=== PATIENT | male | born 1965 | race Caucasian/White ===

== ENCOUNTER 2019-10-06 18:40 | Inpatient (IN) | payer SELFPAY ==
[2019-10-06] VITALS (8 sets, daily range): BP systolic 147–172; BP diastolic 88–111; PULSE 69–106; RESP 14–18; TEMP 36.4–36.8; O2SAT 96–98; BMI 27.3
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
[2019-10-06 19:12] LABS: Basophils # 0.1 10^3/uL (0.0-0.1); Eosinophils # 0.1 10^3/uL (0.0-0.8); Eosinophils % 2.1 %; Hematocrit 43.5 % (42.0-52.0); Hemoglobin 14.5 g/dL (11.7-16.6); Lymphocytes # 1.7 10^3/uL (0.8-4.8); Lymphocytes % 27.2 %; Mean Corpuscular HGB Conc 33.3 g/dL (30.0-36.0); Mean Corpuscular Hemoglobin 29.8 pg (28.0-34.0); Mean Corpuscular Volume 89.3 fL (80-94); Monocytes # 0.6 10^3/uL (0.2-0.9); Monocytes % 10.2 %; Neutrophils # 3.67 10^3/uL (1.8-7.7); Neutrophils % 59.3 %; Nucleated Red Blood Cells % 0 %; Platelet Count 303 10^3/cmm (130-400); Red Blood Count 4.87 10^6/uL (4.1-5.3); Red Cell Distribution Width 12.1 % (12.1-15.1); White Blood Count 6.2 10^3/uL (4.0-10.0)
[2019-10-06] MEDS: morphine 4 mg/mL SDV 1 mL IVP ×3 (19:13→23:47)
[2019-10-06] MEDS: ondansetron 2 mg/ML SDV 2 mL 4 MG IVP (19:14)
[2019-10-06] MEDS: sodium chloride 0.9% 1,000 ML 999 ML IV (19:14)
[2019-10-06 19:34] LABS: Alanine Aminotransferase 29 U/L (0-41); Albumin Level 4.3 g/dL (3.5-5.2); Alkaline Phosphatase 119 IU/L (40-130); Anion Gap 15.8 (5-19); Aspartate Amino Transferase 23 U/L (0-40); Blood Urea Nitrogen 17 mg/dL (6-20); Calcium 9.5 mg/dL (8.5-10.5); Carbon Dioxide 25 mmol/L (22-29); Chloride 102 mmol/L (98-107); Globulin 3.1 g/dL (1.3-4.6); Glomerular Filtration Rate 116.7 mL/min (90-130); Glucose 172 mg/dL (65-115); Lipase 33 U/L (13-60); Osmolality Calculated 288 mOsm/kg (285-295); Potassium 3.8 mmol/L (3.5-5.1); Sodium 139 mmol/L (136-145); Total Bilirubin 0.3 mg/dL (0.15-1.2); Total Protein 7.4 g/dL (6.6-8.7)
[2019-10-06 19:35] LABS: Add Urine Microscopic? NO
[2019-10-06 19:36] LABS: Bilirubin Urine Neg (NEGATIVE); Blood Urine Neg (Negative); Glucose Urine UA Norm (Normal); Ketones Urine Negative (Negative); Leukocyte Esterase Urine Negative (Negative); Nitrate Urine Negative (Negative); Protein Urine Neg (Negative); Urine Appearance Clear (CLEAR); Urine Color Yellow (Yellow); Urobilinogen Urine Norm (Negative); pH Urine 6 (5-7)
[2019-10-06] MEDS: iohexol 300 mg/mL 100 mL Btl IV (19:52)
[2019-10-06] MEDS: piperacillin-tazobactam 3.375 GM in sodium chloride 0.9% (plus) 50 ML IV (21:12)
--- NOTE | 2019-10-06 21:58 | PC.NURSE ---
REPORT GIVEN TO MITCHEL Craft RN MED SURG
[2019-10-06 22:43] LABS: Lactate (Lactic Acid level) 1.8 mmol/L (0.5-2.2)
[2019-10-06] MEDS: sodium chloride 0.9% 1,000 ML 100 ML IV (22:54)
[2019-10-07] VITALS (15 sets, daily range): BP systolic 109–184; BP diastolic 63–99; PULSE 52–84; RESP 15–22; TEMP 36.2–37; O2SAT 94–100
--- NOTE | 2019-10-07 05:42 | PM.HP ---
Providers/Chief Complaint Admitting Physician: Timothy Dc MD Chief Complaint: lower abd pain History of Present Illness Chief Complaint: My right groin hurts History of present illness: Mr. Javid Mata is a pleasant 54 year old male otherwise healthy, presented to the emergency department yesterday evening with right groin hernia that has been incarcerated for the past week or so and the patient has been having intermittent episodes of able to push it partially back and forth, yesterday he came to the ER as has been hurting for the past week and he just could not handle his discomfort more, he continued to be having stable vital signs and patient reports that he had this hernia for about a year and he got so busy to seek surgery, he also reports history of not having a bowel movement for the past 2 weeks yet he continues to pass a lot of gas. Patient reports no previous hernia surgery done on the right groin Upon evaluation in the emergency department lab work was of insignificance and the patient undergone a CT scan of the abdomen and pelvis that showed; Liver: The liver demonstrates punctate calcifications, consistent with remote granulomatous organism exposure. Gallbladder and bile ducts: The gallbladder is normal. Pancreas: The pancreas is normal. Spleen: The spleen demonstrates punctate calcifications, consistent with remote granulomatous organism exposure. Adrenals: The adrenal glands are normal. Kidneys and ureters: The kidneys are normal. Stomach and bowel: Unremarkable. No obstruction. No mucosal thickening. Appendix: A normal appendix is identified. A normal appendix is identified. Intraperitoneal space: Unremarkable. No free air. No significant fluid collection. Vasculature: Unremarkable. No abdominal aortic aneurysm. Lymph nodes: Unremarkable. No enlarged lymph nodes. Bladder: Unremarkable as visualized. Reproductive: Unremarkable as visualized. Bones/joints: The lumbar spine demonstrates mild degenerative changes at multiple levels. Soft tissues: There is a right inguinal hernia which contains a portion of the sigmoid colon but without evidence for incarceration or obstruction. Correlation with clinical and physical examination findings is suggested. CT/CT abdomen pelvis w con* [id number] IMPRESSION: 1. Right inguinal hernia containing a portion of the sigmoid colon. 2. Old granulomatous disease. Patient reports when I asked him that he did have a colonoscopy before few years and was normal, general surgery was consulted for further evaluation and potential intervention. On assessment the patient he said that an attempt to reduce the hernia back by ED provider was done without obvious success yet he was able himself to push the hernia back as used to about 11 PM yesterday. Review of Systems General: Reports: 10 or more systems reviewed and unremarkable except in HPI and below Medications/Allergies Home Medications Medication Instructions Recorded Confirmed Last Taken Type No Known Home Medications 10/06/19 10/06/19 Unknown History Allergies Allergy/AdvReac Type Severity Reaction Status Date / Time No Known Allergies Allergy Verified 10/07/19 06:07 Vitals/I&O/Wt Last Vital Signs Temp 97.9 F 10/07/19 03:16 Pulse 58 L 10/07/19 03:16 Resp 16 10/07/19 03:16 BP 151/76 10/07/19 03:16 Pulse Ox 97 10/07/19 03:16 Weight last 48 hrs Weight 180 lb Physical Exam Narrative: EXAM NARRATIVE: Patient is conscious alert oriented X3 BMI 27.4 Head and neck examination PERRLA no masses no cervical lymphadenopathy no jaundice Cardiac examination audible S1-S2 no murmurs no gallops no arrhythmias Chest is clear bilateral,abscence of Rhonchi or wheezes,no surgical emphysema Abdomen nontender nondistended soft no organomegaly guarding or rigidity/no signs of peritonitis Right groin tenderness without evidence of incarcerated inguinal hernia clinically there is an impulse on cough Extremities no cyanosis no clubbing no edema Data : 10/06/19 19:05 10/06/19 19:05 Micro: Microbiology 10/06/19 19:05 Blood Culture - Preliminary Blood SPECIMEN COLLECTED A&P Assessment and plan (1) Right groin hernia: After thorough history physical examination and reviewing the chart and images with my personal interpretation, I did tour counselor the patient for open right inguinal hernia repair with mesh placement, indications, risks, benefits and alternatives all discussed with the patient and he did agree to proceed. An informed consent per chart Status: Acute Attestations Medical Necessity Statement*: Observation Time Spent in Patient Care: (>than 50% of time spent in counselling and/or direct pt care on unit). Coding Level of Care Code Acute Washing Machine Assembler for Doc Sharif Diagnoses Right groin hernia K40.90
[2019-10-07] MEDS: sodium chloride 0.9% 1,000 ML 100 ML IV ×2 (08:21→18:12)
--- NOTE | 2019-10-07 09:56 | PC.NURSE ---
pt stated he wanted jewelry to be left at bedside before his procedure.
[2019-10-07] MEDS: sodium chloride 0.9% 1,000 ML 999 ML IV (10:09)
--- NOTE | 2019-10-07 10:42 | ANES.PREANE2 ---
Pre-Anesthetic Assessment Pre-Anesthetic Assessment: Height/Weight: Height 1.73 m Weight 81.647 kg Temp Pulse Resp BP Pulse Ox 97.5 F L 63 18 160/96 96 10/07/19 10:04 10/07/19 10:04 10/07/19 10:04 10/07/19 10:04 10/07/19 10:04 Preop Diagnosis: Right groin hernia Proposed Procedure: Operation Date: 10/07/19 11:05 Proposed Procedures p Right Groin Hernia Repair w/mesh(Right) - Timothy Dc MD Familial anesthetic complications: None Was Beta Melina taken within 24 hours: N/A Last intake: Intake Last Liquid Date 10/06/19 Last Liquid Time 23:55 Last Solid Date 10/06/19 Last Solid Time 10:00 Social: Social History: Tobacco and No alcohol Exam: Pre-Anes Outpt Exam: alert, oriented x 3, clear to auscultation bilaterally and regular rate & rhythm Airway: Cervical ROM: WNL MP: 4 Dentition: Chipped Pulmonary: Pulmonary: None reported CV/HEM: CV/HEM: HTN : : None reported Hepatic: Hepatic: None reported Metabolic: Metabolic: None reported Musc/skel: Musc/skel: None reported Neuropsych: Neuropsych: None reported Anesthetic Plan: ASA status: 1 Anesthesia: General Risk of > 500 ml blood loss (7ml/kg in children): No Meds/Allergies Current Medications: Current Medications Generic Name Dose Route Start Last Admin Trade Name Freq PRN Reason Stop Dose Admin Sodium Chloride 1,000 mls @ 100 m ls/hr 10/06/19 21:45 10/07/19 08:21 Sodium Chloride 0.9% IV 100 mls/hr .Q10H MONIK Administration Morphine Sulfate 2 - 4 mg 10/06/19 23:24 10/06/19 23:47 Morphine IVP 4 mg Q2H PRN Administration SEVERE PAIN Data Anesthesia CBC & Chem 7: 10/06/19 19:05 10/06/19 19:05 Other Labs: Laboratory Results - last 48 hr 10/06/19 10/06/19 10/06/19 19:05 19:05 19:05 WBC 6.2 RBC 4.87 Hgb 14.5 Hct 43.5 MCV 89.3 MCH 29.8 MCHC 33.3 RDW 12.1 Plt Count 303 MPV 9.0 Neut % (Auto) 59.3 Lymph % (Auto) 27.2 Bea[place]gard % (Auto) 10.2 Eos % (Auto) 2.1 Baso % (Auto) 1.0 Neut # (Auto) 3.67 Lymph # (Auto) 1.7 [place] # (Auto) 0.6 Eos # (Auto) 0.1 Baso # (Auto) 0.1 Nucleated RBC % (auto) 0 Nucleated RBCs # 0.0 Sodium 139 Potassium 3.8 Chloride 102 Carbon Dioxide 25 Anion Gap 15.8 BUN 17 Creatinine 0.7 GFR Calculation 116.7 Glucose 172 H Calculated Osmolality 288 Lactate 1.8 Calcium 9.5 Total Bilirubin 0.3 AST 23 ALT 29 Alkaline Phosphatase 119 Total Protein 7.4 Albumin 4.3 Globulin 3.1 Lipase 33 Urine Color Urine Appearance Urine pH Ur Specific Gallant Urine Protein Urine Glucose (UA) Urine Ketones Urine Blood Urine Nitrate Urine Bilirubin Urine Urobilinogen Ur Leukocyte Esterase 10/06/19 19:12 WBC RBC Hgb Hct MCV MCH MCHC RDW Plt Count MPV Neut % (Auto) Lymph % (Auto) [place] % (Auto) Eos % (Auto) Baso % (Auto) Neut # (Auto) Lymph # (Auto) [place] # (Auto) Eos # (Auto) Baso # (Auto) Nucleated RBC % (auto) Nucleated RBCs # Sodium Potassium Chloride Carbon Dioxide Anion Gap BUN Creatinine GFR Calculation Glucose Calculated Osmolality Lactate Calcium Total Bilirubin AST ALT Alkaline Phosphatase Total Protein Albumin Globulin Lipase Urine Color Yellow Urine Appearance Clear Urine pH 6 Ur Specific Gallant 1.010 Urine Protein Neg Urine Glucose (UA) Norm Urine Ketones Negative Urine Blood Neg Urine Nitrate Negative Urine Bilirubin Neg Urine Urobilinogen Norm Ur Leukocyte Esterase Negative Micro: Microbiology 10/06/19 19:05 Blood Culture - Preliminary Blood SPECIMEN COLLECTED Cardiac Studies: No Data to Display
--- NOTE | 2019-10-07 10:54 | PC.CHAP ---
Pastoral Care Encounter/Spiritual Assessment Type of Contact [] Declined specimen technician visit [] Patient/Family/Request visit [] Outpatient visit [] Follow-up visit [] Physician referral [] Code/Alert [] Routine visit [] Staff referral [] Actively dying [] Patient sleeping [] Family support [] [] Out of room [] Palliative care [] [] Receiving care in room [] Pre-surgical visit [] Trauma [] Long length of stay [] ICU visit [x] Other: Procedure out of room Relational/Emotional Strength [] Patient feels connected with others/family/visitors/staff [] Distress [] Loneliness/isolation [] Abandonment Spirituality of Patient [] Person of Yessi [] Attends Religious of their Yessi [] Believes in Prayer [] Reads Bible or Faith materials [] There are Spiritual issues to be addressed Permanent Waver Interventions [] Prayer [] Active listening [] Non-anxious presence [] Spiritual/emotional support [] Crisis/trauma care [] Spiritual counseling [] Bereavement support [] Provided bereavement packet [] Provided Bible/devotional materials [] Provided toy/stuffed animal, coloring book to patient or family member [] Provided Communion [] Anointing/Mcdaniels [] Salvation [] Completed spiritual assessment [] Other: Impact on Illness or Injury [] Angry [] Fearful [] Anxious [] Often cries [] Exhaustion [] Unable to work [] Unable to attend protestant [] Unable to walk/stand [] Unable to read [] Unable to drive [] Unable to eat/drink [] Unable to sleep [] Unable to be with family [] Patient intubated [] Other: Summary Procedure out of room, moved from room 251-2 Time spent with patient 5 mins
[2019-10-07] MEDS: lidocaine 2% INJ 20 mL INJECTION (12:28)
--- NOTE | 2019-10-07 12:34 | PM.OP ---
Operative Report Date of procedure: October 07, 2019 Pre-op Diagnosis: Right groin hernia Post-op diagnosis: same (Right large inguinal scrotal hernia containing normal looking viscera and large associated lipoma of the cord) Procedure Done: Right open inguinal hernia repair with mesh placement X large polypropylene tension free Excision of lipoma of the cord Implants: X large polypropylene mesh Specimens removed/disposition: Lipoma of the cord Surgeon: Timothy Dc Slip Injector And Applicator: Surgical joão Llanes Circulating nurse Sweta Anesthesia: General (academic support coordinator Ulises) Estimated blood loss (mL): 10 Condition: stable Disposition: observation Brief History: This is a pleasant 54 years old gentleman presents with symptomatic right groin hernia, full H&P per chart. After thorough history physical examination and reviewing the chart and personal interpretation of the CT scan images I did credit counselor the patient for open right groin hernia repair with mesh placement Procedure: Patient was identified in the holding area and right groin was marked by mysel ,patient was taken to the operating room where he was placed in supine position, antibiotic was given with induction, endotracheal tube was placed per anesthesia, Anne catheter was inserted by the circulating nurse revealing clear urine, prep and drape of both groins and lower abdomen and scrotum including the genitalia was done under the usual sterile technique. Time-out was done verifying the patient's name/date of /planned procedure destination after the procedure, all were in agreement. SCDs confirmed to be functioning, preoperative antibiotics administered per protocol, and beta tremaine protocol was confirmed. I started with a right groin incision 1-1/2 finger above the inguinal ligament towards the pubic tubercle, used 15 blade knife skin incision , continued to dissect using Bovie to subcutaneous, García's fascia down to the external oblique aponeurosis, large right indirect inguinal hernia extending to the scrotum was identified, external oblique aponeurosis was then incised using a 10 blade knife, after application of 2 hemostats across sides of the fascia and opened it, right ileo-inguinal nerve was safeguard, I managed to dissect and deliver the enlarged spermatic cord out of the wound, and placed a Parker drain for traction and countertraction, I dissected the spermatic cord and the vas deferens is identified and safeguarded ,as I identified a right inguinal hernia sac w viable contents. The hernia sac was totally dissected until I reached the patulous deep inguinal ring,.After appropriate dissection large lipoma of the cord was excised and sent for permanent pathology,then the hernia was gently pushed to the abdominal cavity. Attention was now deviated to mesh placement , using polypropylene mesh system was applied tension-free(X-large size), a cone was applied at the deep inguinal ring stabilized by Silk sutures 2/0, then a sheet of mesh was applied onto the floor of the posterior wall of the right inguinal canal and anchored medially to the pubic tubercle then inferiorly to the underlying surface of the inguinal ligament and superiorly to the internal oblique aponeurosis using Silk sutures 2/0, both limbs of the mesh encircled the exit of the cord at the deep inguinal ring, and stitched down. The cord maintained to be in good position thorough irrigation of the wound was done with normal saline and closure of the external oblique aponeurosis was done by 2/O Vicryl, followed by approximation of García's fascia by 3-0 Vicryl then 4/0 Monocryl to close the skin, dressing was then applied in the form of Dermabond. Counts of instruments, sponges and needles were completed at the end of the procedure. Scrotal support was then placed Patient tolerated the procedure well and was taken to the recovery area after extubation I was present for the whole entire procedure
--- NOTE | 2019-10-07 12:51 | SUR.PHASEI ---
1249 PATIENT TO PACU FROM OR. RR EVEN AND UNLABORED. PWD. SPO2 100% ON SIMPLE MASK AT 8L. INCISION TO RIGHT LOWER ABDOMEN, CDI.
--- NOTE | 2019-10-07 13:15 | ANE.PACU2 ---
Inpatient post-anesthesia follow up: Airway intact: Yes Vital signs: Temperature 98.5 F Pulse Rate [Monito r] 106 Pulse Rate 52 Respiratory Rate 24 Blood Pressure [Ri ght Arm] 147/111 Blood Pressure 110/70 Pulse Oximetry 95 Oxygen Delivery Me thod Room Air Oxygen Flow Rate 8 Fraction of Inspir ed Oxygen Hydration adequate: Yes Nausea and vomiting: No Pain level: 1 Mental status: Baseline
--- NOTE | 2019-10-07 13:15 | SUR.PHASEI ---
1305 PATIENT TO MED SURG. NO DISTRESS. RR EVEN AND UNLABORED. INCISION TO RIGHT LOWER GROIN, CDI. PATIENT REFUSING ICE CHIPS. DENIES PAIN. PATIENT AMBULATORY FROM [facility] TO BED WITH STEADY GAIT.
[2019-10-07] MEDS: psyllium powder Pkt 1 PACKET PO (15:24)
[2019-10-07] MEDS: HYDROcodone-acetaminophen 5-325 mg Tablet 1 TAB PO (18:16)
--- NOTE | 2019-10-07 19:27 | PC.NURSE ---
PT HAD INGUINAL REPAIR SURGERY, PT HAS HAD ONE HYDROCODONE, HE HAS BEEN UP AND WALKING IN ROOM.PT HAD A LARGE BM PER PT. PT RESTING AT THIS TIME.
--- NOTE | 2019-10-07 23:00 | PC.NURSE ---
Patient requested that he be disconnected from his IV fluids. He states I am drinking plenty by mouth and doesn't want to get up to pee every 10 minutes.
[2019-10-08 04:10] VITALS: BP 110/70; PULSE 52; RESP 24; TEMP 36.9; O2SAT 95
--- NOTE | 2019-10-08 06:48 | P.DS_ITS ---
Discharge Providers Date of Admission: 10/07/19 15:02 Date of Discharge: October 08, 2019 Attending Provider at Admission: Timothy Dc MD Attending Provider at Discharge: Timothy Dc MD Diagnoses at Discharge Discharge Diagnosis (1) Right groin hernia: Status: Resolved Reason for Visit Reason for Visit: lower abd pain Hospital Course Discharge Summary: Patient was admitted for ongoing right groin pain with element of incarceration of right groin hernia, undergone uneventful open right inguinal hernia repair with mesh placement and postoperatively did well and had a bowel movement and tolerated well p.o. intake, patient continued to have stable vital signs and good urine output, will plan to discharge home today Physical Exam Narrative: EXAM NARRATIVE: Patient is conscious alert oriented X3 BMI 27 Head and neck examination PERRLA no masses no cervical lymphadenopathy no jaundice Abdomen nontender nondistended soft no organomegaly guarding or rigidity/no signs of peritonitis Right groin incision is clean dry and intact and no scrotal swelling Extremities no cyanosis no clubbing no edema Discharge Data Data Completed and Pending: Completed Studies During Hospitalization Category Date Time Status CT abdomen pelvis w con* [id number] Urge nt Cat Scan 10/06/19 19:02 Completed Pending at discharge Category Date Time Status Blood Culture Sta t Lab 10/06/19 19:05 Results Pathology: Surgic al [PTH] Routine Pth 10/07/19 12:52 Received Vitals: Last Vital Signs Temp 98.5 F 10/08/19 04:10 Pulse 52 L 10/08/19 04:10 Resp 24 H 10/08/19 04:10 BP 110/70 10/08/19 04:10 Pulse Ox 95 10/08/19 04:10 Discharge Plan Discharge Patient Disposition: Home Condition: Stable Prescriptions: [place] 5-325 mg tablet 1 tab PO Q6H PRN (Reason: pain) Qty: 28 RF: 0 No Action No Known Home Medications RF: 0 Discharge Orders: Discharge Order (Routine); Ordered 10/08/19 Ordered By: Timothy Dc Referrals: Timothy Dc MD [Physician] - 10/20/19 10:15 am (Please follow up with Dr. Dc at [facility] Surgical services on October 19 at 1015) Discharge Diet: Advance as tolerated Discharge Activity: Limit activity as instructed Patient Instructions: Hydrocodone (By mouth), Inguinal Hernia (DC) Activity Restrictions/Additional Instructions: 1. Patient can shower after 48 hours from surgery 2. Remove Dermabond 7 to 10 days after surgery, if there is a secondary dressing can take down after 48 hours. 3. Up and walking as tolerated 4. Do lift more than 5 pounds first 2 weeks after surgery and not more than 25 pounds 6 to 8 weeks after surgery. 5. Do not operate heavy machinery or drive while using pain medications. 6.Contact the office or return to the ER for worsening nausea vomiting fevers or chills, or noticing any redness around incision sites or discharge. Discharge Date/Time: 10/08/19 09:30 Discharge Attestations Time Spent in Discharge Care*: less than 30 min Specific Discharge Activities: Specific discharge activities: educating patient Status at Discharge: Cognitive status at discharge: cognitively intact , Behavioral status at discharge: cooperative , Functional status at discharge: independent ambulation Overall status at discharge: patient is progressing back to baseline Quality Metrics Clinical Quality Measures During this hospital stay, did patient experience: None Coding Level of Care Code Acute Feather Boner for Doc Sharif Diagnoses Right groin hernia K40.90
[2019-10-08 08:00] VITALS: BP 140/79; PULSE 71; RESP 18; TEMP 36.6; O2SAT 95
[2019-10-08] MEDS: HYDROcodone-acetaminophen 5-325 mg Tablet 1 TAB PO (09:13)
[2019-10-08 10:21] VITALS: BP 140/79; PULSE 71; RESP 18; TEMP 36.6; O2SAT 95
--- NOTE | 2019-10-08 10:21 | PC.NURSE ---
this nurse went over discharge instructions, signs and symptoms of infection and all other instructions in discharge. pt had no questions and this nurse advised pt to call if any questions arise. pt verbalized understanding.
== END 2019-10-08 09:30 | disposition home or self-care (01) | DRG 352 ==
LOC: ER 18:48 → MEDSURG 21:45
PROVIDERS: Physician Assistant; Admitting Provider Surgery; Visit Provider Surgery
PROC: 0YU50JZ Supplement Right Inguinal Region with Synthetic Substitute, Open Approach (ICD-10-PCS; principal; 2019-10-07 11:05)
DX: K40.90 Unilateral inguinal hernia, without obstruction or gangrene, not specified as recurrent (principal); I10 Essential (primary) hypertension
CPT/HCPCS: 12345; 36415; 74177; 80053; 81003; 83605; 83690; 85025; 87040; 88302; 96375; 99283; G0378; J0131; J1100; J2270; J2405; J2543; J2704; J2710; J3010; J3490; J7030; Q9967

== ENCOUNTER 2020-07-03 06:26 | Emergency (ER) | payer SELFPAY ==
[2020-07-03 06:31] VITALS: BP 156/111; PULSE 99; RESP 18; TEMP 35.8; O2SAT 98; BMI 27.3
[2020-07-03 06:50] VITALS: BP 145/95; PULSE 100; RESP 18; O2SAT 99
--- NOTE | 2020-07-03 06:53 | ED_ITS ---
HPI - Skin/Abscess/Foreign Bdy General: Chief complaint: Skin/Abscess/Foreign Body Stated complaint: LEFT UPPER ARE PAIN Time Seen by Provider: 07/03/20 06:30 History of Present Illness: HPI narrative: 55-year-old male comes in he has a abscess on the back of his upper left arm that began over the last couple days it exquisitely tender with any movement. He denies any fever sweats chills he does not recall anything that seem to precipitate this. MD complaint: abscess/boil Onset (ago): day(s) Tetanus up to date: yes Location: LUE Severity: moderate Quality: sharp Pain Consistency: constant Relieving factors: none Exacerbating factors: palpation Associated symptoms: Reports arthralgias and itching; Deny chills, cough, fever(s), myalgias, nausea, rigidity, short of breath or vomiting Treatments prior to arrival: none Review of Systems Const: Denies: fever(s) or chills Card: Denies: chest pain, edema, dyspnea on exertion or orthopnea Resp: Denies: dyspnea, productive cough or non-productive cough GI: Denies: nausea or vomiting Physical Exam Const: COMMON NORMALS: no acute distress GENERAL APPEARANCE: cooperative and comfortable ORIENTATION/CONSCIOUSNESS: Yes awake, Yes oriented to person, Yes oriented to place and Yes oriented to time HENMT: COMMON NORMALS: normocephalic, atraumatic and hearing grossly normal bilaterally HEAD & SCALP: normocephalic and atraumatic Neck/C-Spine: COMMON NORMALS: no JVD Lymph: LYMPHATIC: no lymphadenopathy noted and no lymphedema noted Resp: COMMON NORMALS: normal respiratory effort, No retractions, No use of accessory muscles and clear to auscultation bilaterally AUSCULTATION: clear to auscultation bilaterally Cardio: COMMON NORMALS: no JVD, regular rate, regular rhythm and No murmurs present (Cardio) RATE: regular rate RHYTHM: regular rhythm Extremity: NARRATIVE EXTREMITY EXAM: Large exquisitely tender mildly indurated erythematous lesion on the mid portion of the posterior left upper extremity. Superficially there appears to be little bit of pointing on ultrasound however there is no large abscess cavity with an 18-gauge needle and was able to open up and drain a small area of purulent fluid which was cultured but could not express any significant amount. Neuro: SENSORIUM/ORIENTATION: Yes oriented to person, Yes oriented to place and Yes oriented to time Procedures Abscess I/D Site: upper extremity Side (if applicable): left Technique: other (Small incisions made over 2 areas of pointing with the bevel of an 18-gauge needle) Amount of fluid expressed (mL): 1 Packing used?: none Course Vital Signs: Vital signs: Vital Signs Temperature 96.4 F L 07/03/20 06:31 Pulse Rate 99 07/03/20 06:31 Respiratory Rate 18 07/03/20 06:31 Blood Pressure 156/111 07/03/20 06:31 Pulse Oximetry 98 07/03/20 06:31 MDM - Skin/Abscess/Foreign Bdy MDM Narrative: Medical decision making narrative: On ultrasound there is some superficial small pockets of fluid but everything else deep appears to be a phlegmon. The areas were incised with the bevel of an 18-gauge needle and drained as above see the notes. Very small amount of fluid less than a milliliter was expressed this was cultured. Wound care instructions given s tarted on antibiotics pain medications given apply moist heat frequently. Discharge Plan Discharge Patient Disposition: Home Clinical Impression: Abscess of skin or subcutaneous tissue Condition: Stable Prescriptions: New Bactrim DS 800-160 mg tablet 1 tab PO BID 7 Days Qty: 14 RF: 0 hydrocodone-acetaminophen 5-325 mg tablet 1 tab PO Q6H PRN (Reason: pain) Qty: 10 RF: 0 No [place] 5-325 mg tablet 1 tab PO Q6H PRN (Reason: pain) Qty: 28 RF: 0 Discharge Orders: Discharge ED (Routine); Ordered 07/03/20 Ordered By: Ramin Armando Discharge Diet: Usual diet Discharge Activity: Resume usual activity Patient Instructions: Opioid Safety Coding Level of Care Code ED Technical Staff Engineer for Doc Sharif
[2020-07-03 06:57] VITALS: BP 145/95; PULSE 98; RESP 18; TEMP 36.6; O2SAT 99
== END 2020-07-03 07:02 | disposition home or self-care (01) ==
PROVIDERS: Emergency Provider Family Medicine
DX: L02.414 Cutaneous abscess of left upper limb (principal)
CPT/HCPCS: 10060; 87070; 87077; 87186; 99282

== ENCOUNTER 2020-11-04 05:07 | Observation (INO) | payer SELFPAY ==
[2020-11-04] VITALS (14 sets, daily range): BP systolic 154–185; BP diastolic 88–118; PULSE 61–85; RESP 14–28; TEMP 36.5–37.1; O2SAT 91–100; BMI 26.6
--- NOTE | 2020-11-04 05:22 | CTR_ITS ---
PROCEDURE INFORMATION: Exam: CT Abdomen And Pelvis With Contrast Exam date and time: 11/04/2020 5:22 AM Age: 55 years old Clinical indication: Abdominal pain; Localized; Right upper quadrant (ruq); Patient HX: Severe ruq pain. ; Additional info: Abd pain TECHNIQUE: Imaging protocol: Computed tomography of the abdomen and pelvis with contrast. Radiation optimization: All CT scans at this facility use at least one of these dose optimization techniques: automated exposure control; mA and/or kV adjustment per patient size (includes targeted exams where dose is matched to clinical indication); or iterative reconstruction. Contrast material: OMNI 300; Contrast volume: 95 ml; Contrast route: INTRAVENOUS (IV); COMPARISON: CT abdomen pelvis w con* [id number] 10/06/2019 7:45 PM RADIATION DOSE METRICS: Total DLP (mGy-cm): 1132.43 FINDINGS: Lungs: Tiny calcified granulomas are seen in both lungs. Small calcified lymph nodes noted in the hilar region bilaterally, likely sequela of previous granulomatous disease. Liver: There is tiny calcific densities scattered throughout the liver, likely sequela of previous granulomatous disease. The liver is otherwise unremarkable. Gallbladder and bile ducts: Normal. No calcified stones. No ductal dilation. Pancreas: Normal. No ductal dilation. Spleen: There is tiny calcific densities scattered throughout the spleen, likely sequela of previous granulomatous disease. The spleen is otherwise unremarkable. Adrenal glands: Normal. No mass. Kidneys and ureters: Normal. No hydronephrosis. Stomach and bowel: Unremarkable. No obstruction. No mucosal thickening. Appendix: No evidence of appendicitis. Intraperitoneal space: Unremarkable. No free air. No significant fluid collection. Vasculature: Mild diffuse atherosclerotic disease is present. Lymph nodes: Unremarkable. Urinary bladder: Unremarkable as visualized. Reproductive: Unremarkable as visualized. Bones/joints: Degenerative changes of the spine seen. Soft tissues: Unremarkable. CT/CT abdomen pelvis w con* [id number] IMPRESSION: No acute intra-abdominal or intrapelvic pathology. Radiation Dose CTDIVOL = (mGy): DLP = 1132.43 (mGy-cm)
--- NOTE | 2020-11-04 05:23 | W.ED.BACK ---
Documented by User: Liz Rojas MD 11/04/20 05:24 HPI - Back Pain/Injury General: Chief Complaint: Back Pain/Injury Stated Complaint: ABD PAIN Time Seen by Provider: 11/04/20 05:17 Source: patient Mode of arrival: ambulatory Limitations: no limitations History of Present Illness: HPI Narrative: 55-year-old male states that roughly 1 to 2 hours ago he started having severe right-sided flank pain radiating to his right upper abdomen. States he has had kidney stones the past but this feels different. He denies any worsening improving factors. He had no vomiting or diarrhea. Denies any fevers. He states his pain is currently a 10 out of 10 and does appear to be uncomfortable. Associated symptoms: Reports abdominal pain; Deny chills, dysuria or fever(s) Review of Systems Const: Denies: fever(s), chills, body aches or change in appetite Eyes: Denies: blurry vision or eye discomfort ENMT: Denies: throat pain or dental pain Card: Denies: chest pain Resp: Denies: dyspnea GI: Reports: abdominal pain : Denies: dysuria Musc: Denies: neck pain or back pain Skin/Breast: Denies: rash Neuro: Denies: headache(s) Psych: Denies: depression Devin/Lymph: Denies: easy bruising All/Imm: Denies: urticaria PFSH ED PFSH: Medical History (Updated 11/06/20 @ 00:01 by ) Tobacco dependency Surgical History (Updated 11/04/20 @ 13:11 by Homero Gardner MD) History of hemorrhoidectomy History of hernia repair Family History (Updated 11/04/20 @ 13:11 by Homero Gardner MD) Other Cancer Social History (Updated 11/04/20 @ 13:11 by Homero Gardner MD) Smoking and tobacco status: current every day smoker Alcohol intake: former Physical Exam Const: COMMON NORMALS: no acute distress, patient oriented x3 and healthy appearing HENMT: COMMON NORMALS: normocephalic and atraumatic HEAD & SCALP: normocephalic and atraumatic Eye: COMMON NORMALS: Equal, round and reactive pupils present and EOMs intact bilaterally PUPIL: Yes Equal, round and reactive pupils present Neck/C-Spine: COMMON NORMALS: full ROM and supple Chest: COMMONS NORMALS: normal inspection of the chest and normal palpation of entire chest wall Resp: COMMON NORMALS: normal respiratory effort, No retractions, No use of accessory muscles and clear to auscultation bilaterally AUSCULTATION: clear to auscultation bilaterally Cardio: COMMON NORMALS: regular rate, regular rhythm and No murmurs present (Cardio) RATE: regular rate RHYTHM: regular rhythm GI: COMMON NORMALS: Normal to inspection, nondistended, normoactive bowel sounds present, Soft to palpation and no masses PALPATION: Yes Soft to palpation and Yes Tenderness to palpation present (GI) Details: RUQ Extremity: COMMON NORMALS: normal to inspection and full ROM Neuro: COMMON NORMALS: patient oriented x3, moves all extremities and no focal motor deficits Psych: COMMON NORMALS: mental status grossly normal, Normal thought process present and cooperative THOUGHT PROCESS: Normal thought process present Skin: COMMON NORMALS: no rashes or lesions noted and no wounds GENERAL SKIN EXAM: no rashes or lesions noted Course Vital Signs: Vital signs: Vital Signs Temperature 98.4 F 11/05/20 11:28 Pulse Rate 109 H 11/05/20 11:28 Respiratory Rate 18 11/05/20 11:28 Blood Pressure 143/81 11/05/20 11:28 Pulse Oximetry 95 11/05/20 11:28 MDM - Back Pain/Injury Lab Data: Labs: Lab Results 11/04/20 11/04/20 11/04/20 Range/Units 05:20 05:20 05:20 WBC 6.9 (4.0-10.0) 10^3/ uL RBC 5.35 H (4.1-5.3) 10^6/u L Hgb 15.8 (11.7-16.6) g/dL Hct 47.2 (42.0-52.0) % MCV 88.2 (80-94) fl MCH 29.5 (28.0-34.0) pg MCHC 33.5 (30.0-36.0) g/dL RDW 12.2 (12.1-15.1) % Plt Count 317 (130-400) 10^3/c mm MPV 8.7 (7.4-10.4) fL Neut % (Auto) 43.6 % Lymph % (Auto) 42.5 % Clar[place] % (Auto) 9.4 % Eos % (Auto) 3.2 % Baso % (Auto) 1.0 % Neut # (Auto) 3.00 (1.8-7.7) 10^3/u L Lymph # (Auto) 2.9 (0.8-4.8) 10^3/u L Clarion # (Auto) 0.7 (0.2-0.9) 10^3/u L Eos # (Auto) 0.2 (0.0-0.8) 10^3/u L Baso # (Auto) 0.1 (0.0-0.1) 10^3/u L Nucleated RBC % (a uto) 0 % Nucleated RBCs # 0.0 /100WBC Sodium 141 (136-145) mmol/L Potassium 3.7 (3.5-5.1) mmol/L Chloride 103 (98-107) mmol/L Carbon Dioxide 23 (22-29) mmol/L Anion Gap 18.7 (5-19) BUN 10 (6-20) mg/dL Creatinine 0.7 (0.7-1.2) mg/dL GFR Calculation 116.2 (90-130) mL/min Glucose 146 H (65-115) mg/dL Estimat Average Gl ucose Hemoglobin A1c (4.0-6.0) % Calculated Osmolal ity 294 (285-295) mOsm/k g Calcium 9.3 (8.5-10.5) mg/dL Total Bilirubin 0.3 (0.15-1.2) mg/dL AST 14 (0-40) U/L ALT 15 (0-41) U/L Alkaline Phosphata se 120 (40-130) IU/L Total Protein 7.4 (6.6-8.7) g/dL Albumin 4.2 (3.5-5.2) g/dL Globulin 3.2 (1.3-4.6) g/dL Triglycerides 297 H (0-150) mg/dL Lipase 493 H (13-60) U/L TSH (0.27-4.20) uIU/ mL Urine Color (Yellow) Urine Appearance (CLEAR) Urine pH (5-7) Ur Specific Gravit y (1.005-1.030) Urine Protein (Negative) Urine Glucose (UA) (Normal) Urine Ketones (Negative) Urine Blood (Negative) Urine Nitrate (Negative) Urine Bilirubin (Negative) Prot Sulfosalicyli c Acd (Negative) Urine Urobilinogen (Negative) mg/dL Ur Leukocyte Ebony ase (Negative) 11/04/20 11/04/20 11/04/20 Range/Units 05:20 05:20 07:08 WBC (4.0-10.0) 10^3/ uL RBC (4.1-5.3) 10^6/u L Hgb (11.7-16.6) g/dL Hct (42.0-52.0) % MCV (80-94) fl MCH (28.0-34.0) pg MCHC (30.0-36.0) g/dL RDW (12.1-15.1) % Plt Count (130-400) 10^3/c mm MPV (7.4-10.4) fL Neut % (Auto) % Lymph % (Auto) % Clarion % (Auto) % Eos % (Auto) % Baso % (Auto) % Neut # (Auto) (1.8-7.7) 10^3/u L Lymph # (Auto) (0.8-4.8) 10^3/u L Clarion # (Auto) (0.2-0.9) 10^3/u L Eos # (Auto) (0.0-0.8) 10^3/u L Baso # (Auto) (0.0-0.1) 10^3/u L Nucleated RBC % (a uto) % Nucleated RBCs # /100WBC Sodium (136-145) mmol/L Potassium (3.5-5.1) mmol/L Chloride (98-107) mmol/L Carbon Dioxide (22-29) mmol/L Anion Gap (5-19) BUN (6-20) mg/dL Creatinine (0.7-1.2) mg/dL GFR Calculation (90-130) mL/min Glucose (65-115) mg/dL Estimat Average Gl ucose 117 Hemoglobin A1c 5.7 (4.0-6.0) % Calculated Osmolal ity (285-295) mOsm/k g Calcium (8.5-10.5) mg/dL Total Bilirubin (0.15-1.2) mg/dL AST (0-40) U/L ALT (0-41) U/L Alkaline Phosphata se (40-130) IU/L Total Protein (6.6-8.7) g/dL Albumin (3.5-5.2) g/dL Globulin (1.3-4.6) g/dL Triglycerides (0-150) mg/dL Lipase (13-60) U/L TSH 1.61 (0.27-4.20) uIU/ mL Urine Color Straw (Yellow) Urine Appearance Clear (CLEAR) Urine pH 8 H (5-7) Ur Specific Gravit y 1.010 (1.005-1.030) Urine Protein Neg (Negative) Urine Glucose (UA) Norm (Normal) Urine Ketones Negative (Negative) Urine Blood Neg (Negative) Urine Nitrate Negative (Negative) Urine Bilirubin Neg (Negative) Prot Sulfosalicyli c Acd Negative (Negative) Urine Urobilinogen Norm (Negative) mg/dL Ur Leukocyte Ebony ase Negative (Negative) Discharge Plan Discharge Patient Disposition: Placed in Observation Admit Provider: Homero Gardner Discharge Diet: Low Fat Discharge Activity: Increase activity as tolerated Sign Out Sign Out Data: Patient Sign Out occurred on 11/04/20 at 06:02. Patient's care was discussed, and care was transferred from to Lexa Salas MD. Post-Handoff Eval: Patient care handed off received pending completion of evaluation. CT scan without acute abnormality to explain the patient's symptoms. Lipase is elevated. Patient meets clinical diagnosis of pancreatitis. Attempted additional analgesia without resolution of symptoms, patient continued to have moderate to severe pain. Discussed potential disposition with the patient, he is uncomfortable given pain level at being discharged at this time. Hospitalist service contacted and patient to be admitted to observation class. Lexa Salas MD Emergency Medicine Coding Level of Care Code ED Bank Messenger for [facility] Fwd Exam Comprehensive Documented by User: Lexa Salas MD 11/06/20 06:10 HPI - Back Pain/Injury General: Chief Complaint: Back Pain/Injury Stated Complaint: ABD PAIN Time Seen by Provider: 11/04/20 05:17 [facility] ED PFSH: Medical History (Updated 11/06/20 @ 00:01 by ) Tobacco dependency Surgical History (Updated 11/04/20 @ 13:11 by Homero Gardner MD) History of hemorrhoidectomy History of hernia repair Family History (Updated 11/04/20 @ 13:11 by Homero Gardner MD) Other Cancer Social History (Updated 11/04/20 @ 13:11 by Homero Gardner MD) Smoking and tobacco status: current every day smoker Alcohol intake: former Course Vital Signs: Vital signs: Vital Signs Temperature 98.4 F 11/05/20 11:28 Pulse Rate 109 H 11/05/20 11:28 Respiratory Rate 18 11/05/20 11:28 Blood Pressure 143/81 11/05/20 11:28 Pulse Oximetry 95 11/05/20 11:28 MDM - Back Pain/Injury Lab Data: Labs: Lab Results 11/04/20 11/04/20 11/04/20 Range/Units 05:20 05:20 05:20 WBC 6.9 (4.0-10.0) 10^3/ uL RBC 5.35 H (4.1-5.3) 10^6/u L Hgb 15.8 (11.7-16.6) g/dL Hct 47.2 (42.0-52.0) % MCV 88.2 (80-94) fl MCH 29.5 (28.0-34.0) pg MCHC 33.5 (30.0-36.0) g/dL RDW 12.2 (12.1-15.1) % Plt Count 317 (130-400) 10^3/c mm MPV 8.7 (7.4-10.4) fL Neut % (Auto) 43.6 % Lymph % (Auto) 42.5 % Clarion % (Auto) 9.4 % Eos % (Auto) 3.2 % Baso % (Auto) 1.0 % Neut # (Auto) 3.00 (1.8-7.7) 10^3/u L Lymph # (Auto) 2.9 (0.8-4.8) 10^3/u L Clarion # (Auto) 0.7 (0.2-0.9) 10^3/u L Eos # (Auto) 0.2 (0.0-0.8) 10^3/u L Baso # (Auto) 0.1 (0.0-0.1) 10^3/u L Nucleated RBC % (a uto) 0 % Nucleated RBCs # 0.0 /100WBC Sodium 141 (136-145) mmol/L Potassium 3.7 (3.5-5.1) mmol/L Chloride 103 (98-107) mmol/L Carbon Dioxide 23 (22-29) mmol/L Anion Gap 18.7 (5-19) BUN 10 (6-20) mg/dL Creatinine 0.7 (0.7-1.2) mg/dL GFR Calculation 116.2 (90-130) mL/min Glucose 146 H (65-115) mg/dL Estimat Average Gl ucose Hemoglobin A1c (4.0-6.0) % Calculated Osmolal ity 294 (285-295) mOsm/k g Calcium 9.3 (8.5-10.5) mg/dL Total Bilirubin 0.3 (0.15-1.2) mg/dL AST 14 (0-40) U/L ALT 15 (0-41) U/L Alkaline Phosphata se 120 (40-130) IU/L Total Protein 7.4 (6.6-8.7) g/dL Albumin 4.2 (3.5-5.2) g/dL Globulin 3.2 (1.3-4.6) g/dL Triglycerides 297 H (0-150) mg/dL Lipase 493 H (13-60) U/L TSH (0.27-4.20) uIU/ mL Urine Color (Yellow) Urine Appearance (CLEAR) Urine pH (5-7) Ur Specific Gravit y (1.005-1.030) Urine Protein (Negative) Urine Glucose (UA) (Normal) Urine Ketones (Negative) Urine Blood (Negative) Urine Nitrate (Negative) Urine Bilirubin (Negative) Prot Sulfosalicyli c Acd (Negative) Urine Urobilinogen (Negative) mg/dL Ur Leukocyte Ebony ase (Negative) 11/04/20 11/04/20 11/04/20 Range/Units 05:20 05:20 07:08 WBC (4.0-10.0) 10^3/ uL RBC (4.1-5.3) 10^6/u L Hgb (11.7-16.6) g/dL Hct (42.0-52.0) % MCV (80-94) fl MCH (28.0-34.0) pg MCHC (30.0-36.0) g/dL RDW (12.1-15.1) % Plt Count (130-400) 10^3/c mm MPV (7.4-10.4) fL Neut % (Auto) % Lymph % (Auto) % Clarion % (Auto) % Eos % (Auto) % Baso % (Auto) % Neut # (Auto) (1.8-7.7) 10^3/u L Lymph # (Auto) (0.8-4.8) 10^3/u L Clarion # (Auto) (0.2-0.9) 10^3/u L Eos # (Auto) (0.0-0.8) 10^3/u L Baso # (Auto) (0.0-0.1) 10^3/u L Nucleated RBC % (a uto) % Nucleated RBCs # /100WBC Sodium (136-145) mmol/L Potassium (3.5-5.1) mmol/L Chloride (98-107) mmol/L Carbon Dioxide (22-29) mmol/L Anion Gap (5-19) BUN (6-20) mg/dL Creatinine (0.7-1.2) mg/dL GFR Calculation (90-130) mL/min Glucose (65-115) mg/dL Estimat Average Gl ucose 117 Hemoglobin A1c 5.7 (4.0-6.0) % Calculated Osmolal ity (285-295) mOsm/k g Calcium (8.5-10.5) mg/dL Total Bilirubin (0.15-1.2) mg/dL AST (0-40) U/L ALT (0-41) U/L Alkaline Phosphata se (40-130) IU/L Total Protein (6.6-8.7) g/dL Albumin (3.5-5.2) g/dL Globulin (1.3-4.6) g/dL Triglycerides (0-150) mg/dL Lipase (13-60) U/L TSH 1.61 (0.27-4.20) uIU/ mL Urine Color Straw (Yellow) Urine Appearance Clear (CLEAR) Urine pH 8 H (5-7) Ur Specific Gravit y 1.010 (1.005-1.030) Urine Protein Neg (Negative) Urine Glucose (UA) Norm (Normal) Urine Ketones Negative (Negative) Urine Blood Neg (Negative) Urine Nitrate Negative (Negative) Urine Bilirubin Neg (Negative) Prot Sulfosalicyli c Acd Negative (Negative) Urine Urobilinogen Norm (Negative) mg/dL Ur Leukocyte Ebony ase Negative (Negative) Discharge Plan Discharge Patient Disposition: Placed in Observation Admit Provider: Homero Gardner Discharge Diet: Low Fat Discharge Activity: Increase activity as tolerated Sign Out Sign Out Data: Patient Sign Out occurred on 11/04/20 at 06:02. Patient's care was discussed, and care was transferred from to Lexa Salas MD. Post-Handoff Eval: Patient care handed off received pending completion of evaluation. CT scan without acute abnormality to explain the patient's symptoms. Lipase is elevated. Patient meets clinical diagnosis of pancreatitis. Attempted additional analgesia without resolution of symptoms, patient continued to have moderate to severe pain. Discussed potential disposition with the patient, he is uncomfortable given pain level at being discharged at this time. Hospitalist service contacted and patient to be admitted to observation class. Lexa Salas MD Emergency Medicine Coding Level of Care Code ED Bank Messenger for Chg Fwd Exam Comprehensive
[2020-11-04] MEDS: sodium chloride 0.9% 1,000 ML 999 ML IV (05:30)
[2020-11-04] MEDS: ondansetron 2 mg/ML SDV 2 mL 4 MG IVP ×2 (05:30→20:37)
[2020-11-04] MEDS: HYDROmorphone 1 mg/mL INJ 1 mL IVP (05:31)
[2020-11-04] MEDS: iohexol 300 mg/mL 100 mL Btl IV (05:38)
[2020-11-04 05:39] LABS: Basophils # 0.1 10^3/uL (0.0-0.1); Eosinophils # 0.2 10^3/uL (0.0-0.8); Eosinophils % 3.2 %; Hematocrit 47.2 % (42.0-52.0); Hemoglobin 15.8 g/dL (11.7-16.6); Lymphocytes # 2.9 10^3/uL (0.8-4.8); Lymphocytes % 42.5 %; Mean Corpuscular HGB Conc 33.5 g/dL (30.0-36.0); Mean Corpuscular Hemoglobin 29.5 pg (28.0-34.0); Mean Corpuscular Volume 88.2 fl (80-94); Mean Platelet Volume 8.7 fL (7.4-10.4); Monocytes # 0.7 10^3/uL (0.2-0.9); Monocytes % 9.4 %; Neutrophils % 43.6 %; Nucleated Red Blood Cells % 0 %; Platelet Count 317 10^3/cmm (130-400); Red Blood Count 5.35 10^6/uL (4.1-5.3); Red Cell Distribution Width 12.2 % (12.1-15.1); White Blood Count 6.9 10^3/uL (4.0-10.0)
[2020-11-04 06:02] LABS: Alanine Aminotransferase 15 U/L (0-41); Albumin Level 4.2 g/dL (3.5-5.2); Alkaline Phosphatase 120 IU/L (40-130); Anion Gap 18.7 (5-19); Aspartate Amino Transferase 14 U/L (0-40); Blood Urea Nitrogen 10 mg/dL (6-20); Calcium 9.3 mg/dL (8.5-10.5); Carbon Dioxide 23 mmol/L (22-29); Chloride 103 mmol/L (98-107); Globulin 3.2 g/dL (1.3-4.6); Glomerular Filtration Rate 116.2 mL/min (90-130); Glucose 146 mg/dL (65-115); Osmolality Calculated 294 mOsm/kg (285-295); Potassium 3.7 mmol/L (3.5-5.1); Sodium 141 mmol/L (136-145); Total Bilirubin 0.3 mg/dL (0.15-1.2); Total Protein 7.4 g/dL (6.6-8.7)
[2020-11-04 06:09] LABS: Lipase 493 U/L (13-60)
[2020-11-04] MEDS: HYDROmorphone 1 mg/mL INJ 1 mL 0.5 MG IVP ×2 (07:12→09:48)
[2020-11-04 07:24] LABS: Add Urine Microscopic? NO; Charge for UA Resulting for Rev
[2020-11-04 07:55] LABS: Bilirubin Urine Neg (Negative); Blood Urine Neg (Negative); Glucose Urine UA Norm (Normal); Ketones Urine Negative (Negative); Leukocyte Esterase Urine Negative (Negative); Nitrate Urine Negative (Negative); Protein Urine Neg (Negative); Sulfosalicylic Acid Urine Negative (Negative); Urine Appearance Clear (CLEAR); Urine Color Straw (Yellow); Urobilinogen Urine Norm (Negative); pH Urine 8 (5-7)
[2020-11-04 07:59] LABS: Triglycerides 297 mg/dL (0-150)
--- NOTE | 2020-11-04 08:26 | PC.NURSE ---
Pt lying R-side with eyes closed, appears to be asleep, no distress noted.
--- NOTE | 2020-11-04 13:09 | PM.HP ---
Providers/Chief Complaint Admitting Physician: Homero Gardner MD Chief Complaint: ABD PAIN History of Present Illness Javid Mata is a 55 year old male who presents to the hospital with complaints of abdominal pain. He reports this started 1 to 2 days ago. Pain is mainly in his epigastric and right upper quadrant area. He has had some nausea, and vomiting. He has had no diarrhea. He reports no fever. There is been no overt blood in his vomit, nor is he had any melena or hematochezia. He reports no issues with shortness of breath. He reports no prior symptoms that were similar in pain other than a kidney stone in the past. Last bowel movement was yesterday, normal with no evidence of constipation at that time. Review of Systems General: Reports: 10 or more systems reviewed and unremarkable except in HPI and below Const: Reports: malaise; Denies: fever(s) or chills Eyes: Denies: change in vision ENMT: Denies: throat pain Card: Denies: chest pain Resp: Denies: dyspnea GI: Reports: abdominal pain, nausea and vomiting; Denies: hematochezia or melena : Denies: flank pain Musc: Denies: neck pain Skin/Breast: Denies: rash Neuro: Denies: headache(s) Psych: Denies: anxiety Endo: Denies: polyuria Devin/Lymph: Denies: easy bruising Medications/Allergies Home Medications Medication Instructions Recorded Confirmed Last Taken Type No Known Home Medications 11/04/20 11/04/20 Unknown History Allergies Allergy/AdvReac Type Severity Reaction Status Date / Time No Known Allergies Allergy Verified 10/07/19 06:07 PFSH Acute PFSH: Medical History (Updated 11/04/20 @ 13:15 by Homero Gardner MD) Tobacco dependency Surgical History (Updated 11/04/20 @ 13:11 by Homero Gardner MD) History of hemorrhoidectomy History of hernia repair Family History (Updated 11/04/20 @ 13:11 by Homero Gardner MD) Other Cancer Social History (Updated 11/04/20 @ 13:11 by Homero Gardner MD) Smoking and tobacco status: current every day smoker Alcohol intake: former Substance/Drug Use: former Supplemental PFSH Information: Homeless Vitals/I&O/Wt Last Vital Signs Temp 98.1 F 11/04/20 05:11 Pulse 77 11/04/20 12:19 Resp 16 11/04/20 12:19 BP 162/92 11/04/20 12:19 Pulse Ox 94 11/04/20 12:19 Weight last 48 hrs Weight 79.379 kg Physical Exam Narrative: EXAM NARRATIVE: General exam is a white male who is sleeping peacefully but when awoke, complains of abdominal discomfort HEENT: Pupils equally round. Oropharynx clear. Neck is supple no lymphadenopathy or thyromegaly Cardiovascular regular rate and rhythm without murmur, no S3 or S4 Lungs are clear no wheezing or crackles Abdomen is soft with positive bowel sounds. No obvious organomegaly. Abdomen has subjective tenderness in the epigastric area as well as the right upper quadrant. exam is deferred Extremities no cyanosis clubbing or edema Skin no rash Neuro no obvious focal deficits. Data : 11/04/20 05:20 11/04/20 05:20 Other data: LFTs are normal Triglyceride level 297 Lipase [address] abdomen pelvis negative, no gallbladder duct dilation A&P Assessment and plan (1) Intractable vomiting: Etiology not determined. Potentially could be related to pancreatitis although CT negative. Cannot rule out peptic ulcer disease. N.p.o. IV Protonix Pain control Nausea control Check urine drug screen as THC might play a role. Status: Acute (2) Elevated lipase: No evidence of pancreatic inflammation on CT. Still a small possibility of pancreatitis See notations above Repeat lipase level tomorrow. Status: Acute (3) Tobacco dependency: Encourage abstinence Status: Acute Additional A&P Information Hyperglycemia. Check A1c. Homeless. Will require resources from discharge planning. Full code Lovenox for DVT prophylaxis Attestations Medical Necessity Statement*: Will need less than 2 midnight stay for evaluation and treatment of intractable nausea and vomiting. Time Spent in Patient Care: Greater than 35 minutes Coding Level of Care Code Acute Research Associate [employer] for Chg Fwd Diagnoses Intractable vomiting R11.10 Elevated lipase R74.8 Tobacco dependency F17.200
[2020-11-04 13:32] LABS: Estmated Average Glucose 117; Hemoglobin A1C 5.7 % (4.0-6.0)
[2020-11-04 13:40] LABS: Thyroid Stimulating Hormone 1.61 uIU/mL (0.27-4.20)
[2020-11-04] MEDS: pantoprazole 40 mg SDV IVP (14:04)
[2020-11-04] MEDS: sodium chloride 0.9% 1,000 ML 100 ML IV ×2 (14:04→23:57)
--- NOTE | 2020-11-04 15:12 | PC.NURSE ---
Pt refusing lovenox after several attempts to educate on purpose of medication.
[2020-11-04] MEDS: morphine 4 mg/mL SDV 1 mL 2 MG IVP (20:37)
[2020-11-05] VITALS: BP 163/79; PULSE 82; RESP 18; TEMP 37.2; O2SAT 96
[2020-11-05] MEDS: pantoprazole 40 mg SDV IVP (01:13)
[2020-11-05 04:00] VITALS: BP 130/76; PULSE 92; RESP 18; TEMP 37.1; O2SAT 94
[2020-11-05 05:16] LABS: Basophils # 0.1 10^3/uL (0.0-0.1); Basophils % 0.5 %; Eosinophils # 0.2 10^3/uL (0.0-0.8); Eosinophils % 1.5 %; Hematocrit 45.7 % (42.0-52.0); Hemoglobin 14.6 g/dL (11.7-16.6); Lymphocytes # 2.1 10^3/uL (0.8-4.8); Lymphocytes % 17.6 %; Mean Corpuscular HGB Conc 31.9 g/dL (30.0-36.0); Mean Corpuscular Hemoglobin 29.5 pg (28.0-34.0); Mean Corpuscular Volume 92.3 fl (80-94); Mean Platelet Volume 9.4 fL (7.4-10.4); Neutrophils # 8.65 10^3/uL (1.8-7.7); Neutrophils % 72.1 %; Nucleated Red Blood Cells % 0 %; Platelet Count 186 10^3/cmm (130-400); Red Blood Count 4.95 10^6/uL (4.1-5.3); Red Cell Distribution Width 12.4 % (12.1-15.1)
--- NOTE | 2020-11-05 05:33 | PC.NURSE ---
shift note patient slept this shift, requested pain med and c/o nausea x1 early in the shift, no emesis, patient reminded that urine sample is still needed, continent of B&B, ambulates independently
[2020-11-05 05:36] LABS: Alanine Aminotransferase 26 U/L (0-41); Albumin Level 3.3 g/dL (3.5-5.2); Alkaline Phosphatase 117 IU/L (40-130); Blood Urea Nitrogen 10 mg/dL (6-20); Carbon Dioxide 21 mmol/L (22-29); Chloride 102 mmol/L (98-107); Glomerular Filtration Rate 171.4 mL/min (90-130); Glucose 92 mg/dL (65-115); Lipase 34 U/L (13-60); Osmolality Calculated 277 mOsm/kg (285-295); Sodium 134 mmol/L (136-145); Total Bilirubin 0.7 mg/dL (0.15-1.2); Total Protein 6.3 g/dL (6.6-8.7)
[2020-11-05 05:38] LABS: Anion Gap 15.5 (5-19); Aspartate Amino Transferase 27 U/L (0-40); Potassium 4.5 mmol/L (3.5-5.1)
[2020-11-05 07:32] VITALS: BP 142/77; PULSE 91; RESP 16; TEMP 36.6; O2SAT 93
[2020-11-05 09:54] LABS: Amphetamines Screen Urine Positive (Negative); Barbiturates Screen Urine Negative (Negative); Benzodiazepines Screen Urine Negative (Negative); Cocaine Screen Urine Negative (Negative); Opiate Screen Urine Positive (Negative); PCP Screen Urine Negative (Negative); THC Screen Urine Negative (Negative)
[2020-11-05] MEDS: sodium chloride 0.9% 1,000 ML 100 ML IV (10:42)
[2020-11-05 11:28] VITALS: BP 143/81; PULSE 109; RESP 18; TEMP 36.9; O2SAT 95
--- NOTE | 2020-11-05 12:14 | P.DS_ITS ---
Discharge Providers Date of Admission: 11/04/20 10:29 Date of Discharge: November 05, 2020 Attending Provider at Admission: Homero Gardner MD Attending Provider at Discharge: Homero Gardner MD Diagnoses at Discharge Discharge Diagnosis (1) Intractable vomiting: Status: Acute (2) Elevated lipase: Status: Acute (3) Tobacco dependency: Status: Acute Reason for Visit Reason for Visit: ABD PAIN Hospital Course Hospital Course John is a 55-year-old white male who presented with abdominal pain to the emergency department with intractable vomiting. His lipase was slightly elevated at 493. CT was benign as were the rest of his laboratory. Triglyceride level slightly elevated. He was given pain medicine in the emergency department as well as fluids. Secondary to his intractable nausea and vomiting in the emergency department with p.o. challenges he was placed in observation. He was hydrated overnight. He was given Protonix. The next day he was fed and able to tolerate a diet without significant pain. Repeat lipase in the morning was 34. Urine drug screen ultimately came back positive for amphetamines. Opiates were also positive but he had received opiates in the emergency department. As he was taking p.o., having no further significant pain or vomiting he was discharged from the hospital for follow-up as an outpatient in 1 week. He reported homelessness and resources were given by discharge planning. Physical Exam Narrative: EXAM NARRATIVE: General exam no apparent distress Neck is supple Cardiovascular regular rate and rhythm Lungs clear Abdomen is soft, positive bowel sounds Extremities no cyanosis clubbing or edema Discharge Data Data Completed and Pending: Completed Studies During Hospitalization Category Date Time Status CT abdomen pelvis w con* [id number] Urge nt Cat Scan 11/04/20 05:22 Completed Labs from last 24 hours 11/05/20 11/05/20 11/05/20 08:58 04:35 04:35 WBC 12.0 H RBC 4.95 Hgb 14.6 Hct 45.7 MCV 92.3 MCH 29.5 MCHC 31.9 RDW 12.4 Plt Count 186 D MPV 9.4 Neut % (Auto) 72.1 Lymph % (Auto) 17.6 Anderson % (Auto) 8.0 Eos % (Auto) 1.5 Baso % (Auto) 0.5 Neut # (Auto) 8.65 H Lymph # (Auto) 2.1 Anderson # (Auto) 1.0 H Eos # (Auto) 0.2 Baso # (Auto) 0.1 Nucleated RBC % (a uto) 0 Nucleated RBCs # 0.0 Sodium 134 L Potassium 4.5 Chloride 102 Carbon Dioxide 21 L Anion Gap 15.5 BUN 10 Creatinine 0.5 L GFR Calculation 171.4 H Glucose 92 Estimat Average Gl ucose Hemoglobin A1c Calculated Osmolal ity 277 L Calcium 8.0 L Total Bilirubin 0.7 AST 27 ALT 26 Alkaline Phosphata se 117 Total Protein 6.3 L Albumin 3.3 L Globulin 3.0 Lipase 34 TSH Urine Opiates Scre en Positive H Ur Barbiturates Sc reen Negative Ur Phencyclidine S crn Negative Ur Amphetamines Sc reen Positive H U Benzodiazepines Scrn Negative Urine Cocaine Scre en Negative U Marijuana (THC) Screen Negative 11/04/20 11/04/20 05:20 05:20 WBC RBC Hgb Hct MCV MCH MCHC RDW Plt Count MPV Neut % (Auto) Lymph % (Auto) Anderson % (Auto) Eos % (Auto) Baso % (Auto) Neut # (Auto) Lymph # (Auto) Anderson # (Auto) Eos # (Auto) Baso # (Auto) Nucleated RBC % (a uto) Nucleated RBCs # Sodium Potassium Chloride Carbon Dioxide Anion Gap BUN Creatinine GFR Calculation Glucose Estimat Average Gl ucose 117 Hemoglobin A1c 5.7 Calculated Osmolal ity Calcium Total Bilirubin AST ALT Alkaline Phosphata se Total Protein Albumin Globulin Lipase TSH 1.61 Urine Opiates Scre en Ur Barbiturates Sc reen Ur Phencyclidine S crn Ur Amphetamines Sc reen U Benzodiazepines Scrn Urine Cocaine Scre en U Marijuana (THC) Screen Vitals: Last Vital Signs Temp 98.4 F 11/05/20 11:28 Pulse 109 H 11/05/20 11:28 Resp 18 11/05/20 11:28 BP 143/81 11/05/20 11:28 Pulse Ox 95 11/05/20 11:28 Discharge Plan Discharge Patient Disposition: Home Condition: Stable Prescriptions: New pantoprazole [Protonix] 40 mg tablet,delayed release (DR/EC) 40 mg PO BID Qty: 60 RF: 0 No Action No Known Home Medications RF: 0 Discharge Orders: Discharge Order (Routine); Ordered 11/05/20 Ordered By: Homero Gardner Referrals: [facility] [Other] (If you would like some assistance with homeless shelters or house assistance please contact [facility] at [phone] and ask for reasources.) [facility] [Other] ([facility] is a homeless correction. They do require you to go to the cage operator's office and have a background check to enter. If you would like assistance please call them at [phone].) [facility] [Other] ([facility] a [facility] for [facility], if you would like their assistance please contact them at [phone].) Discharge Diet: Low Fat Discharge Activity: Increase activity as tolerated Patient Instructions: Opioid Safety Activity Restrictions/Additional Instructions: Follow-up with primary care provider 3 to 5 days. Discharge Attestations Time Spent in Discharge Care*: greater than 30 min Status at Discharge: Cognitive status at discharge: cognitively intact , Behavioral status at discharge: cooperative , Quality Metrics Clinical Quality Measures During this hospital stay, did patient experience: None Coding Level of Care Code Acute Chg FW DC note Diagnoses Intractable vomiting R11.10 Elevated lipase R74.8 Tobacco dependency F17.200
--- NOTE | 2020-11-05 16:18 | PC.RESP ---
SMOKING CESSATION INFORMATION SENT TO PATIENT.
--- NOTE | 2020-11-08 10:51 | PC.SOCIAL ---
pts number that is listed isn't a working number, called number listed for , unable to leave message.
== END 2020-11-05 14:00 | disposition home or self-care (01) ==
LOC: ER 10:13 → MEDSURG 12:10
PROVIDERS: Emergency Medicine; Admitting Provider Internal Medicine; Emergency Provider Emergency Medicine; Visit Provider Internal Medicine
DX: R11.10 Vomiting, unspecified (principal); R74.8 Abnormal levels of other serum enzymes; F17.210 Nicotine dependence, cigarettes, uncomplicated; E72.51 Non-ketotic hyperglycinemia; Z59.0 Homelessness
CPT/HCPCS: 36415; 74177; 80053; 80306; 81003; 83036; 83690; 84443; 84478; 85025; 96361; 96374; 96375; 96376; 99285; C9113; G0378; J1170; J2270; J2405; J7030; Q9967

== ENCOUNTER 2021-04-16 10:50 | Emergency (ER) | payer SELFPAY ==
[2021-04-16 10:57] VITALS: BP 134/88; PULSE 83; RESP 18; TEMP 36.8; O2SAT 99; BMI 27.3
--- NOTE | 2021-04-16 11:13 | ED_ITS ---
HPI - General Adult General: Chief complaint: General Medical Stated complaint: Kidney Pain Time Seen by Provider: 04/16/21 11:04 Source: patient Mode of arrival: ambulatory Limitations: no limitations History of Present Illness: 54-year-old male comes in complaining of bilateral flank pain. He denies any dysuria. Refers most of his pain to the epigastrium and the right flank area. He denies hematochezia melena hematemesis denies any hematuria. No fever sweats chills vomiting or diarrhea or shortness of breath. Onset (ago): day(s) Location: left (Flank) and right (Flank) Quality: stabbing Pain Consistency: constant Relieving factors: none Associated symptoms: Deny chest pain, confusion, cough, diaphoresis, decreased appetite, dyspnea, fevers/chills, headache(s), malaise, nausea, rash, palpitations, seizures, short of breath, syncope, vomiting or weakness Treatments prior to arrival: none Review of Systems Const: Denies: malaise or diaphoresis ENMT: Denies: throat pain, ear or mastoid pain, nasal discharge or nasal congestion Card: Denies: chest pain, palpitations or syncope Resp: Denies: dyspnea GI: Denies: nausea or vomiting : Denies: flank pain, dysuria, urinary frequency or urinary urgency Skin/Breast: Denies: rash Neuro: Denies: headache(s) or confusion PFSH ED PFSH: Medical History Tobacco dependency Surgical History History of hemorrhoidectomy History of hernia repair Family History Other Cancer Social History Smoking and tobacco status: current every day smoker Alcohol intake: former Physical Exam Const: COMMON NORMALS: no acute distress GENERAL APPEARANCE: cooperative and comfortable ORIENTATION/CONSCIOUSNESS: Yes awake, Yes oriented to person, Yes oriented to place and Yes oriented to time HENMT: COMMON NORMALS: normocephalic, atraumatic and hearing grossly normal bilaterally HEAD & SCALP: normocephalic and atraumatic Neck/C-Spine: COMMON NORMALS: no JVD Resp: COMMON NORMALS: normal respiratory effort, No retractions, No use of accessory muscles and clear to auscultation bilaterally AUSCULTATION: clear to auscultation bilaterally Cardio: COMMON NORMALS: no JVD, regular rate, regular rhythm and No murmurs p resent (Cardio) RATE: regular rate RHYTHM: regular rhythm GI: COMMON NORMALS: Soft to palpation and No hepatosplenomegaly present AUSCULTATION: Yes normoactive bowel sounds PALPATION: Yes Soft to palpation, Yes Tenderness to palpation present (GI) (diffuse), No Guarding due to palpation present (GI) and Yes No hepatosplenomegaly present Extremity: COMMON NORMALS: normal to inspection, capillary refill normal, no clubbing, cyanosis or edema, no calf tenderness and no pedal edema Neuro: SENSORIUM/ORIENTATION: Yes oriented to person, Yes oriented to place and Yes oriented to time Skin: COMMON NORMALS: no rashes or lesions noted GENERAL SKIN EXAM: no rashes or lesions noted Course Vital Signs: Vital signs: Vital Signs Temperature 98.2 F 04/16/21 10:57 Pulse Rate 84 04/16/21 14:23 Respiratory Rate 16 04/16/21 14:23 Blood Pressure 115/73 04/16/21 14:23 Pulse Oximetry 98 04/16/21 14:[address] [facility] - General Adult Medical Decision Making Duodenitis on the CT. Start still Carafate pantoprazole bland diet clear liquid diet for 48 hours and advance slowly follow-up with primary care if worsens may need to be evaluated for endoscopy Medical Records I reviewed the patient's medical records. Lab Data I reviewed the patient's lab results. : 04/16/21 11:17 04/16/21 11:17 Radiology Impressions Abdomen/Pelvis CT 04/16/21 11:20 IMPRESSION: 1. Findings are most suggestive of duodenitis. 2. Punctate nonobstructing left lower pole renal calculus. Laboratory Results WBC 10.1 10^3/uL (4.0-10.0) H 04/16/21 11:17 RBC 5.19 10^6/uL (4.1-5.3) 04/16/21 11:17 Hgb 15.3 g/dL (11.7-16.6) 04/16/21 11:17 Hct 46.9 % (42.0-52.0) 04/16/21 11:17 MCV 90.4 fl (80-94) 04/16/21 11:17 MCH 29.5 pg (28.0-34.0) 04/16/21 11:17 MCHC 32.6 g/dL (30.0-36.0) 04/16/21 11:17 RDW 12.3 % (12.1-15.1) 04/16/21 11:17 Plt Count 299 10^3/cmm (130-400) 04/16/21 11:17 MPV 9.3 fL (7.4-10.4) 04/16/21 11:17 Neut % (Auto) 72.3 % 04/16/21 11:17 Lymph % (Auto) 18.3 % 04/16/21 11:17 [place] % (Auto) 6.0 % 04/16/21 11:17 Eos % (Auto) 2.5 % 04/16/21 11:17 Baso % (Auto) 0.6 % 04/16/21 11:17 Neut # (Auto) 7.28 10^3/uL (1.8-7.7) 04/16/21 11:17 Lymph # (Auto) 1.8 10^3/uL (0.8-4.8) 04/16/21 11:17 [place] # (Auto) 0.6 10^3/uL (0.2-0.9) 04/16/21 11:17 Eos # (Auto) 0.3 10^3/uL (0.0-0.8) 04/16/21 11:17 Baso # (Auto) 0.1 10^3/uL (0.0-0.1) 04/16/21 11:17 Nucleated RBC % (auto) 0 % 04/16/21 11:17 Nucleated RBCs # 0.0 /100WBC 04/16/21 11:17 Sodium 136 mmol/L (136-145) 04/16/21 11:17 Potassium 4.0 mmol/L (3.5-5.1) 04/16/21 11:17 Chloride 100 mmol/L (98-107) 04/16/21 11:17 Carbon Dioxide 26 mmol/L (22-29) 04/16/21 11:17 Anion Gap 14.0 (5-19) 04/16/21 11:17 BUN 17 mg/dL (6-20) 04/16/21 11:17 Creatinine 0.9 mg/dL (0.7-1.2) 04/16/21 11:17 GFR Calculation 86.7 mL/min (90-130) L 04/16/21 11:17 Glucose 169 mg/dL (65-115) H 04/16/21 11:17 Calculated Osmolality 287 mOsm/kg (285-295) 04/16/21 11:17 Calcium 9.1 mg/dL (8.5-10.5) 04/16/21 11:17 Total Bilirubin 0.8 mg/dL (0.15-1.2) 04/16/21 11:17 Direct Bilirubin 0.20 mg/dL (0.00-0.30) 04/16/21 11:17 AST 59 U/L (0-40) H 04/16/21 11:17 ALT 189 U/L (0-41) H 04/16/21 11:17 Alkaline Phosphatase 355 IU/L (40-130) H 04/16/21 11:17 Total Protein 7.7 g/dL (6.6-8.7) 04/16/21 11:17 Albumin 4.2 g/dL (3.5-5.2) 04/16/21 11:17 Globulin 3.5 g/dL (1.3-4.6) 04/16/21 11:17 Urine Color Dark yellow (Yellow) 04/16/21 11:23 Urine Appearance Clear (CLEAR) 04/16/21 11:23 Urine pH 5 (5-7) 04/16/21 11:23 Ur Specific [place] 1.025 (1.005-1.030) 04/16/21 11:23 Urine Protein Neg (Negative) 04/16/21 11:23 Urine Glucose (UA) Norm (Normal) 04/16/21 11:23 Urine Ketones Negative (Negative) 04/16/21 11:23 Urine Blood Neg (Negative) 04/16/21 11:23 Urine Nitrate Negative (Negative) 04/16/21 11:23 Urine Bilirubin 1+ (Negative) H 04/16/21 11:23 Urine Urobilinogen 4 mg/dL (Negative) H 04/16/21 11:23 Ur Leukocyte Esterase Negative (Negative) 04/16/21 11:23 Discharge Plan Discharge Patient Disposition: Home Clinical Impression: Dyspepsia Condition: Stable Prescriptions: New Carafate 1 gram tablet 1 g PO Q6H 28 Days Qty: 112 0RF Protonix 40 mg tablet,delayed release (DR/EC) 40 mg PO BID 14 Days Qty: 28 0RF Discharge Orders: Discharge ED (Routine); Ordered 04/16/21 Ordered By: Ramin Armando Discharge Diet: Full LIquid Discharge Activity: Resume usual activity Patient Instructions: Opioid Safety Activity Restrictions/Additional Instructions: Follow-up with your primary care doctor. Coding Level of Care Code ED Fabrication Machine Operator for Doc Fwd Exam Comprehensive
--- NOTE | 2021-04-16 11:20 | CTR_ITS ---
PROCEDURE INFORMATION: Exam: CT Abdomen And Pelvis Without Contrast Exam date and time: 04/16/2021 11:20 AM Age: 56 years old Clinical indication: Abdominal pain; Other: Bilateral flank pain TECHNIQUE: Imaging protocol: Computed tomography of the abdomen and pelvis without contrast. Radiation optimization: All CT scans at this facility use at least one of these dose optimization techniques: automated exposure control; mA and/or kV adjustment per patient size (includes targeted exams where dose is matched to clinical indication); or iterative reconstruction. COMPARISON: CT abdomen pelvis w con* [id number] 11/04/2020 5:35 AM RADIATION DOSE METRICS: Total DLP (mGy-cm): 943.28 FINDINGS: Lungs: Calcified granulomas in the lung bases bilaterally. Liver: Calcified hepatic granulomas. Gallbladder and bile ducts: Normal. No calcified stones. No ductal dilation. Pancreas: Normal. No ductal dilation. Spleen: Calcified splenic granulomas. Adrenal glands: Normal. No mass. Kidneys and ureters: Punctate nonobstructing left lower pole renal calculus. No hydronephrosis. Stomach and bowel: There is mild mural thickening with surrounding edema involving the 3rd and 4th portions of the duodenum. No bowel obstruction. Appendix: No evidence of appendicitis. Intraperitoneal space: There is mild inflammatory stranding within the anterior pararenal space with some thickening of the peritoneal lining. Vasculature: Mild burden of atherosclerotic plaque in the abdominal aorta and branch vessels. No aneurysm. Lymph nodes: Unremarkable. No enlarged lymph nodes. Urinary bladder: Unremarkable as visualized. Reproductive: Unremarkable as visualized. Bones/joints: Unremarkable. No acute fracture. Soft tissues: Similar chronic ovoid low-density lesion in the right lower quadrant measuring up to 3.7 cm, which may reflect sequela of prior right inguinal hernia repair. CT/CT kidney stone [id number] IMPRESSION: 1. Findings are most suggestive of duodenitis. 2. Punctate nonobstructing left lower pole renal calculus.
[2021-04-16 11:23] LABS: Basophils # 0.1 10^3/uL (0.0-0.1); Basophils % 0.6 %; Eosinophils # 0.3 10^3/uL (0.0-0.8); Eosinophils % 2.5 %; Hematocrit 46.9 % (42.0-52.0); Hemoglobin 15.3 g/dL (11.7-16.6); Lymphocytes # 1.8 10^3/uL (0.8-4.8); Lymphocytes % 18.3 %; Mean Corpuscular HGB Conc 32.6 g/dL (30.0-36.0); Mean Corpuscular Hemoglobin 29.5 pg (28.0-34.0); Mean Corpuscular Volume 90.4 fl (80-94); Mean Platelet Volume 9.3 fL (7.4-10.4); Monocytes # 0.6 10^3/uL (0.2-0.9); Neutrophils # 7.28 10^3/uL (1.8-7.7); Neutrophils % 72.3 %; Nucleated Red Blood Cells % 0 %; Platelet Count 299 10^3/cmm (130-400); Red Blood Count 5.19 10^6/uL (4.1-5.3); Red Cell Distribution Width 12.3 % (12.1-15.1); White Blood Count 10.1 10^3/uL (4.0-10.0)
[2021-04-16] MEDS: lactated ringers 1,000 ML 999 ML IV (11:32)
[2021-04-16 11:34] LABS: Add Urine Microscopic? NO; Charge for UA Resulting for Rev
[2021-04-16 11:35] VITALS: RESP 16
[2021-04-16] MEDS: ondansetron 2 mg/ML SDV 2 mL 4 MG IVP (11:35)
[2021-04-16] MEDS: morphine 4 mg/mL SDV 1 mL IVP (11:35)
[2021-04-16 11:41] LABS: Bilirubin Urine 1+ (Negative); Blood Urine Neg (Negative); Glucose Urine UA Norm (Normal); Ketones Urine Negative (Negative); Nitrate Urine Negative (Negative); Protein Urine Neg (Negative); Specific Gravity, Urine 1.025 (1.005-1.030); Urine Appearance Clear (CLEAR); Urine Color Dark Yellow (Yellow); pH Urine 5 (5-7)
[2021-04-16 12:10] LABS: Blood Urea Nitrogen 17 mg/dL (6-20); Calcium 9.1 mg/dL (8.5-10.5); Carbon Dioxide 26 mmol/L (22-29); Chloride 100 mmol/L (98-107); Glomerular Filtration Rate 86.7 mL/min (90-130); Glucose 169 mg/dL (65-115); Osmolality Calculated 287 mOsm/kg (285-295); Sodium 136 mmol/L (136-145)
[2021-04-16 13:07] LABS: Leukocyte Esterase Urine Negative (Negative); Urobilinogen Urine 4 mg/dL (Negative)
[2021-04-16 13:13] VITALS: BP 115/73; PULSE 68; RESP 13; O2SAT 95
[2021-04-16 13:51] LABS: Alanine Aminotransferase 189 U/L (0-41); Albumin Level 4.2 g/dL (3.5-5.2); Alkaline Phosphatase 355 IU/L (40-130); Aspartate Amino Transferase 59 U/L (0-40); Globulin 3.5 g/dL (1.3-4.6); Total Bilirubin 0.8 mg/dL (0.15-1.2); Total Protein 7.7 g/dL (6.6-8.7)
[2021-04-16 14:23] VITALS: BP 115/73; PULSE 84; RESP 16; O2SAT 98
== END 2021-04-16 14:20 | disposition home or self-care (01) ==
PROVIDERS: Emergency Provider Family Medicine
DX: R10.13 Epigastric pain (principal); F17.210 Nicotine dependence, cigarettes, uncomplicated
CPT/HCPCS: 74176; 80048; 80076; 81003; 85025; 96361; 96374; 96375; 99284; J2270; J2405

== ENCOUNTER 2021-09-19 14:20 | Inpatient (IN) | payer SELFPAY ==
[2021-09-19] VITALS (19 sets, daily range): BP systolic 130–179; BP diastolic 61–135; PULSE 64–104; RESP 11–26; TEMP 36.6; O2SAT 90–97; BMI 28.1
--- NOTE | 2021-09-19 14:25 | XRR_ITS ---
PROCEDURE INFORMATION: Exam: XR Chest Exam date and time: 09/19/2021 2:31 PM Age: 56 years old Clinical indication: Cough and dyspnea; Additional info: Dyspnea/cough TECHNIQUE: Imaging protocol: Radiologic exam of the chest. Views: 1 view. COMPARISON: CT Chest/Abdomen/Pelvis w IV* 11/09/2018 10:53 PM FINDINGS: Lungs: Unremarkable. No consolidation. Pleural spaces: Unremarkable. No pleural effusion. No pneumothorax. Heart/Mediastinum: Unremarkable. No cardiomegaly. Bones/joints: Unremarkable. XR/XR chest 1V portable [id number] IMPRESSION: No acute findings.
--- NOTE | 2021-09-19 14:30 | ECG_ITS ---
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 Measurements Intervals [place] Rate: 71 P: 6 CA: 152 QRS: 40 QRSD: 89 T: 76 QT: 389 QTc: 425 Interpretive Statements SINUS RHYTHM NONSPECIFIC T-WAVE ABNORMALITY Compared to ECG 11/09/2018 22:38:14 T-wave abnormality now present Myocardial infarct finding no longer present Electronically Signed On 09-20-2021 7:08:49 CDT by Eze Vincent M.D. [id number]
[2021-09-19] MEDS: aspirin 81 mg Chew Tablet 324 MG PO (14:34)
--- NOTE | 2021-09-19 14:36 | ED_ITS ---
HPI - Chest Pain General: Chief Complaint: ER Hold Stated Complaint: CHEST PAIN Time Seen by Provider: 09/19/21 14:23 Source: patient Mode of arrival: ambulatory Limitations: no limitations History of Present Illness: 56-year-old male presents emergency room with complaint of chest pain. When asked what makes it better or worse he states sex makes it worse. He states has been having this for over a week. Left-sided chest pain time radiates into the left arm. He had chest pain when EMS first arrived they did give him aspirin and nitro. He states chest pain is pretty much resolved completely by the time he arrived here. He has not previously had angiography or stress testing he thinks he may have had an echo several years ago he is otherwise in no known history of heart disease patient does smoke and is not diabetic. He is not currently having any chest pain at this time. MD complaint: chest pain Onset (ago): day(s) Timing of current episode: episodic Onset: during exertion Pain location: left chest Pain radiation: left arm Severity: moderate Quality: tightness and heaviness Relieving factors: nitroglycerin Associated symptoms: Deny abdominal pain, diaphoresis, dyspnea, fever(s), leg edema, nausea, palpitations, sense of impending doom, syncope or vomiting Treatment prior to arrival: aspirin and nitroglycerin Review of Systems Const: Denies: fever(s), chills, fatigue, malaise or diaphoresis ENMT: Denies: throat pain, ear or mastoid pain, nasal discharge or nasal co ngestion Card: Reports: chest pain; Denies: palpitations or syncope Resp: Denies: dyspnea GI: Denies: abdominal pain, nausea or vomiting : Denies: flank pain, difficulty urinating, dysuria, urinary frequency or urinary urgency Skin/Breast: Denies: rash or pruritus PFSH ED PFSH: Medical History Abnormal echocardiogram Benign essential hypertension with target blood pressure below 140/90 Dyslipidemia NSTEMI (non-ST elevated myocardial infarction) Tobacco dependency Two-vessel coronary artery disease Surgical History History of hemorrhoidectomy History of hernia repair Family History Other Cancer Social History Smoking and tobacco status: current every day smoker Alcohol intake: former Physical Exam Const: GENERAL APPEARANCE: cooperative and comfortable ORIENTATION/CONSCIOUSNESS: Yes awake, Yes oriented to person, Yes oriented to place and Yes oriented to time HENMT: COMMON NORMALS: normocephalic, atraumatic, hearing grossly normal bilaterally, external ears normal, EAC's normal, TM's normal bilaterally, Normal nasal mucous membranes and turbinates present, moist oral mucous membranes and oropharynx normal HEAD & SCALP: normocephalic and atraumatic NOSE: Normal nasal mucous membranes and turbinates present EXTERNAL EAR: Yes external ears normal EXTERNAL AUDITORY CANAL: EAC's normal TYMPANIC MEMBRANE: TM's normal bilaterally Eye: COMMON NORMALS: Equal, round and reactive pupils present, EOMs intact bilaterally, conjunctivae normal and no scleral icterus CONJUNCTIVA: Yes conjunctivae normal PUPIL: Yes Equal, round and reactive pupils present Neck/C-Spine: COMMON NORMALS: full ROM, no lymphadenopathy, supple and no JVD Lymph: LYMPHATIC: no lymphadenopathy noted and no lymphedema noted Resp: COMMON NORMALS: normal respiratory effort, No retractions, No use of accessory muscles and clear to auscultation bilaterally AUSCULTATION: clear to auscultation bilaterally Cardio: COMMON NORMALS: no JVD, regular rate, regular rhythm and No murmurs present (Cardio) RATE: regular rate RHYTHM: regular rhythm GI: COMMON NORMALS: Soft to palpation and No hepatosplenomegaly present AUSCULTATION: Yes normoactive bowel sounds PALPATION: Yes Soft to palpation, No Tenderness to palpation present (GI), No Guarding due to palpation present (GI) and Yes No hepatosplenomegaly present Extremity: COMMON NORMALS: normal to inspection, capillary refill normal, no clubbing, cyanosis or edema, no calf tenderness and no pedal edema Neuro: SENSORIUM/ORIENTATION: Yes oriented to person, Yes oriented to place and Yes oriented to time Skin: COMMON NORMALS: no rashes or lesions noted GENERAL SKIN EXAM: no rashes or lesions noted Course Vital Signs: Vital signs: Vital Signs Temperature 98 F 09/21/21 16:06 Pulse Rate 75 09/21/21 16:06 Respiratory Rate 15 09/21/21 16:06 Blood Pressure 137/83 08/03/22 16:06 Pulse Oximetry 95 09/21/21 16:06 Oxygen Delivery Me thod 09/20/21 19:30 Oxygen Flow Rate 4 09/19/21 16:30 MDM - Chest Pain Medical Decision Making Labs imaging and EKG reviewed. Discussed with patient. Hot discussed with hospitalist orders written ops for atypical chest pain with risk factors Medical Records I reviewed the patient's medical records. Lab Data I reviewed the patient's lab results. : 09/21/21 05:30 09/21/21 05:30 Radiology Impressions Chest X-Ray 09/19/21 14:25 IMPRESSION: No acute findings. Chest CTA 09/19/21 16:31 IMPRESSION: 1. No evidence of pulmonary embolism or other acute abnormality. 2. Old granulomatous disease. Laboratory Results WBC 8.4 10^3/uL (4.0-10.0) 09/19/21 14:30 RBC 5.12 10^6/uL (4.1-5.3) 09/19/21 14:30 Hgb 15.2 g/dL (11.7-16.6) 09/19/21 14:30 Hct 44.8 % (42.0-52.0) 09/19/21 14:30 MCV 87.5 fl (80-94) 09/19/21 14:30 MCH 29.7 pg (28.0-34.0) 09/19/21 14:30 MCHC 33.9 g/dL (30.0-36.0) 09/19/21 14:30 RDW 12.6 % (12.1-15.1) 09/19/21 14:30 Plt Count 301 10^3/cmm (130-400) 09/19/21 14:30 MPV 9.4 fL (7.4-10.4) 09/19/21 14:30 Neut % (Auto) 59.5 % 09/19/21 14:30 Lymph % (Auto) 27.1 % 09/19/21 14:30 [place] % (Auto) 9.5 % 09/19/21 14:30 Eos % (Auto) 3.0 % 09/19/21 14:30 Baso % (Auto) 0.7 % 09/19/21 14:30 Neut # (Auto) 5.00 10^3/uL (1.8-7.7) 09/19/21 14:30 Lymph # (Auto) 2.3 10^3/uL (0.8-4.8) 09/19/21 14:30 [place] # (Auto) 0.8 10^3/uL (0.2-0.9) 09/19/21 14:30 Eos # (Auto) 0.3 10^3/uL (0.0-0.8) 09/19/21 14:30 Baso # (Auto) 0.1 10^3/uL (0.0-0.1) 09/19/21 14:30 Nucleated RBC % (auto) 0 % 09/19/21 14:30 Nucleated RBCs # 0.0 /100WBC 09/19/21 14:30 Sodium 142 mmol/L (136-145) 09/19/21 14:30 Potassium 3.9 mmol/L (3.5-5.1) 09/19/21 14:30 Chloride 106 mmol/L (98-107) 09/19/21 14:30 Carbon Dioxide 22 mmol/L (22-29) 09/19/21 14:30 Anion Gap 17.9 (5-19) 09/19/21 14:30 BUN 14 mg/dL (6-20) 09/19/21 14:30 Creatinine 0.6 mg/dL (0.7-1.2) L 09/19/21 14:30 GFR Calculation 138.4 mL/min (90-130) H 09/19/21 14:30 Glucose 114 mg/dL (65-115) 09/19/21 14:30 Calculated Osmolality 295 mOsm/kg (285-295) 09/19/21 14:30 Calcium 9.2 mg/dL (8.5-10.5) 09/19/21 14:30 Total Bilirubin 0.5 mg/dL (0.15-1.2) 09/19/21 14:30 AST 18 U/L (0-40) 09/19/21 14:30 ALT 33 U/L (0-41) 09/19/21 14:30 Alkaline Phosphatase 122 IU/L (40-130) 09/19/21 14:30 Troponin T Baseline 17 ng/L (0-15) H 09/19/21 14:30 Troponin T 120 Minute 56.16 ng/L (0-15) H 09/19/21 16:58 Delta Troponin T 39.16 ABS# (0-10) H* 09/19/21 16:58 Total Protein 7.4 g/dL (6.6-8.7) 09/19/21 14:30 Albumin 4.1 g/dL (3.5-5.2) 09/19/21 14:30 Globulin 3.3 g/dL (1.3-4.6) 09/19/21 14:30 Discharge Plan Discharge Patient Disposition: Admitted As Inpatient Admit Provider: Jose J Nj Clinical Impression: Atypical chest pain Condition: Stable Coding Level of Care Code ED Crew Mess Attendant for Doc Fwd Exam Comprehensive
[2021-09-19 14:39] LABS: Basophils # 0.1 10^3/uL (0.0-0.1); Basophils % 0.7 %; Eosinophils # 0.3 10^3/uL (0.0-0.8); Hematocrit 44.8 % (42.0-52.0); Hemoglobin 15.2 g/dL (11.7-16.6); Lymphocytes # 2.3 10^3/uL (0.8-4.8); Lymphocytes % 27.1 %; Mean Corpuscular HGB Conc 33.9 g/dL (30.0-36.0); Mean Corpuscular Hemoglobin 29.7 pg (28.0-34.0); Mean Corpuscular Volume 87.5 fl (80-94); Mean Platelet Volume 9.4 fL (7.4-10.4); Monocytes # 0.8 10^3/uL (0.2-0.9); Monocytes % 9.5 %; Neutrophils % 59.5 %; Nucleated Red Blood Cells % 0 %; Platelet Count 301 10^3/cmm (130-400); Red Blood Count 5.12 10^6/uL (4.1-5.3); Red Cell Distribution Width 12.6 % (12.1-15.1); White Blood Count 8.4 10^3/uL (4.0-10.0)
--- NOTE | 2021-09-19 14:56 | PC.PHAR ---
PT STATE HE TAKES NO RX OR OTC MEDICATIONS-NO MEDS PULL UP ON EXT MED HISTORY
[2021-09-19 15:40] LABS: Alanine Aminotransferase 33 U/L (0-41); Albumin Level 4.1 g/dL (3.5-5.2); Alkaline Phosphatase 122 IU/L (40-130); Anion Gap 17.9 (5-19); Aspartate Amino Transferase 18 U/L (0-40); Blood Urea Nitrogen 14 mg/dL (6-20); Calcium 9.2 mg/dL (8.5-10.5); Carbon Dioxide 22 mmol/L (22-29); Chloride 106 mmol/L (98-107); Globulin 3.3 g/dL (1.3-4.6); Glomerular Filtration Rate 138.4 mL/min (90-130); Glucose 114 mg/dL (65-115); Osmolality Calculated 295 mOsm/kg (285-295); Potassium 3.9 mmol/L (3.5-5.1); Sodium 142 mmol/L (136-145); Total Bilirubin 0.5 mg/dL (0.15-1.2); Total Protein 7.4 g/dL (6.6-8.7)
[2021-09-19 15:48] LABS: Troponin(5th) Baseline 17 ng/L (0-15)
--- NOTE | 2021-09-19 16:03 | ECG_ITS ---
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 Measurements Intervals [place] Rate: 89 P: 51 [place]: 156 QRS: 69 QRSD: 92 T: 81 QT: 336 QTc: 410 Interpretive Statements SINUS RHYTHM MODERATE ST DEPRESSION [0.05+ mV ST DEPRESSION] Compared to ECG 09/19/2021 14:30:31 ST (T wave) deviation now present T-wave abnormality no longer present Electronically Signed On 09-20-2021 21:22:32 CDT by Rolo Cohen M.D. [id number] melody
[2021-09-19] MEDS: morphine 4 mg/mL SDV 1 mL IVP (16:29)
[2021-09-19] MEDS: ondansetron 2 mg/ML SDV 2 mL 4 MG IVP (16:29)
[2021-09-19] MEDS: LORazepam 2 mg Tablet PO (16:29)
--- NOTE | 2021-09-19 16:31 | CTR_ITS ---
PROCEDURE INFORMATION: Exam: CTA Chest With Contrast Exam date and time: 09/19/2021 7:27 PM Age: 56 years old Clinical indication: Chest wall pain; Additional info: Chest pain TECHNIQUE: Imaging protocol: Computed tomographic angiography of the chest with contrast. 3D rendering (Not supervised by radiologist): MIP and/or 3D reconstructed images were created by the technologist. Radiation optimization: All CT scans at this facility use at least one of these dose optimization techniques: automated exposure control; mA and/or kV adjustment per patient size (includes targeted exams where dose is matched to clinical indication); or iterative reconstruction. Contrast material: OMNIPAQUE 350; Contrast volume: 95 ml; Contrast route: INTRAVENOUS (IV); COMPARISON: CT Chest/Abdomen/Pelvis w IV* 11/09/2018 10:53 PM RADIATION DOSE METRICS: Total DLP (mGy-cm): 357.93 FINDINGS: Pulmonary arteries: No evidence of pulmonary embolism to the subsegmental level. Main pulmonary artery normal in caliber. Aorta: Unremarkable. No aortic aneurysm. No aortic dissection. Lungs: Bibasilar atelectasis/scarring. No focal consolidation. Subcentimeter calcified granulomas throughout the lungs. Airways normal in caliber and patent. Pleural spaces: Unremarkable. No pneumothorax. No pleural effusion. Heart: No cardiomegaly. Mild coronary artery calcifications. No pericardial effusion. Lymph nodes: Calcified granulomatous nodes throughout the mediastinum and sarah beth. Spleen: Calcified granulomas throughout the spleen. Bones/joints: No acute or aggressive osseous lesion. Soft tissues: Unremarkable. CT/CT angio chest PE protcl [id number] IMPRESSION: 1. No evidence of pulmonary embolism or other acute abnormality. 2. Old granulomatous disease.
[2021-09-19] MEDS: nitroglycerin drip 50 MG/250 ML PREMIX IV (16:33)
[2021-09-19 18:05] LABS: Troponin 5 2HR 56.16 ng/L (0-15)
[2021-09-19 18:15] LABS: Troponin 5 2HR Delta 39.16 ABS# (0-10)
--- NOTE | 2021-09-19 18:30 | USCV_ITS ---
Javid Mata Age: 56 Gender: M : 1965 Exam Date: 09/19/2021 20:20 Ordering Phys: Jose J Nj MD Technologist: KIM Exam Location: [facility] [place] Indication: chest pain. No history of cardiac intervention per patient. BP: 140 / 81 HR: 94 Rhythm: Sinus Technical Quality: Adequate MEASUREMENTS (Male / Female) Normal Values 2D ECHO LV Diastolic Diameter PLAX 4.0 cm 4.2 - 5.9 / 3.9 - 5.3 cm LV Systolic Diameter PLAX 2.5 cm IVS Diastolic Thickness 0.9 cm 0.6 - 1.0 / 0.6 - 0.9 cm IVS Systolic Thickness 1.4 cm LVPW Diastolic Thickness 1.0 cm 0.6 - 1.0 / 0.6 - 0.9 cm LVPW Systolic Thickness 1.3 cm LVOT Diameter 2.0 cm LV Ejection Fraction 2D Teich 66.0 % LV Ejection Fraction MOD 2C 72.0 % LV Ejection Fraction 2C AL 71.9 % LA Diameter 3.6 cm LA Width 4.1 cm LA Height 4.5 cm RA Width 3.2 cm RA Height 4.2 cm Aorta at Sinotubular Diameter 3.2 cm IVC Diameter 1.4 cm M-MODE Aortic Annulus Diameter 3.6 cm LA Ao Ratio MM 1.1 MV E Point Septal Separation 0.4 cm DOPPLER AV Peak Velocity 100.0 cm/s LVOT Peak Velocity 80.0 cm/s AV Area Cont Eq vti 2.7 cm squared AV Area Cont Eq pk 2.6 cm squared MV Area PHT 3.1 cm squared Mitral E to A Ratio 0.8 MV E' Velocity 47.5 cm/s Mitral E to MV E' Ratio 10.7 Mitral E to LV E' Lateral Ratio 10.4 Mitral E to LV E' Septal Ratio 10.9 TR Peak Velocity 207.3 cm/s TR Peak Gradient 17.2 mmHg TV Peak E Velocity 79.0 cm/s Right Atrial Pressure 5.0 mmHg Pulmonary Artery Systolic Pressu 22.2 mmHg PV Peak Velocity 93.0 cm/s RV Acceleration Time 0.1 s RV Ejection Time 0.3 s RV AcT/ET 0.2 FINDINGS Left Ventricle Normal LV size with borderline low ejection fraction 50 to 55%. Mild diffuse hypokinesia of the mid and apical septum, anteroseptum and the LV apex.Grade I/IV diastolic dysfunction (abnormal relaxation filling pattern), normal to mildly elevated filling pressures. Right Ventricle The right ventricle is normal in size and function. Right Atrium The right atrium is normal in size. Left Atrium The left atrium is normal in size. Mitral Valve No gross abnormalities noted Aortic Valve Minimally thickened aortic valve Tricuspid Valve Trace tricuspid valve regurgitation. Pulmonic Valve Pulmonic valve not well visualized. Pericardium Normal pericardium without effusion. Aorta Normal ascending aorta dimension. IVC The inferior vena cava pulmonary and hepatic veins appear normal. CONCLUSIONS Normal LV size with borderline low ejection fraction 50 to 55%. Mild diffuse hypokinesia of the mid and apical septum, anteroseptum and the LV apex.Grade I/IV diastolic dysfunction (abnormal relaxation filling pattern), normal to mildly elevated filling pressures. Trace tricuspid valve regurgitation. Minimally thickened aortic valve. There is no pericardial effusion. There are no intracardiac masses. No similar previous studies are available for comparison Dr Rolo Cohen MD FACC (Electronically Signed) Final Date: 20 September 2021 09:49 S
--- NOTE | 2021-09-19 18:33 | P.HP_ITS ---
Providers/Chief Complaint Chief Complaint: CHEST PAIN History of Present Illness Javid Mata is a 56 year old male with no significant past medical history, except for extensive smoking history smokes a pack a day and 2 days, has been smoking since he was 12 years of age, came in with chief complaint of substernal chest pain radiating to LT arms , described as burning sensations, worse with any form of exertion, relieved with rest ,started 4 days back, accompanied with tingling in both the hands Currently denies any, shortness of breath fever cough, nausea, vomiting palpitation dizziness, sweating. Upon arrival in the ER he was worked up for above-mentioned complaint: Pertinent imaging studies: X-ray chest: No acute finding CTA chest: EKG: Sinus rhythm nonspecific T wave abnormality. Pertinent labs: WBC 8.4, H&H:15/44 , PLT : 301, serum sodium 142 serum potassium 3.9, BUN and serum creatinine 14 and 0.6 , AST ALT alk phos normal Troponin: 17-56 Review of Systems General: Reports: 10 or more systems reviewed and unremarkable except in HPI and below Const: Denies: fever(s), chills, body aches, change in appetite or diaphoresis Card: Denies: palpitations, edema, swelling of feet/ankles, dyspnea on exertion, orthopnea or leg pain with exertion Resp: Denies: dyspnea, productive cough, wheezing or pain on inspiration GI: Denies: abdominal pain, nausea, vomiting, diarrhea or constipation : Denies: flank pain or difficulty urinating Musc: Denies: back pain, extremity pain or extremity swelling Neuro: Denies: headache(s), difficulty walking or confusion Medications/Allergies Home Medications Medication Instructions Recorded Confirmed Last Taken Type No Known Home Medications 09/19/21 09/19/21 Unknown History Allergies Allergy/AdvReac Type Severity Reaction Status Date / Time No Known Allergies Allergy Verified 09/19/21 14:57 PFSH Acute PFSH: Medical History Tobacco dependency Surgical History History of hemorrhoidectomy History of hernia repair Family History Other Cancer Social History Smoking and tobacco status: current every day smoker Alcohol intake: former Vitals/I&O/Wt Last Vital Signs Temp 97.9 F 09/19/21 14:59 Pulse 94 09/19/21 18:15 Resp 22 H 09/19/21 18:15 BP 140/81 09/19/21 18:15 Pulse Ox 92 09/19/21 18:15 O2 Del Method 09/19/21 16:30 O2 Flow Rate 4 09/19/21 16:30 Weight last 48 hrs Weight 83.915 kg Physical Exam Const: COMMON NORMALS: patient oriented x3 HENMT: COMMON NORMALS: normocephalic, atraumatic, hearing grossly normal bilaterally and external ears normal Resp: COMMON NORMALS: normal respiratory effort, No retractions, No use of accessory muscles and clear to auscultation bilaterally EFFORT & INSPECTION: Yes symmetric chest movement AUSCULTATION: clear to auscultation bilaterally Cardio: COMMON NORMALS: regular rate, regular rhythm, S1 normal heart sound present, S2 normal heart sound present, No gallops present (Cardio), No murmurs present (Cardio), No rub (Cardio) and Peripheral pulses 2+ throughout RATE: regular rate RHYTHM: regular rhythm HEART SOUNDS: S1 normal heart sound present and S2 normal heart sound present PERIPHERAL PULSES: Peripheral pulses 2+ throughout GI: COMMON NORMALS: Normal to inspection, nondistended, normoactive bowel sounds present, Soft to palpation, non-tender, No hepatosplenomegaly present and no masses AUSCULTATION: Yes normoactive bowel sounds PALPATION: Yes Soft to palpation and Yes No hepatosplenomegaly present RECTAL EXAM: Yes deferred Extremity: COMMON NORMALS: no clubbing, cyanosis or edema and no pedal edema Neuro: COMMON NORMALS: patient oriented x3 Data : 09/19/21 14:30 09/19/21 14:30 A&P Assessment and plan (1) NSTEMI (non-ST elevated myocardial infarction): Status: Acute (2) Tobacco dependency: Status: Acute Plan 56 year old male with no significant past medical history, except for extensive smoking history smokes a pack a day and 2 days, has been smoking since he was 12 years of age, came in with chief complaint of substernal chest pain radiating to LT arms , described as burning sensations, worse with any form of exertion, relieved with rest ,started 4 days back, accompanied with tingling in both the hands. Assessment: NSTEMI Chest pain Tobacco use Plan: Follow CTA chest: 2D echo We will place him on ACS protocol (aspirin statin beta-tremaine, Nitropaste, sublingual nitro as needed, therapeutic anticoagulation, on nitro drip ) Cardiology on board CODE STATUS: Full code DVT prophylaxis: Not needed on therapeutic anticoagulation Attestations Medical Necessity Statement*: Patient is to be in hospital for management of NSTEMI. Anticipated length of stay greater than 2 midnights. Time Spent in Patient Care: Greater than 35 minutes (>than 50% of time spent in counselling and/or direct pt care on unit) . Coding Level of Care Code Acute Protector Plate Attacher for Alej[facility] Fwd Exam Detailed Diagnoses NSTEMI (non-ST elevated myocardial infarction) I21.4 Tobacco dependency F17.200
[2021-09-19] MEDS: iohexol 350 mg/mL 100 mL Btl IV (19:44)
--- NOTE | 2021-09-19 20:13 | P.CONIM_ITS ---
Providers/Reason For Consult Consulting Physician/Specialty*: TRAM Cohen MD/cardiology Reason for Consult*: Patient with chest pain and elevated troponin T Requesting Physician: Dr. Nj Attending Physician: Dr. Nj History of Present Illness History of Present Illness Javid Mata is a 56 year old male with a history of hypertension and smoking abuse, presented to the emergency room with complaints of chest pain/arm pain and generalized weakness for the last 4 days. He was further elevated troponin T with a significant delta at 2 hours. Cardiology consult is requested for further cardiac evaluation recommendations. The patient has a longstanding history of hypertension but never been treated. He was seen this [facility] up until 4 days ago when he started having a burning sensation in the chest radiating across the chest and to both arms associate with some's shortness of breath and nausea. Denies any of the pain was anywhere from 6-10 over 10. Each of these episodes may last May from 5 to 10 minutes and then gradually subsides. The intensity and the duration of these episodes were getting worse. Today he had 7-8 episodes of pain. Emotio nal stress, sexual activity or other physical activity brings on the symptoms. He also has feeling heavy in both arms. No fever or chills. No cough. No other associated symptoms. He was diagnosed with high blood pressure 10 years or so. But he never been treated. Cortisol status is not known. He smokes half pack a day for the last more than 30 years. No alcohol abuse or any other substance abuse. He has no primary care provider. No previous history for any coronary artery disease, myocardial infarction or congestive heart failure. Review of Systems Narrative: CONSTITUTIONAL: No fever or chills. EYES: No blurring of vision or other visual disturbances lately. ENT: No hoarseness of voice, auditory disturbances or sore throat. CARDIOVASCULAR: As mentioned above. RESPIRATORY: Has some shortness of breath with activities GASTROINTESTINAL: Nausea as mentioned above GENITOURINARY: No dysuria or hematuria. INTEGUMENTARY: No skin rashes or history of skin cancer. NEURO: No transient ischemic attacks or amaurosis. PSYCHIATRIC: No history of psychosis or major depression. HEMATOLOGIC: No bleeding disorders or significant anemia. ENDOCRINE: No history of polyuria or polydipsia. MUSCULOSKELETAL: No recent joint pain or swelling. ALLERGY/IMMUNOLOGY: As mentioned above. Medications/Allergies Home Medications Medication Instructions Recorded Confirmed Last Taken Type No Known Home Medications 09/19/21 09/19/21 Unknown History Allergies Allergy/AdvReac Type Severity Reaction Status Date / Time No Known Allergies Allergy Verified 09/19/21 14:57 Current Medications Generic Name Dose Route Start Last Admin Trade Name Hugo PRN Reason Stop Dose Admin Nitroglycerin/Dextrose 50 mg in 250 mls @ 0 mls/hr 09/19/21 16:30 09/19/21 16:33 Nitroglycerin Drip IV 5 mcg/min .Q0M MONIK 1.5 mls/hr Administration Protocol Per Protocol PFSH Acute PFSH: Medical History Tobacco dependency Surgical History History of hemorrhoidectomy History of hernia repair Family History Other Cancer Social History Smoking and tobacco status: current every day smoker Alcohol intake: former Vitals/I&O/Wt Last Vital Signs Temp 97.9 F 09/19/21 14:59 Pulse 80 09/19/21 18:45 Resp 12 09/19/21 18:45 BP 130/61 09/19/21 18:45 Pulse Ox 94 09/19/21 18:45 O2 Del Method 09/19/21 16:30 O2 Flow Rate 4 09/19/21 16:30 Weight last 48 hrs Weight 185 lb Physical Exam Narrative: GENERAL: The patient is alert and oriented times three. Not in any acute distress. HEENT: No significant pallor, icterus or lymphadenopathy.Oral cavity: There are no mucous membrane lesions. Funduscopic examination: Fundus is not visualized. The pupils are symmetrical NECK: Trachea appears to be central. No masses noted. No JVD or thyromegaly appreciated. RESPIRATORY: Chest is symmetrical. No intercostals muscle retraction or any accessory muscle activation. There is no chest wall tenderness. Breath sounds are heard bilaterally. No rales or rhonchi heard. No evidence of any consolidation. BREASTS: Deferred. HEART: The heart sounds are normal. No S3 or S4. No significant murmurs. No pericardial rub ABDOMEN: No vessel pulsations or distention. No tenderness. No organomegaly appreciated. Bowel sounds are normally heard. : Deferred. RECTAL: Deferred. LYMPHATIC: No lymphadenopathy noted in the neck. EXTREMITIES: No edema or cyanosis. No clubbing. MUSCULOSKELETAL: No acute joint deformities or swelling SKIN: There are no significant rashes or ecchymosis NEUROPSYCHIATRIC: The patient is alert and oriented x3. Appears to be in a good mood. No tremors or rigidity noted. Data : 09/19/21 14:30 09/19/21 14:30 Other Labs: Laboratory Last Values WBC 8.4 10^3/uL (4.0-10.0) 09/19/21 14: RBC 5.12 10^6/uL (4.1-5.3) 09/19/21 14: Hgb 15.2 g/dL (11.7-16.6) 09/19/21 14:30 Hct 44.8 % (42.0-52.0) 09/19/21 14:30 MCV 87.5 fl (80-94) 09/19/21 14:30 MCH 29.7 pg (28.0-34.0) 09/19/21 14:30 MCHC 33.9 g/dL (30.0-36.0) 09/19/21 14:30 RDW 12.6 % (12.1-15.1) 09/19/21 14:30 Plt Count 301 10^3/cmm (130-400) 09/19/21 14:30 MPV 9.4 fL (7.4-10.4) 09/19/21 14:30 Neut % (Auto) 59.5 % 09/19/21 14:30 Lymph % (Auto) 27.1 % 09/19/21 14:30 [place] % (Auto) 9.5 % 09/19/21 14:30 Eos % (Auto) 3.0 % 09/19/21 14: Baso % (Auto) 0.7 % 09/19/21 14:30 Neut # (Auto) 5.00 10^3/uL (1.8-7.7) 09/19/21 14:30 Lymph # (Auto) 2.3 10^3/uL (0.8-4.8) 09/19/21 14:30 [place] # (Auto) 0.8 10^3/uL (0.2-0.9) 09/19/21 14:30 Eos # (Auto) 0.3 10^3/uL (0.0-0.8) 09/19/21 14:30 Baso # (Auto) 0.1 10^3/uL (0.0-0.1) 09/19/21 14:30 Nucleated RBC % (auto) 0 % 09/19/21 14:30 Nucleated RBCs # 0.0 /100WBC 09/19/21 14:30 Sodium 142 mmol/L (136-145) 09/19/21 14:30 Potassium 3.9 mmol/L (3.5-5.1) 09/19/21 14:30 Chloride 106 mmol/L (98-107) 09/19/21 14:30 Carbon Dioxide 22 mmol/L (22-29) 09/19/21 14:30 Anion Gap 17.9 (5-19) 09/19/21 14:30 BUN 14 mg/dL (6-20) 09/19/21 14:30 Creatinine 0.6 mg/dL (0.7-1.2) L 09/19/21 14:30 GFR Calculation 138.4 mL/min (90-130) H 09/19/21 14:30 Glucose 114 mg/dL (65-115) 09/19/21 14:30 Calculated Osmolality 295 mOsm/kg (285-295) 09/19/21 14:30 Calcium 9.2 mg/dL (8.5-10.5) 09/19/21 14:30 Total Bilirubin 0.5 mg/dL (0.15-1.2) 09/19/21 14:30 AST 18 U/L (0-40) 09/19/21 14:30 ALT 33 U/L (0-41) 09/19/21 14:30 Alkaline Phosphatase 122 IU/L (40-130) 09/19/21 14:30 Troponin T Baseline 17 ng/L (0-15) H 09/19/21 14:30 Troponin T 120 Minute 56.16 ng/L (0-15) H 09/19/21 16:58 Delta Troponin T 39.16 ABS# (0-10) H* 09/19/21 16:58 Total Protein 7.4 g/dL (6.6-8.7) 09/19/21 14:30 Albumin 4.1 g/dL (3.5-5.2) 09/19/21 14:30 Globulin 3.3 g/dL (1.3-4.6) 09/19/21 14:30 EKG 1: My Interpretation: Normal sinus rhythm with a heart rate of [address] depression and some T wave changes in leads I and aVL. EKG computer-generated impression: Chest X-Ray 09/19/21 14:25 IMPRESSION: No acute findings. A&P Assessment and plan (1) NSTEMI (non-ST elevated myocardial infarction): The patient's clinical presentation, EKG findings and elevated troponin T are consistent with a non-ST elevation myocardial infarction. Hemodynamically he is stable. For further evaluation of his cardiac status, an echocardiogram would be helpful. He may be treated with subcu Lovenox, p.o. aspirin, Plavix, beta- tremaine and a statin. Status: Acute (2) Tobacco dependency: Advised only to quit smoking. Status: Acute (3) Benign essential hypertension with target blood pressure below 140/90: Currently the blood pressure is fairly under control. He may be started on a topical nitrates and beta-tremaine. Status: Acute Plan Patient may benefit from a cardiac catheterization to further evaluate his coronary status and decide on further management. After reviewing the ec hocardiogram, we will decide the timing of the coronary angiogram. Patient needs to be closely monitored on the telemetry. Based on his clinical progress, further recommendations will be made. Thank you for the opportunity to eval this patient make these recommendations. Coding Level of Care Code Acute Er Nurse for Doc Fwd History Detailed Exam Detailed Medical Decision Making High Complexity Diagnoses NSTEMI (non-ST elevated myocardial infarction) I21.4 Tobacco dependency F17.200 Benign essential hypertension with target blood pressure below 140/90 I10
--- NOTE | 2021-09-19 20:25 | ECG_ITS ---
[facility] Test Date: 2021-09-20 Pat Name: Javid Mata Department: Room: EDIP Gender: Male [place]: : 1965 Requested By: Ramin Geller Order Number: [id number] Eveline MD: Rolo Cohen M.D. Measurements Intervals [place] Rate: 72 P: 26 OK: 142 QRS: 32 QRSD: 102 T: 92 QT: 373 QTc: 410 Interpretive Statements SINUS RHYTHM NONSPECIFIC ST & T-WAVE ABNORMALITY Compared to ECG 09/19/2021 16:03:21 T-wave abnormality now present ST (T wave) deviation no longer present Electronically Signed On 09-21-2021 6:43:38 CDT by Rolo Cohen M.D. [id number]
[2021-09-19 22:01] LABS: Troponin 5 6HR 68.89 ng/L (0-15)
[2021-09-19 22:03] LABS: Troponin 5 6HR Delta 51.89 ng/L (0-12)
[2021-09-19] MEDS: sodium chloride 0.9% 1,000 ML 50 ML IV (23:34)
[2021-09-19] MEDS: metoprolol tartrate 25 mg Tablet PO (23:34)
[2021-09-19] MEDS: nitroglycerin 1 gm/inch oint Pkt 1 INCH TOPICAL (23:34)
[2021-09-20] VITALS (21 sets, daily range): BP systolic 106–172; BP diastolic 61–90; PULSE 71–91; RESP 15–24; TEMP 36.7–37.8; O2SAT 93–99
[2021-09-20 00:58] LABS: NT Pro B Type Natriuretic Pept 537 pg/mL (0-125)
[2021-09-20 04:26] LABS: Basophils # 0.1 10^3/uL (0.0-0.1); Basophils % 0.8 %; Eosinophils # 0.2 10^3/uL (0.0-0.8); Eosinophils % 2.8 %; Hematocrit 37.5 % (42.0-52.0); Hemoglobin 12.5 g/dL (11.7-16.6); Lymphocytes # 1.3 10^3/uL (0.8-4.8); Lymphocytes % 21.9 %; Mean Corpuscular HGB Conc 33.3 g/dL (30.0-36.0); Mean Corpuscular Hemoglobin 30.2 pg (28.0-34.0); Mean Corpuscular Volume 90.6 fl (80-94); Mean Platelet Volume 8.9 fL (7.4-10.4); Monocytes # 0.6 10^3/uL (0.2-0.9); Neutrophils # 3.95 10^3/uL (1.8-7.7); Neutrophils % 64.3 %; Nucleated Red Blood Cells % 0 %; Platelet Count 226 10^3/cmm (130-400); Red Blood Count 4.14 10^6/uL (4.1-5.3); Red Cell Distribution Width 12.5 % (12.1-15.1); White Blood Count 6.1 10^3/uL (4.0-10.0)
[2021-09-20 04:38] LABS: INR 0.91 (0.8-1.2); Partial Thromboplastin Time 27.4 SECONDS (23.9-36.7)
[2021-09-20 05:04] LABS: Alanine Aminotransferase 28 U/L (0-41); Albumin Level 3.4 g/dL (3.5-5.2); Alkaline Phosphatase 98 IU/L (40-130); Anion Gap 11.7 (5-19); Aspartate Amino Transferase 21 U/L (0-40); Blood Urea Nitrogen 11 mg/dL (6-20); Calcium 7.7 mg/dL (8.5-10.5); Carbon Dioxide 24 mmol/L (22-29); Chloride 106 mmol/L (98-107); Globulin 2.5 g/dL (1.3-4.6); Glomerular Filtration Rate 170.8 mL/min (90-130); Glucose 142 mg/dL (65-115); Magnesium 1.8 mg/dL (1.7-2.3); Osmolality Calculated 288 mOsm/kg (285-295); Potassium 3.7 mmol/L (3.5-5.1); Sodium 138 mmol/L (136-145); Thyroid Stimulating Hormone 0.51 uIU/mL (0.27-4.20); Total Bilirubin 0.2 mg/dL (0.15-1.2); Total Protein 5.9 g/dL (6.6-8.7)
[2021-09-20] MEDS: nitroglycerin 1 gm/inch oint Pkt 1 INCH TOPICAL (06:31)
[2021-09-20] MEDS: atorvastatin 40 mg Tablet PO (08:05)
[2021-09-20] MEDS: clopidogrel 300 mg Tablet PO (08:05)
[2021-09-20] MEDS: aspirin 81 mg EC Tablet PO (08:05)
[2021-09-20] MEDS: pantoprazole DR 40 mg Tablet PO (08:05)
[2021-09-20] MEDS: metoprolol tartrate 25 mg Tablet PO ×2 (08:05→20:31)
[2021-09-20] MEDS: enoxaparin 80 mg/0.8 mL Syringe SUBCUT (08:06)
--- NOTE | 2021-09-20 08:35 | P.PN_ITS ---
Subjective Subjective: Patient was seen and examined this morning, continue to be on nitro drip denies any chest pain right now. His other vitals and labs have been reviewed. Medications: Medication Review Details: Generic Name Dose Route Start Last Admin Trade Name Hugo PRN Reason Stop Dose Admin Aspirin 81 mg 09/20/21 09:00 09/20/21 08:05 Aspirin 81 Mg Ec Tablet PO 81 mg DAILY MONIK Administration Atorvastatin Calci um 40 mg 09/20/21 09:00 09/20/21 08:05 Atorvastatin 40 Mg Tablet PO 40 mg DAILY MONIK Administration Nitroglycerin/Dext marciano 50 mg in 250 mls @ 0 mls/hr 09/19/21 16:30 09/19/21 16:[address] ip IV 5 mcg/min .Q0M MONIK 1.5 mls/hr Administration Protocol Per Protocol Sodium Chloride 1,000 mls @ 50 ml s/hr 09/19/21 18:30 09/19/21 23:34 Sodium Chloride 0.9% IV 50 mls/hr .Q20H MONIK Administration Metoprolol Tartrat e 25 mg 09/19/21 21:00 09/20/21 08:05 Metoprolol Tartr ate 25 Mg Tablet PO 25 mg BID@0900,2100 MONIK Administration Nitroglycerin 1 inch 09/19/21 18:30 09/20/21 06:31 Nitroglycerin 1 Gm/Inch Oint Pkt TOPICAL 1 inch Q6H MONIK Administration Pantoprazole Sodiu m 40 mg 09/20/21 09:00 09/20/21 08:[address] 40 Mg Tablet PO 40 mg DAILY MONIK Administration Vitals/I&O/Wt Last Vital Signs Temp 97.9 F 09/19/21 14:59 Pulse 81 09/20/21 07:47 Resp 18 09/20/21 07:47 BP 126/71 09/20/21 07:47 Pulse Ox 97 09/20/21 07:47 O2 Del Method 09/20/21 07:47 O2 Flow Rate 4 09/19/21 16:30 Weight last 48 hrs Weight 83.915 kg Physical Exam Const: COMMON NORMALS: patient oriented x3 HENMT: COMMON NORMALS: normocephalic, atraumatic, hearing grossly normal bilaterally and external ears normal HEAD & SCALP: normocephalic and atraumatic EXTERNAL EAR: Yes external ears normal Resp: COMMON NORMALS: normal respiratory effort, No retractions, No use of accessory muscles and clear to auscultation bilaterally EFFORT & INSPECTION: Yes symmetric chest movement AUSCULTATION: clear to auscultation bilaterally Cardio: COMMON NORMALS: regular rate, regular rhythm, S1 normal heart sound present, S2 normal heart sound present, No gallops present (Cardio), No murmurs present (Cardio), No rub (Cardio) and Peripheral pulses 2+ throughout RATE: regular rate RHYTHM: regular rhythm HEART SOUNDS: S1 normal heart sound present and S2 normal heart sound present PERIPHERAL PULSES: Peripheral pulses 2+ throughout GI: COMMON NORMALS: Normal to inspection, nondistended, normoactive bowel sounds present, Soft to palpation, non-tender, No hepatosplenomegaly present and no masses AUSCULTATION: Yes normoactive bowel sounds PALPATION: Yes Soft to palpation and Yes No hepatosplenomegaly present RECTAL EXAM: Yes deferred Extremity: COMMON NORMALS: no clubbing, cyanosis or edema and no pedal edema Neuro: COMMON NORMALS: patient oriented x3 Data : 09/20/21 04:15 09/20/21 04:15 A&P Assessment and plan (1) NSTEMI (non-ST elevated myocardial infarction): Status: Acute (2) Tobacco dependency: Status: Acute Plan 56 year old male with no significant past medical history, except for extensive smoking history smokes a pack a day and 2 days, has been smoking since he was 12 years of age, came in with chief complaint of substernal chest pain radiating to LT arms , described as burning sensations, worse with any form of exertion, relieved with rest ,started 4 days back, accompanied with tingling in both the hands. Assessment: NSTEMI Chest pain Tobacco use Plan: CTA chest: No pulm embolism no aortic dissection 2D echo: Normal LV size with borderline low ejection fraction 50 to 55%. Mild diffuse hypokinesia of the mid and apical septum, anteroseptum and the LV apex.Grade I/IV diastolic dysfunction (abnormal relaxation filling pattern), normal to mildly elevated filling pressures. Trace tricuspid valve regurgitation. Minimally thickened aortic valve. There is no pericardial effusion. There are no intracardiac masses. On ACS protocol (aspirin statin beta-tremaine, Nitropaste, sublingual nitro as needed, therapeutic anticoagulation, on nitro drip ) Cardiology on board: Due for cardiac cath today CODE STATUS: Full code DVT prophylaxis: Not needed on therapeutic anticoagulation Attestations Medical Necessity Statement*: Patient is still in hospital management of NSTEMI. Due for cardiac cath today. Coding Level of Care Code Acute Biomedical Specialist for [facility] Fwd Exam Detailed Diagnoses NSTEMI (non-ST elevated myocardial infarction) I21.4 Tobacco dependency F17.200
--- NOTE | 2021-09-20 11:12 | XACV_ITS ---
Exam Room: [facility] Ht: 173 cm Wt: 84 kg BSA: 2.03 m2 Gender: Male : 1965 Any Known Allergies: No known allergies Exam Priority: Routine Procedure(s): Procedure Description: Diagnostic procedure Procedure Description: PCI procedure Procedure Description: Left Heart Catheterization Procedure Description: Left ventriculography Procedure Description: Drug Eluting Coronary Stent Procedure Description: PTCA Procedure Description: Coronary Angiography Diagnostic Cath Status: Urgent Diagnostic Findings * Patient with typical angina pectoris which has become unstable. Angiography revealed right coronary artery dominance. The left main coronary artery is normal and short and bifurcates into the LAD and circumflex. There is a greater than 95% stenosis in the proximal LAD. There is a 95% stenosis in the far distal/apical LAD. The circumflex is relatively small. There are 2 marginal branches. The first contains a 95% stenosis and the second also a 95% stenosis. The first OM is larger than the second OM. The right coronary is the dominant vessel and is essentially normal aside from some very minor luminal irregularities.. PCI Status: Urgent PCI LVEF Assessed: Yes PCI Indication: NSTE - ACS Interventional Findings * First, the LAD was primarily stented with a 3.5 x 15 mm stent. The very distal/apical LAD was not intervened upon. Next, the first obtuse marginal branch underwent balloon angioplasty followed by stenting with a 2.5 x 18 mm stent. The second obtuse marginal branch underwent balloon angioplasty only with a good result. Decision for PCI with Surgical Consult: No PCI for Multi-vessel Disease: Yes Multi-vessel Procedure Type: Initial PCI Conclusions 1. Two-vessel coronary with stenting of the proximal LAD and first obtuse marginal and plain old balloon angioplasty of the second obtuse marginal. Interventional RX Recommendation: PCI w/o planned CABG Diagnostic RX Recommendation: PCI w/o planned CABG Anticoagulation: Heparin Ventriculography Ejection Fraction: 60.0 % Pressures Phase:Rest AO : 117 / 69 ( 89 ) @ 3:24:00 PM 120 / 70 ( 90 ) @ 3:34:00 PM 124 / 64 ( 92 ) @ 3:34:00 PM 127 / 73 ( 95 ) @ 3:37:00 PM 99 / 41 ( 61 ) @ 3:45:00 PM LV : -3 / -6 / -4 @ 3:32:00 PM 143 / -7 / 23 @ 3:33:00 PM 122 / 13 / 24 @ 3:34:00 PM 121 / 13 / 24 @ 3:34:00 PM Valves Phase:DefaultPhase AV : 1.0 @ 3:12:33 PM AV Mean Gradient: 0.0 @ 3:12:33 PM Clinical Evaluation EBL: 5mL-10mL Procedural Details Procedure Consent Obtained. Current Diagnosis : NSTEMI. Pre-Procedure Time Out. Identified patient by full name and date of as verbalized by the patient/guarantor. Does the consent match the physician's order: Yes. Accurate & Complete Informed Consent: Yes. Inpatient/Outpatient History & Physical on Chart: Yes. If H&P is completed, is and addenduem needed: No; If yes, is the addendum complete: N/A. Visualize and Verify Site with Patient/Guarantor: N/A. Relevant Radiology Images available: Yes. Pre-op teaching completed and patient verbalized understanding. The risks, benefits, and alternatives of sedation and/or procedure were discussed by physician. The patient agrees to continue. Procedure started. [facility] Clinical Fraility Score: 3: Managing Well. 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 Chest Pain Symptom Assessment: Atypical Angina. Correct patient, site and procedure confirmed by cath team. Current diagnosis: NSTEMI. PERRLA. Strong, equal hand cellular phone repairer bilaterally. Lungs clear x 5 lobes. IV Site on Arrival: 20 gauge in the right anticubital. IV Fluids: 0.9% NaCl at KVO. 750 mL infused prior to quality assurance qa lab analyst. Pre Procedural Pulses: right radial was 3+. Oxygen started at 2liters/min via nasal canula. right groin was prepped with chloroprep then draped in the usual sterile fashion. right radial was prepped with chloroprep then draped in the usual sterile fashion. Physician notified. Baseline sample Acquired. HR: 74 BPM. Physician arrived. Physician scrubbed in. Immediate Pre-Procedure Time Out. Correct Patient: Yes; Correct Procedure: Yes; Correct Site: Yes; Correct Patient Position: Yes; Correct Supplies: Yes; Dried Flammable Prep: Yes; Blood Products Available: N/A;. Lidocaine 1% infiltrated to the right radial. Arterial access obtained. A 5 estonian TIG catheter in over wire. Catheter redirected to the RCA. Multiple views taken of left coronary artery. Multiple views taken of right coronary artery. Catheter out. A 5 estonian Angled Pig catheter in over wire. EDP Sample taken: LV -4/-7,-5; HR: 72 BPM; SpO2: 98%. EDP Sample taken: LV 143/-8,23; HR: 75 BPM; SpO2: 98%. LV gram performed in GRANT @ 10 mL/second for a total of 30 mL. EDP Sample taken: LV 122/13,24; HR: 77 BPM; SpO2: 98%. Pullback taken: LV 121/13,24; AO 120/70(90); Mean: 0mmHg, Peak to Peak: 1mmHg, SEP: 12sec/min; HR: 75 BPM; SpO2: 98%. 6 estonian XB 3.5 guide catheter was inserted over the wire. [place] guidewire was advanced through the guide catheter to lesion in the PDA. Inflation Number : 1 Laine Pruitt PUNEET 3.5X15 FRANKI -Lot Number# [id number] exp date 04/27/2024 was prepped and advanced across the Prox LAD. The stent was deployed at 12 PILLO for 0:29 seconds. Stent balloon out over wire. Wire out. Inflation number : 1 A TREK 2.50X12 RX BALLOON was prepped and advanced across the 1st Ob Susi , then inflated to 8 PILLO for 0:25 seconds. Inflation number: 2 The AB TREK 2.50X12 RX BALLOON was reinflated across the 1st Ob Susi, to 8 PILLO for 0:29 seconds. Balloon out. Inflation Number : 3 A MDAzeb R PUNEET 2.25X18 FRANKI -Lot Number# [id number] exp date 01/21/2024 was prepped and advanced across the 1st Ob Susi. The stent was deployed at 12 PILLO for 0:32 seconds. Stent balloon out over wire. Wire redirected to 2nd OM. Inflation number : 1 A AB TREK 2.25X12 RX BALLOON was prepped and advanced across the 2nd Ob Susi , then inflated to 8 PILLO for 0:27 seconds. Inflation number: 2 The AB TREK 2.25X12 RX BALLOON was reinflated across the 2nd Ob Susi, to 8 PILLO for 0:22 seconds. Results checked. Inflation number: 3 The AB TREK 2.25X12 RX BALLOON was reinflated across the 2nd Ob Susi, to 8 PILLO for 0:26 seconds. Results checked. Balloon out. Wire out. Guide catheter out. A TR Band was successful obtaining hemostatsis at the Right Radial artery insertion site. TR band placed. Hemostasis obtained. Post Procedure: Pulses reassessed and unchanged. PERRLA. Strong, equal hand cellular phone repairer bilaterally. No VTE prophylaxis required. Medication's Wasted: Nitro = 49.8 mg. Medication's Wasted: Heparin = 1000 units. Medication's Wasted: Lidocaine 1% = 1 mL. Medication's Wasted: Other = fentanyl 50 mcg. Medication's Wasted: Other = versed 1 mg. Total IV fluids: 68 mL. Contrast type used: Omnipaque 300 mgI/mL, 500 mL bottle. Complications: none. Estimated blood loss: 5mL-10mL. Responsiveness - Normal response to verbal stimuli; alert and oriented, PERRLA. Airway - Unaffected, no intervention required; spontaneous ventilation. Circulation: W/N/L, pulses unchanged. Nausea/Vomiting: No. Procedure completed. Post-op diagnosis: ACS. Patient transferred by wheelchair to 1st floor. Access Site Site: Right Radial artery Sheath Size: 6 Fr Hemostasis Method: TR Band Hemostasis Success: Successful Procedure Medications Start: 2:15 PM Stop: 2:15 PM Medication: Versed Amount: 1 mg Route: I.V. Start: 2:15 PM Stop: 2:15 PM Medication: Fentanyl Amount: 50 mcg Route: I.V. Start: 2:24 PM Stop: 2:24 PM Medication: Heparin Amount: 5000 units Route: I.V. Start: 2:22 PM Stop: 2:22 PM Medication: Nitrogylcerin Amount: 200 mcg Route: I.A. Start: 3:07 PM Stop: 3:07 PM Medication: Plavix Amount: 300 mg Route: P.O. I, the attending physician, have reviewed and verified all procedure medications. Yes, all medications given per verbal order History/Risk Factors Hypertension: Yes Dyslipidemia: No Peripheral Arterial Disease (PAD): No Myocardial Infarction (CA): No Obesity: No Renal Disease: No Tobacco Use: Current/Recent(w/in 1 year) Prior Interventions PCI: No CABG: No Valve Surgery: No Report Signatures Finalized by Dr. Eze Vincent MD on 09/20/2021 03:25 PM
--- NOTE | 2021-09-20 12:08 | P.PN_ITS ---
Subjective Subjective: Aug@2014 the patient is chest pain-free now. His echocardiogram revealed mild diffuse hypokinesia of the mid and apical septum, anteroseptum and the LV apex. LV ejection fraction was 50 to 55%. Mild concentric left ventricular hypertrophy was noted. The troponin T estimation revealed as 2-hour delta of 39 and a 6-hour delta of 52. Medications: Medication Review Details: Current Medications Acetaminophen (Acetaminophen 325 Mg Tablet) 650 mg PO Q6H PRN PRN Reason: Mild/Mod Pain Or Temp >/= 101 Aspirin (Aspirin 81 Mg Ec Tablet) 81 mg PO DAILY [facility] Last Admin: 09/20/21 08:05 Dose: 81 mg Atorvastatin Calcium (Atorvastatin 40 Mg Tablet) 40 mg PO DAILY [facility] Last Admin: 09/20/21 08:05 Dose: 40 mg Bisacodyl (Bisacodyl 5 Mg Tablet) 10 mg PO DAILY PRN; Protocol PRN Reason: Constipation (see protocol) Enoxaparin Sodium (Enoxaparin 80 Mg/0.8 Ml Syringe) 80 mg SUBCUT Q12H [facility] Nitroglycerin/Dextrose (Nitroglycerin Drip) 50 mg in 250 mls @ 0 mls/hr IV .Q0M [facility]; Protocol Last Admin: 09/19/21 16:33 Dose: 5 mcg/min, 1.5 mls/hr Sodium Chloride (Sodium Chloride 0.9%) 1,000 mls @ 50 mls/hr IV .Q20H [facility] Last Admin: 09/19/21 23:34 Dose: 50 mls/hr Metoprolol Tartrate (Metoprolol Tartrate 25 Mg Tablet) 25 mg PO BID@0900,2100 [facility] Last Admin: 09/20/21 08:05 Dose: 25 mg Morphine Sulfate (Morphine 4 Mg/Ml Sdv 1 Ml) 2 mg IVP Q4H PRN PRN Reason: SEVERE PAIN Morphine Sulfate (Morphine 4 Mg/Ml Sdv 1 Ml) 4 mg IVP Q4H PRN PRN Reason: SEVERE PAIN Nitroglycerin (Nitroglycerin 0.4 Mg Sublingual Tablet) 0.4 mg SUBLINGUAL Q5M PRN PRN Reason: CHEST PAIN Nitroglycerin (Nitroglycerin 1 Gm/Inch Oint Pkt) 1 inch TOPICAL Q6H [facility] Last Admin: 09/20/21 06:31 Dose: 1 inch Ondansetron HCl (Ondansetron 2 Mg/Ml Sdv 2 Ml) 4 mg IVP Q8H PRN PRN Reason: vomiting, or N/V if npo Ondansetron HCl (Ondansetron 2 Mg/Ml Sdv 2 Ml) 4 mg IVP Q6H PRN PRN Reason: NAUSEA AND VOMITING Pantoprazole Sodium (Pantoprazole Dr 40 Mg Tablet) 40 mg PO DAILY MONIK Last Admin: 09/20/21 08:05 Dose: 40 mg Vitals/I&O/Wt Last Vital Signs Temp 97.9 F 09/19/21 14:59 Pulse 76 09/20/21 12:04 Resp 15 09/20/21 12:04 BP 124/62 09/20/21 12:04 Pulse Ox 97 09/20/21 12:04 O2 Del Method 09/20/21 12:04 O2 Flow Rate 4 09/19/21 16:30 Weight last 48 hrs Weight 185 lb Physical Exam Narrative: GENERAL: The patient is alert and oriented times three. Not in any acute distress. HEENT: No significant pallor, icterus or lymphadenopathy.Oral cavity: There are no mucous membrane lesions. NECK: Trachea appears to be central. No masses noted. No JVD or thyromegaly appreciated. RESPIRATORY: Chest is symmetrical. No intercostals muscle retraction or any accessory muscle activation. There is no chest wall tenderness. Breath sounds are heard bilaterally. No rales or rhonchi heard. No evidence of any consolidation. BREASTS: Deferred. HEART: The heart sounds are normal. No S3 or S4. No significant murmurs. No pericardial rub ABDOMEN: No vessel pulsations or distention. No tenderness. No organomegaly appreciated. Bowel sounds are normally heard. : Deferred. RECTAL: Deferred. LYMPHATIC: No lymphadenopathy noted in the neck. EXTREMITIES: No edema or cyanosis. No clubbing. MUSCULOSKELETAL: No acute joint deformities or swelling SKIN: There are no significant rashes or ecchymosis NEUROPSYCHIATRIC: The patient is alert and oriented x3. Appears to be in a good mood. No tremors or rigidity noted. Data : 09/20/21 04:15 09/20/21 04:15 Other Labs: Laboratory Last Values WBC 6.1 10^3/uL (4.0-10.0) 09/20/21 04:15 RBC 4.14 10^6/uL (4.1-5.3) 09/20/21 04:15 Hgb 12.5 g/dL (11.7-16.6) 09/20/21 04:15 Hct 37.5 % (42.0-52.0) L 09/20/21 04:15 MCV 90.6 fl (80-94) 09/20/21 04:15 MCH 30.2 pg (28.0-34.0) 09/20/21 04:15 MCHC 33.3 g/dL (30.0-36.0) 09/20/21 04:15 RDW 12.5 % (12.1-15.1) 09/20/21 04:15 Plt Count 226 10^3/cmm (130-400) 09/20/21 04:15 MPV 8.9 fL (7.4-10.4) 09/20/21 04:15 Neut % (Auto) 64.3 % 09/20/21 04:15 Lymph % (Auto) 21.9 % 09/20/21 04:15 [place] % (Auto) 10.0 % 09/20/21 04:15 Eos % (Auto) 2.8 % 09/20/21 04:15 Baso % (Auto) 0.8 % 09/20/21 04:15 Neut # (Auto) 3.95 10^3/uL (1.8-7.7) 09/20/21 04:15 Lymph # (Auto) 1.3 10^3/uL (0.8-4.8) 09/20/21 04:15 [place] # (Auto) 0.6 10^3/uL (0.2-0.9) 09/20/21 04:15 Eos # (Auto) 0.2 10^3/uL (0.0-0.8) 09/20/21 04:15 Baso # (Auto) 0.1 10^3/uL (0.0-0.1) 09/20/21 04:15 Nucleated RBC % (auto) 0 % 09/20/21 04:15 Nucleated RBCs # 0.0 /100WBC 09/20/21 04:15 PT 12.50 SECONDS (12.1-14.9) 09/20/21 04:15 INR 0.91 (0.8-1.2) 09/20/21 04:15 APTT 27.4 SECONDS (23.9-36.7) 09/20/21 04:15 Sodium 138 mmol/L (136-145) 09/20/21 04:15 Potassium 3.7 mmol/L (3.5-5.1) 09/20/21 04:15 Chloride 106 mmol/L (98-107) 09/20/21 04:15 Carbon Dioxide 24 mmol/L (22-29) 09/20/21 04:15 Anion Gap 11.7 (5-19) 09/20/21 04:15 BUN 11 mg/dL (6-20) 09/20/21 04:15 Creatinine 0.5 mg/dL (0.7-1.2) L 09/20/21 04:15 GFR Calculation 170.8 mL/min (90-130) H 09/20/21 04:15 Glucose 142 mg/dL (65-115) H 09/20/21 04:15 Calculated Osmolality 288 mOsm/kg (285-295) 09/20/21 04:15 Calcium 7.7 mg/dL (8.5-10.5) L 09/20/21 04:15 Magnesium 1.8 mg/dL (1.7-2.3) 09/20/21 04:15 Total Bilirubin 0.2 mg/dL (0.15-1.2) 09/20/21 04:15 AST 21 U/L (0-40) 09/20/21 04:15 ALT 28 U/L (0-41) 09/20/21 04:15 Alkaline Phosphatase 98 IU/L (40-130) 09/20/21 04:15 Troponin T Baseline 17 ng/L (0-15) H 09/19/21 14:30 Troponin T 120 Minute 56.16 ng/L (0-15) H 09/19/21 16:58 Delta Troponin T 39.16 ABS# (0-10) H* 09/19/21 16:58 Troponin T Hi Sens 6Hr 68.89 ng/L (0-15) H 09/19/21 21:40 Troponin T Hi Sens 6Hr Delta 51.89 ng/L (0-12) H* 09/19/21 21:40 NT-Pro-B Natriuret Pep 537 pg/mL (0-125) H 09/19/21 21:40 Total Protein 5.9 g/dL (6.6-8.7) L D 09/20/21 04:15 Albumin 3.4 g/dL (3.5-5.2) L 09/20/21 04:15 Globulin 2.5 g/dL (1.3-4.6) 09/20/21 04:15 TSH 0.51 uIU/mL (0.27-4.20) 09/20/21 04:15 Echo: My impression: Normal LV size with borderline low ejection fraction 50 to 55%. ? Mild diffuse hypokinesia of the mid and apical septum, ?anteroseptum and the LV apex.Grade I/IV diastolic dysfunction ?(abnormal relaxation filling pattern), normal to mildly elevated ?filling pressures. ?Trace tricuspid valve regurgitation. ?Minimally thickened aortic valve. ?There is no pericardial effusion. ?There are no intracardiac masses. ?No similar previous studies are available for comparison A&P Assessment and plan (1) NSTEMI (non-ST elevated myocardial infarction): Patient is on Lovenox, Plavix, beta-tremaine, aspirin, statin and nitrates. Advised to continue the same. Status: Acute (2) Benign essential hypertension with target blood pressure below 140/90: Currently normotensive. We will continue on the current medications. Status: Acute (3) Tobacco dependency: Currently advised to quit smoking Status: Acute (4) Abnormal echocardiogram: Most likely from the ischemia. Status: Acute Plan Discussed the patient detail about further treatment options. For further evaluation of his coronary status, he requires a cardiac catheterization. The risk of bleeding, hematoma, vascular injury, myocardial infarction, CVA, renal failure and other concomitant complications were explained in detail. Patient understood this well and consented to proceed. We will go ahead and schedule for the angiogram this afternoon. Attestations Medical Necessity Statement*: Patient requires continued hospital stay for close monitoring and further management Coding Level of Care Code Acute Manufacturing Development Engineer for Doc Sharif Diagnoses NSTEMI (non-ST elevated myocardial infarction) I21.4 Benign essential hypertension with target blood pressure below 140/90 I10 Tobacco dependency F17.200 Abnormal echocardiogram R93.1
--- NOTE | 2021-09-20 12:47 | PC.NURSE ---
received into room 107 from er at 1240.report received.pt is alert and oriented x 4.sr on monitor.ntg drip at 5 mcg.denies cp at present.plan for cardiac cath at 1400.oriented to room environment.instructed to notify staff for any cp,sob, or for any concerns at all.pt verb understanding of instructions
[2021-09-20] MEDS: sodium chloride 0.9% 1,000 ML 100 ML IV (15:30)
--- NOTE | 2021-09-20 15:34 | PC.NURSE ---
to cardiac sanitation laborer at 1400.
--- NOTE | 2021-09-20 15:36 | PC.NURSE ---
received from cardiac lab nurse at 1525.report received.pt is alert and oriented x 4.denies pain.sr on monitor.right wrist with tr band on and inflated.no hematoma noted.right hand is warm to touch and with brisk capillary refill.palpable radial pulse noted distal to tr band.pt instructed in activity restrictions s/p radial artery procedure..and instructed to notify staff for any bleeding,pain,sob,numbness,or for any concerns at all.pt verb understanding of instructions
--- NOTE | 2021-09-20 19:33 | PC.NURSE ---
transferred to room 275 via w/c at this time.report given to alberto griffin
--- NOTE | 2021-09-20 22:26 | PC.NURSE ---
TR Band removed at approximately 2100. No swelling hematoma or bleeding noted. Pt tolerated well. Pt had no c/o pain or discomfort at the present time.
[2021-09-21] VITALS: BP 126/68; PULSE 84; RESP 18; TEMP 36.5; O2SAT 92
[2021-09-21] MEDS: sodium chloride 0.9% 1,000 ML 100 ML IV (02:09)
[2021-09-21 04:00] VITALS: BP 128/61; PULSE 72; RESP 17; TEMP 37.1; O2SAT 94
[2021-09-21 06:00] VITALS: PULSE 68
[2021-09-21 06:03] LABS: Basophils # 0.1 10^3/uL (0.0-0.1); Eosinophils # 0.1 10^3/uL (0.0-0.8); Hematocrit 38.7 % (42.0-52.0); Hemoglobin 12.6 g/dL (11.7-16.6); Lymphocytes # 2.2 10^3/uL (0.8-4.8); Lymphocytes % 36.7 %; Mean Corpuscular HGB Conc 32.6 g/dL (30.0-36.0); Mean Corpuscular Hemoglobin 29.6 pg (28.0-34.0); Mean Corpuscular Volume 91.1 fl (80-94); Mean Platelet Volume 9.5 fL (7.4-10.4); Monocytes % 15.9 %; Neutrophils # 2.65 10^3/uL (1.8-7.7); Neutrophils % 44.1 %; Nucleated Red Blood Cells % 0 %; Platelet Count 223 10^3/cmm (130-400); Red Blood Count 4.25 10^6/uL (4.1-5.3); Red Cell Distribution Width 12.6 % (12.1-15.1)
[2021-09-21 06:46] LABS: Alanine Aminotransferase 25 U/L (0-41); Albumin Level 3.6 g/dL (3.5-5.2); Alkaline Phosphatase 110 IU/L (40-130); Aspartate Amino Transferase 18 U/L (0-40); Blood Urea Nitrogen 11 mg/dL (6-20); Carbon Dioxide 23 mmol/L (22-29); Chloride 105 mmol/L (98-107); Globulin 2.7 g/dL (1.3-4.6); Glomerular Filtration Rate 138.4 mL/min (90-130); Glucose 122 mg/dL (65-115); Osmolality Calculated 285 mOsm/kg (285-295); Sodium 137 mmol/L (136-145); Total Bilirubin 0.3 mg/dL (0.15-1.2); Total Protein 6.3 g/dL (6.6-8.7)
[2021-09-21 08:00] VITALS: BP 125/65; PULSE 74; RESP 15; O2SAT 94
[2021-09-21] MEDS: clopidogrel 75 mg Tablet PO (09:00)
[2021-09-21] MEDS: atorvastatin 40 mg Tablet PO (09:00)
[2021-09-21] MEDS: metoprolol tartrate 25 mg Tablet PO (09:01)
[2021-09-21] MEDS: aspirin 81 mg EC Tablet PO (09:01)
[2021-09-21] MEDS: pantoprazole DR 40 mg Tablet PO (09:01)
--- NOTE | 2021-09-21 10:59 | PC.NURSE ---
patient requesting to go home spoke with providers they will be in to see him instructions to obtain EKG
--- NOTE | 2021-09-21 11:05 | ECG_ITS ---
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 Measurements Intervals [place] Rate: 64 P: 16 MA: 160 QRS: 26 QRSD: 102 T: 101 QT: 419 QTc: 432 Interpretive Statements SINUS RHYTHM INFERIOR MYOCARDIAL INFARCTION , OF INDETERMINATE AGE [40+ ms Q WAVE AND/OR ST/T ABNORMALITY IN II/aVF] MODERATE T-WAVE ABNORMALITY, CONSIDER ANTERIOR ISCHEMIA [-0.1+ mV T-WAVE IN V3/V4] Compared to ECG 09/20/2021 04:46:33 Myocardial infarct finding now present Possible ischemia now present T-wave abnormality still present Electronically Signed On 09-21-2021 19:48:06 CDT by Kerline Barone M.D. [email or web address]
[2021-09-21 12:00] VITALS: BP 137/83; PULSE 75; RESP 15; TEMP 36.6; O2SAT 95
[2021-09-21] MEDS: diphenhydrAMINE 25 mg Capsule PO (12:47)
[2021-09-21] MEDS: famotidine 20 mg Tablet PO (12:47)
--- NOTE | 2021-09-21 13:04 | PM.PN ---
Subjective Subjective: The is feeling okay with no chest pain or chest tightness. No shortness of breath. Telemetry shows sinus rhythm. No hematoma bleeding from the arterial puncture site. The coronary angiogram revealed a high-grade stenosis in the mid LAD and this first and second obtuse marginal branches of the circumflex artery. He had angioplasty and stent placement of the LAD and first OM1 lesions. The second OM lesion was treated with balloon angioplasty alone. Medications: Medication Review Details: Current Medications Acetaminophen (Acetaminophen 325 Mg Tablet) 650 mg PO Q6H PRN PRN Reason: Mild/Mod Pain Or Temp >/= 101 Aspirin (Aspirin 81 Mg Ec Tablet) 81 mg PO DAILY [facility] Last Admin: 09/21/21 09:01 Dose: 81 mg Atorvastatin Calcium (Atorvastatin 40 Mg Tablet) 40 mg PO DAILY [facility] Last Admin: 09/21/21 09:00 Dose: 40 mg Bisacodyl (Bisacodyl 5 Mg Tablet) 10 mg PO DAILY PRN; Protocol PRN Reason: Constipation (see protocol) Clopidogrel Bisulfate (Clopidogrel 75 Mg Tablet) 75 mg PO DAILY [facility] Last Admin: 09/21/21 09:00 Dose: 75 mg Sodium Chloride (Sodium Chloride 0.9%) 1,000 mls @ 100 mls/hr IV .Q10H [facility] Last Admin: 09/21/21 11:55 Dose: Not Given Metoprolol Tartrate (Metoprolol Tartrate 25 Mg Tablet) 25 mg PO BID@0900,2100 [facility] Last Admin: 09/21/21 09:01 Dose: 25 mg Morphine Sulfate (Morphine 4 Mg/Ml Sdv 1 Ml) 2 mg IVP Q4H PRN PRN Reason: SEVERE PAIN Nitroglycerin (Nitroglycerin 0.4 Mg Sublingual Tablet) 0.4 mg SUBLINGUAL Q5M PRN PRN Reason: CHEST PAIN Ondansetron HCl (Ondansetron 2 Mg/Ml Sdv 2 Ml) 4 mg IVP Q6H PRN PRN Reason: NAUSEA AND VOMITING Pantoprazole Sodium (Pantoprazole Dr 40 Mg Tablet) 40 mg PO DAILY [facility] Last Admin: 09/21/21 09:01 Dose: 40 mg Vitals/I&O/Wt Last Vital Signs Temp 98 F 09/21/21 12:00 Pulse 75 09/21/21 12:00 Resp 15 09/21/21 12:00 BP 137/83 09/21/21 12:00 Pulse Ox 95 09/21/21 12:00 O2 Del Method 09/20/21 19:30 O2 Flow Rate 4 09/19/21 16:30 09/20/21 09/21/21 09/21/21 22:59 06:59 14:59 Intake Total 1240 / 1490 1000 / 2490 Output Total 400 / 400 600 / 1000 400 / 400 Balance 840 / 1090 400 / 1490 -400 / -400 Weight last 48 hrs Weight 185 lb Physical Exam Narrative: GENERAL: The patient is alert and oriented times three. Not in any acute distress. HEENT: No significant pallor, icterus or lymphadenopathy.Oral cavity: There are no mucous membrane lesions. NECK: Trachea appears to be central. No masses noted. No JVD or thyromegaly appreciated. RESPIRATORY: Chest is symmetrical. No intercostals muscle retraction or any accessory muscle activation. There is no chest wall tenderness. Breath sounds are heard bilaterally. No rales or rhonchi heard. No evidence of any consolidation. BREASTS: Deferred. HEART: The heart sounds are normal. No S3 or S4. No significant murmurs. No pericardial rub ABDOMEN: No vessel pulsations or distention. No tenderness. No organomegaly appreciated. Bowel sounds are normally heard. : Deferred. RECTAL: Deferred. LYMPHATIC: No lymphadenopathy noted in the neck. EXTREMITIES: No hematoma bleeding from the arterial puncture site MUSCULOSKELETAL: No acute joint deformities or swelling SKIN: He has a small erythematous area on the hypothenar aspect of the right hand-possible rash, seems to be fading away. No other rashes are noted NEUROPSYCHIATRIC: The patient is alert and oriented x3. Appears to be in a good mood. No tremors or rigidity noted. Data : 09/21/21 05:30 09/21/21 05:30 Other Labs: Laboratory Last Values WBC 6.0 10^3/uL (4.0-10.0) 09/21/21 05:30 RBC 4.25 10^6/uL (4.1-5.3) 09/21/21 05:30 Hgb 12.6 g/dL (11.7-16.6) 09/21/21 05:30 Hct 38.7 % (42.0-52.0) L 09/21/21 05:30 MCV 91.1 fl (80-94) 09/21/21 05:30 MCH 29.6 pg (28.0-34.0) 09/21/21 05:30 MCHC 32.6 g/dL (30.0-36.0) 09/21/21 05:30 RDW 12.6 % (12.1-15.1) 09/21/21 05:30 Plt Count 223 10^3/cmm (130-400) 09/21/21 05:30 MPV 9.5 fL (7.4-10.4) 09/21/21 05:30 Neut % (Auto) 44.1 % 09/21/21 05:30 Lymph % (Auto) 36.7 % 09/21/21 05:30 [place] % (Auto) 15.9 % 09/21/21 05:30 Eos % (Auto) 2.0 % 09/21/21 05:30 Baso % (Auto) 1.0 % 09/21/21 05:30 Neut # (Auto) 2.65 10^3/uL (1.8-7.7) 09/21/21 05:30 Lymph # (Auto) 2.2 10^3/uL (0.8-4.8) 09/21/21 05:30 [place] # (Auto) 1.0 10^3/uL (0.2-0.9) H 09/21/21 05:30 Eos # (Auto) 0.1 10^3/uL (0.0-0.8) 09/21/21 05:30 Baso # (Auto) 0.1 10^3/uL (0.0-0.1) 09/21/21 05:30 Nucleated RBC % (auto) 0 % 09/21/21 05:30 Nucleated RBCs # 0.0 /100WBC 09/21/21 05:30 PT 12.50 SECONDS (12.1-14.9) 09/20/21 04:15 INR 0.91 (0.8-1.2) 09/20/21 04:15 APTT 27.4 SECONDS (23.9-36.7) 09/20/21 04:15 Sodium 137 mmol/L (136-145) 09/21/21 05:30 Potassium 4.0 mmol/L (3.5-5.1) 09/21/21 05:30 Chloride 105 mmol/L (98-107) 09/21/21 05:30 Carbon Dioxide 23 mmol/L (22-29) 09/21/21 05:30 Anion Gap 13.0 (5-19) 09/21/21 05:30 BUN 11 mg/dL (6-20) 09/21/21 05:30 Creatinine 0.6 mg/dL (0.7-1.2) L 09/21/21 05:30 GFR Calculation 138.4 mL/min (90-130) H 09/21/21 05:30 Glucose 122 mg/dL (65-115) H 09/21/21 05:30 Calculated Osmolality 285 mOsm/kg (285-295) 09/21/21 05:30 Calcium 8.0 mg/dL (8.5-10.5) L 09/21/21 05:30 Magnesium 1.8 mg/dL (1.7-2.3) 09/20/21 04:15 Total Bilirubin 0.3 mg/dL (0.15-1.2) 09/21/21 05:30 AST 18 U/L (0-40) 09/21/21 05:30 ALT 25 U/L (0-41) 09/21/21 05:30 Alkaline Phosphatase 110 IU/L (40-130) 09/21/21 05:30 Troponin T Baseline 17 ng/L (0-15) H 09/19/21 14:30 Troponin T 120 Minute 56.16 ng/L (0-15) H 09/19/21 16:58 Delta Troponin T 39.16 ABS# (0-10) H* 09/19/21 16:58 Troponin T Hi Sens 6Hr 68.89 ng/L (0-15) H 09/19/21 21:40 Troponin T Hi Sens 6Hr Delta 51.89 ng/L (0-12) H* 09/19/21 21:40 NT-Pro-B Natriuret Pep 537 pg/mL (0-125) H 09/19/21 21:40 Total Protein 6.3 g/dL (6.6-8.7) L 09/21/21 05:30 Albumin 3.6 g/dL (3.5-5.2) 09/21/21 05:30 Globulin 2.7 g/dL (1.3-4.6) 09/21/21 05:30 TSH 0.51 uIU/mL (0.27-4.20) 09/20/21 04:15 A&P Assessment and plan (1) Two-vessel coronary artery disease: Patient is status post PCI of the LAD and circumflex artery lesions. Currently seems to be stable. He may continue on the current medications. Status: Acute (2) NSTEMI (non-ST elevated myocardial infarction): As mentioned above. Continue taking the beta-tremaine, aspirin, Plavix, statin. Also may add a low-dose of nitrates namely Nitro-Bid 2.5 mg p.o. twice daily to the current medications. Status: Acute (3) Benign essential hypertension with target blood pressure below 140/90: The blood pressure is a stage II. I may add lisinopril 5 mg p.o. daily. Status: Acute (4) Tobacco dependency: Patient is strongly advised to quit smoking Status: Acute (5) Dyslipidemia: We will do a lipid profile on the blood in the lab. Continue the statin at the current dose Status: Acute Plan If the patient continues to remain stable, he may be discharged home from a cardiac standpoint. He will be seen by the nurse practitioner next week in the office. I may see him back in the office in 1 month. In the event of the patient developing any unusual chest pain, palpitations, SOB or any other new symptoms, advised to contact our office. Attestations Medical Necessity Statement*: Possible discharge home today Coding Level of Care Code Acute Nozzleman for Doc Fwnidia History Detailed Exam Detailed Medical Decision Making Moderate Complexity Diagnoses Two-vessel coronary artery disease I25.10 NSTEMI (non-ST elevated myocardial infarction) I21.4 Benign essential hypertension with target blood pressure below 140/90 I10 Tobacco dependency F17.200 Dyslipidemia E78.5
--- NOTE | 2021-09-21 13:50 | P.DS_ITS ---
Discharge Providers Date of Admission: 09/19/21 18:28 Date of Discharge: September 21, 2021 Attending Provider at Admission: Jose J Nj MD Attending Provider at Discharge: Jose J Nj MD Diagnoses at Discharge Discharge Diagnosis (1) Two-vessel coronary artery disease: Status: Inactive (2) NSTEMI (non-ST elevated myocardial infarction): Status: Inactive (3) Benign essential hypertension with target blood pressure below 140/90: Status: Inactive (4) Tobacco dependency: Status: Inactive (5) Dyslipidemia: Status: Inactive Reason for Visit Reason for Visit: CHEST PAIN Hospital Course Hospital Course HPI: Javid Mata is a 56 year old male with no significant past medical history, except for extensive smoking history smokes a pack a day and 2 days, has been smoking since he was 12 years of age, came in with chief complaint of substernal chest pain radiating to LT arms , described as burning sensations, worse with any form of exertion, relieved with rest ,started 4 days back, accompanied with tingling in both the hands Currently denies any, shortness of breath fever cough, nausea, vomiting palpitation dizziness, sweating. Upon arrival in the ER he was worked up for above-mentioned complaint: Pertinent imaging studies: X-ray chest: No acute finding CTA chest:No pulm embolism no aortic dissection EKG: Sinus rhythm nonspecific T wave abnormality. Pertinent labs: WBC 8.4, H&H:15/44 , PLT : 301, serum sodium 142 serum potassium 3.9, BUN and serum creatinine 14 and 0.6 , AST ALT alk phos normal Troponin: 17-56- 68, Hospital course: Was admitted for management of NSTEMI: 2D echo showed: Normal LV size with borderline low ejection fraction 50 to 55%. Mild diffuse hypokinesia of the mid and apical septum, anteroseptum and the LV apex.Grade I/IV diastolic dysfunction (abnormal relaxation filling pattern), normal to mildly elevated filling pressures. Trace tricuspid valve regurgitation. Minimally thickened aortic valve. There is no pericardial effusion. There are no intracardiac masses. Was On ACS protocol (aspirin statin beta-tremaine, Nitropaste, sublingual nitro as needed, therapeutic anticoagulation. Underwent cardiac cath: high-grade stenosis in the mid LAD and this first and second obtuse marginal branches of the circumflex artery.?He had PTCA and PCI OF LAD and first OM1 lesions.?OM2: PTCA Only. Patient responded well to medical management and was discharged on aspirin Plavix statin beta-tremaine, lisinopril.Patient will continue to see cardiology as outpatient. Physical Exam Const: COMMON NORMALS: patient oriented x3 HENMT: COMMON NORMALS: normocephalic, atraumatic, hearing grossly normal bilaterally and external ears normal HEAD & SCALP: normocephalic and atraumatic EXTERNAL EAR: Yes external ears normal Resp: COMMON NORMALS: normal respiratory effort, No retractions, No use of accessory muscles and clear to auscultation bilaterally EFFORT & INSPECTION: Yes symmetric chest movement AUSCULTATION: clear to auscultation bilaterally Cardio: COMMON NORMALS: regular rate, regular rhythm, S1 normal heart sound present, S2 normal heart sound present, No gallops present (Cardio), No murmurs present (Cardio), No rub (Cardio) and Peripheral pulses 2+ throughout RATE: regular rate RHYTHM: regular rhythm HEART SOUNDS: S1 normal heart sound present and S2 normal heart sound present PERIPHERAL PULSES: Peripheral pulses 2+ throughout GI: COMMON NORMALS: Normal to inspection, nondistended, normoactive bowel sounds present, Soft to palpation, non-tender, No hepatosplenomegaly present and no masses AUSCULTATION: Yes normoactive bowel sounds PALPATION: Yes Soft to palpation and Yes No hepatosplenomegaly present RECTAL EXAM: Yes deferred Extremity: COMMON NORMALS: no clubbing, cyanosis or edema and no pedal edema Neuro: COMMON NORMALS: patient oriented x3 Discharge Data Studies Completed and Pending Completed Studies During Hospitalization Category Date Time Status CT angio chest PE protcl [id number] Stat Cat Scan 09/19/21 16:31 Completed INSPECTOR BICYCLE request for service Routine Exams 09/20/21 11:12 Completed XR chest 1V portable [id number] Stat Exams 09/19/21 14:25 Completed CV. echo complete* [id number] Routine Ultrasound 09/19/21 18:30 Completed Pending at discharge Category Date Time Status Complete Blood Count w/Auto AM LABS Lab 09/22/21 04:00 Ordered Comprehensive Metabolic Panel AM LABS Lab 09/22/21 04:00 Ordered Lipid Panel Routine Lab 09/21/21 13:35 Ordered Radiology Impressions Chest X-Ray 09/19/21 14:25 IMPRESSION: No acute findings. Chest CTA 09/19/21 16:31 IMPRESSION: 1. No evidence of pulmonary embolism or other acute abnormality. 2. Old granulomatous disease. Laboratory Results WBC 6.0 10^3/uL (4.0-10.0) 09/21/21 05:30 RBC 4.25 10^6/uL (4.1-5.3) 09/21/21 05:30 Hgb 12.6 g/dL (11.7-16.6) 09/21/21 05:30 Hct 38.7 % (42.0-52.0) L 09/21/21 05:30 MCV 91.1 fl (80-94) 09/21/21 05:30 MCH 29.6 pg (28.0-34.0) 09/21/21 05:30 MCHC 32.6 g/dL (30.0-36.0) 09/21/21 05:30 RDW 12.6 % (12.1-15.1) 09/21/21 05:30 Plt Count 223 10^3/cmm (130-400) 09/21/21 05:30 MPV 9.5 fL (7.4-10.4) 09/21/21 05:30 Neut % (Auto) 44.1 % 09/21/21 05:30 Lymph % (Auto) 36.7 % 09/21/21 05:30 [place] % (Auto) 15.9 % 09/21/21 05:30 Eos % (Auto) 2.0 % 09/21/21 05:30 Baso % (Auto) 1.0 % 09/21/21 05:30 Neut # (Auto) 2.65 10^3/uL (1.8-7.7) 09/21/21 05:30 Lymph # (Auto) 2.2 10^3/uL (0.8-4.8) 09/21/21 05:30 [place] # (Auto) 1.0 10^3/uL (0.2-0.9) H 09/21/21 05:30 Eos # (Auto) 0.1 10^3/uL (0.0-0.8) 09/21/21 05:30 Baso # (Auto) 0.1 10^3/uL (0.0-0.1) 09/21/21 05:30 Nucleated RBC % (auto) 0 % 09/21/21 05:30 Nucleated RBCs # 0.0 /100WBC 09/21/21 05:30 PT 12.50 SECONDS (12.1-14.9) 09/20/21 04:15 INR 0.91 (0.8-1.2) 09/20/21 04:15 APTT 27.4 SECONDS (23.9-36.7) 09/20/21 04:15 Sodium 137 mmol/L (136-145) 09/21/21 05:30 Potassium 4.0 mmol/L (3.5-5.1) 09/21/21 05:30 Chloride 105 mmol/L (98-107) 09/21/21 05:30 Carbon Dioxide 23 mmol/L (22-29) 09/21/21 05:30 Anion Gap 13.0 (5-19) 09/21/21 05:30 BUN 11 mg/dL (6-20) 09/21/21 05:30 Creatinine 0.6 mg/dL (0.7-1.2) L 09/21/21 05:30 GFR Calculation 138.4 mL/min (90-130) H 09/21/21 05:30 Glucose 122 mg/dL (65-115) H 09/21/21 05:30 Calculated Osmolality 285 mOsm/kg (285-295) 09/21/21 05:30 Calcium 8.0 mg/dL (8.5-10.5) L 09/21/21 05:30 Magnesium 1.8 mg/dL (1.7-2.3) 09/20/21 04:15 Total Bilirubin 0.3 mg/dL (0.15-1.2) 09/21/21 05:30 AST 18 U/L (0-40) 09/21/21 05:30 ALT 25 U/L (0-41) 09/21/21 05:30 Alkaline Phosphatase 110 IU/L (40-130) 09/21/21 05:30 Troponin T Baseline 17 ng/L (0-15) H 09/19/21 14:30 Troponin T 120 Minute 56.16 ng/L (0-15) H 09/19/21 16:58 Delta Troponin T 39.16 ABS# (0-10) H* 09/19/21 16:58 Troponin T Hi Sens 6Hr 68.89 ng/L (0-15) H 09/19/21 21:40 Troponin T Hi Sens 6Hr Delta 51.89 ng/L (0-12) H* 09/19/21 21:40 NT-Pro-B Natriuret Pep 537 pg/mL (0-125) H 09/19/21 21:40 Total Protein 6.3 g/dL (6.6-8.7) L 09/21/21 05:30 Albumin 3.6 g/dL (3.5-5.2) 09/21/21 05:30 Globulin 2.7 g/dL (1.3-4.6) 09/21/21 05:30 TSH 0.51 uIU/mL (0.27-4.20) 09/20/21 04:15 Vitals Last Vital Signs Temp 98 F 09/21/21 12:00 Pulse 75 09/21/21 12:00 Resp 15 09/21/21 12:00 BP 137/83 09/21/21 12:00 Pulse Ox 95 09/21/21 12:00 O2 Del Method 09/20/21 19:30 O2 Flow Rate 4 09/19/21 16:30 Discharge Plan Discharge Patient Disposition: Home Condition: Stable Prescriptions: New atorvastatin 40 mg Tablet 40 mg PO DAILY 30 Days Qty: 30 3RF Nitro-Time 2.5 mg Capsule, Extended Release 2.5 mg PO BID 30 Days Qty: 60 3RF clopidogrel 75 mg Tablet 75 mg PO DAILY 30 Days Qty: 30 3RF aspirin 81 mg Tablet,Delayed Release (Dr/Ec) 81 mg PO DAILY 30 Days Qty: 30 3RF nitroglycerin 0.4 mg Tablet, Sublingual 0.4 mg sublingual Q5M PRN (Reason: Chest Pain) 30 Days Qty: 30 0RF lisinopril 5 mg Tablet 5 mg PO DAILY 30 Days Qty: 30 3RF metoprolol tartrate 25 mg Tablet 25 mg PO BID@0900,2100 30 Days Qty: 60 3RF Discharge Orders: Discharge Order (Routine); Ordered 09/21/21 Ordered By: Jose J Nj Referrals: Rolo Cohen MD [Physician] - 10/21/21 10:15 am (You have a follow up appointment with Dr. Vincent on October 21 at 10:15 if you are unable to keep this appointment please contact providers office to reschedule.) Blanca De Santiago FNP [Nurse Practitioner] - 09/28/21 9:15 am (You have a follow up appointment with Blanca KING on September 28 at 9:15 if you are unable to keep this appointment please contact providers office to reschedule.) Discharge Diet: Cardiac Discharge Activity: Resume usual activity Patient Instructions: Coronary Angioplasty (DC), Heart Healthy Diet (GEN), Opioid Safety, Post Angiogram Home Care Instructions Discharge Attestations Time Spent in Discharge Care*: greater than 30 min Specific Discharge Activities: educating patient, educating and/or supporting family/caregiver, discussing with pcp/other providers, discussing with employment case manager/social workers/dc planners, documenting/other paperwork and evaluating patient/reviewing data Status at Discharge: Cognitive status at discharge: cognitively intact , Behavioral status at discharge: cooperative , Quality Metrics Clinical Quality Measures [ No reported AMI, CVA or VTE this stay] Coding Level of Care Code Acute Chg FW DC note Diagnoses Two-vessel coronary artery disease I25.10 NSTEMI (non-ST elevated myocardial infarction) I21.4 Benign essential hypertension with target blood pressure below 140/90 I10 Tobacco dependency F17.200 Dyslipidemia E78.5
[2021-09-21 14:07] LABS: Chol HDL Ratio 6.39 mg/dL (1.0-5.00); Cholesterol 179 mg/dL (0-200); HDL Cholesterol 28 mg/dL (60-100); LDL Cholesterol Calculated 106 mg/dL (50-129); LDL HDL Ratio 3.79 RATIO (0.00-3.22); Triglycerides 223 mg/dL (0-150)
[2021-09-21 16:06] VITALS: BP 137/83; PULSE 75; RESP 15; TEMP 36.6; O2SAT 95
--- NOTE | 2021-09-21 16:08 | PC.NURSE ---
Discharge Note Patient discharged to home via private vehicle accompanied by self. Discharge instructions reviewed with patient and/or auto claim representative. Mobile pharmacy medications and/or prescriptions provided. Belongings/home medications returned.
== END 2021-09-21 16:07 | disposition home or self-care (01) | DRG 247 ==
LOC: ER 20:30 → ER IP 09-20 05:34 → CSU 09-20 12:06 → MEDSURG 09-20 18:28
PROVIDERS: Internal Medicine Cardiovascular Disease; Admitting Provider Internal Medicine; Emergency Provider Family Medicine; Visit Provider Internal Medicine
PROC: 027135Z Dilation of Coronary Artery, Two Arteries with Two Drug-eluting Intraluminal Devices, Percutaneous Approach (ICD-10-PCS; principal; 2021-09-20 14:00)
PROC: 027135Z Dilation of Coronary Artery, Two Arteries with Two Drug-eluting Intraluminal Devices, Percutaneous Approach (ICD-10-PCS; 2021-09-20 14:00)
DX: I21.4 Non-ST elevation (NSTEMI) myocardial infarction (principal); F17.200 Nicotine dependence, unspecified, uncomplicated; N40.0 Benign prostatic hyperplasia without lower urinary tract symptoms; R93.1 Abnormal findings on diagnostic imaging of heart and coronary circulation; I25.10 Atherosclerotic heart disease of native coronary artery without angina pectoris; E78.5 Hyperlipidemia, unspecified
CPT/HCPCS: 36415; 71045; 71275; 80053; 80061; 83735; 83880; 84443; 84484; 85025; 85610; 85730; 93005; 93306; 93452; 93458; 96360; 96365; 96372; 96375; 99152; 99153; 99291; C1725; C1769; C1874; C1887; C1894; C9600; C9601; J1644; J1650; J2250; J2270; J2405; J3010; J3490; J7030; Q9967

== ENCOUNTER 2021-10-12 06:31 | Emergency (ER) | payer SELFPAY ==
[2021-10-12 06:32] VITALS: BP 162/80; PULSE 63; RESP 22; TEMP 36.7; O2SAT 99; BMI 27.3
--- NOTE | 2021-10-12 06:38 | ECG_ITS ---
[facility] Test Date: 2021-10-12 Pat Name: Javid Mata Department: Room: Gender: Male [employer] Technician: : 1965 Requested By: Ramin Geller Order Number: [id number] Eveline MD: Eze Vincent M.D. Measurements Intervals [place] Rate: 63 P: 21 FL: 159 QRS: 34 QRSD: 97 T: 70 QT: 414 QTc: 424 Interpretive Statements SINUS RHYTHM Compared to ECG 09/21/2021 11:05:47 Myocardial infarct finding no longer present T-wave abnormality no longer present Possible ischemia no longer present Electronically Signed On 10-12-2021 16:28:57 CDT by Eze Vincent M.D. [id number]
--- NOTE | 2021-10-12 06:38 | XRR_ITS ---
PROCEDURE INFORMATION: Exam: XR Chest Exam date and time: 10/12/2021 6:49 AM Age: 56 years old Clinical indication: Angina and shortness of breath; Prior surgery; Surgery date: 6+ months; Surgery type: SOB chest pain since 2 am TECHNIQUE: Imaging protocol: Radiologic exam of the chest. Views: 1 view. COMPARISON: CR XR chest 1V portable [id number] 09/19/2021 2:31 PM FINDINGS: Lungs: Small benign calcified granulomas are present in the right lung. Otherwise the lungs are clear. Pleural spaces: Unremarkable. No pleural effusion. No pneumothorax. Heart/Mediastinum: Unremarkable. No cardiomegaly. Bones/joints: Unremarkable. XR/XR chest 1V portable [id number] IMPRESSION: No acute abnormality.
--- NOTE | 2021-10-12 06:46 | ED_ITS ---
HPI - Chest Pain General: Chief Complaint: Chest Pain Stated Complaint: CP Time Seen by Provider: 10/12/21 06:33 Source: patient Mode of arrival: EMS Limitations: no limitations History of Present Illness: 56-year-old male presents emergency room with complaints of chest pain. Patient had a NSTEMI earlier this month for which he underwent coronary angiography he had a mid LAD, and the first and second marginal branches. He had intervention at all 3 stenting at the mid LAD and the first obtuse marginal. The second obtuse marginal branch just had balloon angioplasty. Had not been having any pain until it woke him up earlier this morning he did take 1 nitro without any relief he has lower sternal epigastric discomfort that radiates into his right upper quadrant. He has been very nauseous he is not had any vomiting no diarrhea. MD complaint: chest pain Pertinent past history: coronary artery disease Onset (ago): hour(s) Timing of current episode: episodic Prior episodes: Yes Onset: during rest Pain location: substernal and epigastric Pain radiation: other (Right upper quadrant) Severity: moderate Quality: sharp Relieving factors: nothing Exacerbating factors: nothing Associated symptoms: Reports abdominal pain; Deny diaphoresis, dyspnea, fever(s), leg edema, nausea, palpitations, sense of impending doom, syncope or vomiting Treatment prior to arrival: none Review of Systems Const: Denies: fever(s), chills, fatigue, malaise or diaphoresis ENMT: Denies: throat pain, ear or mastoid pain, nasal discharge or nasal congestion Card: Reports: chest pain; Denies: palpitations or syncope Resp: Denies: dyspnea GI: Reports: abdominal pain and GI cramping; Denies: nausea, vomiting, hematemesis, coffee ground emesis or bloating : Denies: flank pain, dysuria, urinary frequency or urinary urgency Skin/Breast: Denies: rash or pruritus PFSH ED PFSH: Medical History Abnormal echocardiogram Benign essential hypertension with target blood pressure below 140/90 Dyslipidemia NSTEMI (non-ST elevated myocardial infarction) Tobacco dependency Two-vessel coronary artery disease Surgical History History of hemorrhoidectomy History of hernia repair Family History Other Cancer Social History Smoking and tobacco status: current every day smoker Alcohol intake: former Physical Exam Const: COMMON NORMALS: no acute distress GENERAL APPEARANCE: cooperative and comfortable ORIENTATION/CONSCIOUSNESS: Yes awake, Yes oriented to person, Yes oriented to place and Yes oriented to time HENMT: COMMON NORMALS: normocephalic, atraumatic and hearing grossly normal bilaterally HEAD & SCALP: normocephalic and atraumatic Resp: COMMON NORMALS: normal respiratory effort, No retractions, No use of accessory muscles and clear to auscultation bilaterally AUSCULTATION: clear to auscultation bilaterally Cardio: COMMON NORMALS: regular rate, regular rhythm and No murmurs present (Cardio) RATE: regular rate RHYTHM: regular rhythm GI: COMMON NORMALS: No hepatosplenomegaly present AUSCULTATION: Yes normoactive bowel sounds PALPATION: Yes Tenderness to palpation present (GI) (Epigastric right upper quadrant), No Guarding due to palpation present (GI) and Yes No hepatosplenomegaly present Extremity: COMMON NORMALS: normal to inspection, capillary refill normal, no clubbing, cyanosis or edema, no calf tenderness and no pedal edema Neuro: SENSORIUM/ORIENTATION: Yes oriented to person, Yes oriented to place and Yes oriented to time Skin: COMMON NORMALS: no rashes or lesions noted GENERAL SKIN EXAM: no rashes or lesions noted Course Vital Signs: Vital signs: Vital Signs Temperature 98.0 F 10/12/21 06:32 Pulse Rate 66 10/12/21 13:42 Respiratory Rate 17 10/12/21 13:42 Blood Pressure 177/92 10/12/21 13:42 Pulse Oximetry 95 10/12/21 13:42 Oxygen Delivery Me thod 10/12/21 06:32 MDM - Chest Pain Medical Decision Making Reviewed previous cardiac catheterization and discussed Dr. Jaimes. Given length time with symptoms and normal EKGs and normal cardiac enzymes we both feel this is not cardiac related. Liver enzymes are normal this could be biliary colic visibility dyskinesia at this point he does not have any signs of acute cholecystitis that are convincing on exam or endorsed by laboratory work. We will start him on proton pump inhibitor and have him follow-up with primary care over the next few days if he persists or worsens may need to have further evaluation including possible EGD and HIDA scan Medical Records I reviewed the patient's medical records. Lab Data I reviewed the patient's lab results. : 10/12/21 06:30 10/12/21 06:30 Radiology Impressions Chest X-Ray 10/12/21 06:38 IMPRESSION: No acute abnormality. Laboratory Results WBC 7.2 10^3/uL (4.0-10.0) 10/12/21 06:30 RBC 4.97 10^6/uL (4.1-5.3) 10/12/21 06:30 Hgb 14.8 g/dL (11.7-16.6) 10/12/21 06:30 Hct 44.6 % (42.0-52.0) 10/12/21 06:30 MCV 89.7 fl (80-94) 10/12/21 06:30 MCH 29.8 pg (28.0-34.0) 10/12/21 06:30 MCHC 33.2 g/dL (30.0-36.0) 10/12/21 06:30 RDW 12.2 % (12.1-15.1) 10/12/21 06:30 Plt Count 326 10^3/cmm (130-400) 10/12/21 06:30 MPV 9.2 fL (7.4-10.4) 10/12/21 06:30 Neut % (Auto) 51.4 % 10/12/21 06:30 Lymph % (Auto) 33.4 % 10/12/21 06:30 [place] % (Auto) 10.4 % 10/12/21 06:30 Eos % (Auto) 3.7 % 10/12/21 06:30 Baso % (Auto) 0.8 % 10/12/21 06:30 Neut # (Auto) 3.70 10^3/uL (1.8-7.7) 10/12/21 06:30 Lymph # (Auto) 2.4 10^3/uL (0.8-4.8) 10/12/21 06:30 [place] # (Auto) 0.8 10^3/uL (0.2-0.9) 10/12/21 06:30 Eos # (Auto) 0.3 10^3/uL (0.0-0.8) 10/12/21 06:30 Baso # (Auto) 0.1 10^3/uL (0.0-0.1) 10/12/21 06:30 Nucleated RBC % (auto) 0 % 10/12/21 06:30 Nucleated RBCs # 0.0 /100WBC 10/12/21 06:30 Sodium 142 mmol/L (136-145) 10/12/21 06:30 Potassium 4.4 mmol/L (3.5-5.1) 10/12/21 06:30 Chloride 105 mmol/L (98-107) 10/12/21 06:30 Carbon Dioxide 28 mmol/L (22-29) 10/12/21 06:30 Anion Gap 13.4 (5-19) 10/12/21 06:30 BUN 15 mg/dL (6-20) 10/12/21 06:30 Creatinine 0.7 mg/dL (0.7-1.2) 10/12/21 06:30 GFR Calculation 115.8 mL/min (90-130) 10/12/21 06:30 Glucose 94 mg/dL (65-115) 10/12/21 06:30 Calculated Osmolality 295 mOsm/kg (285-295) 10/12/21 06:30 Calcium 9.8 mg/dL (8.5-10.5) 10/12/21 06:30 Total Bilirubin 0.2 mg/dL (0.15-1.2) 10/12/21 06:30 AST 18 U/L (0-40) 10/12/21 06:30 ALT 25 U/L (0-41) 10/12/21 06:30 Alkaline Phosphatase 133 U/L (40-130) H 10/12/21 06:30 Troponin T Baseline 6 ng/L (0-15) 10/12/21 06:30 Troponin T 120 Minute 6.00 ng/L (0-15) 10/12/21 08:40 Delta Troponin T 0 ABS# (0-10) 10/12/21 08:40 Total Protein 6.9 g/dL (6.6-8.7) 10/12/21 06:30 Albumin 4.3 g/dL (3.5-5.2) 10/12/21 06:30 Globulin 2.6 g/dL (1.3-4.6) 10/12/21 06:30 Discharge Plan Discharge Patient Disposition: Home Clinical Impression: Atypical chest pain, GERD (gastroesophageal reflux disease) Condition: Stable Prescriptions: New Protonix 40 mg tablet,delayed release (DR/EC) 40 mg PO BID Qty: 60 0RF No Action atorvastatin 40 mg Tablet 40 mg PO DAILY 30 Days Qty: 30 3RF Nitro-Time 2.5 mg Capsule, Extended Release 2.5 mg PO BID 30 Days Qty: 60 3RF clopidogrel 75 mg Tablet 75 mg PO DAILY 30 Days Qty: 30 3RF aspirin 81 mg Tablet,Delayed Release (Dr/Ec) 81 mg PO DAILY 30 Days Qty: 30 3RF nitroglycerin 0.4 mg Tablet, Sublingual 0.4 mg sublingual Q5M PRN (Reason: Chest Pain) 30 Days Qty: 30 0RF lisinopril 5 mg Tablet 5 mg PO DAILY 30 Days Qty: 30 3RF metoprolol tartrate 25 mg Tablet 25 mg PO BID@0900,2100 30 Days Qty: 60 3RF Discharge Orders: Discharge ED (Routine); Ordered 10/12/21 Ordered By: Ramin Armando Discharge Diet: Usual diet Discharge Activity: Resume usual activity Patient Instructions: Opioid Safety Activity Restrictions/Additional Instructions: Continue current medications. Start Protonix 40 mg twice daily. 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 Coding Level of Care Code ED Grants Specialist for Doc Fwd Exam Detailed
[2021-10-12 06:48] LABS: Basophils # 0.1 10^3/uL (0.0-0.1); Basophils % 0.8 %; Eosinophils # 0.3 10^3/uL (0.0-0.8); Eosinophils % 3.7 %; Hematocrit 44.6 % (42.0-52.0); Hemoglobin 14.8 g/dL (11.7-16.6); Lymphocytes # 2.4 10^3/uL (0.8-4.8); Lymphocytes % 33.4 %; Mean Corpuscular HGB Conc 33.2 g/dL (30.0-36.0); Mean Corpuscular Hemoglobin 29.8 pg (28.0-34.0); Mean Corpuscular Volume 89.7 fl (80-94); Mean Platelet Volume 9.2 fL (7.4-10.4); Monocytes # 0.8 10^3/uL (0.2-0.9); Monocytes % 10.4 %; Neutrophils % 51.4 %; Nucleated Red Blood Cells % 0 %; Platelet Count 326 10^3/cmm (130-400); Red Blood Count 4.97 10^6/uL (4.1-5.3); Red Cell Distribution Width 12.2 % (12.1-15.1); White Blood Count 7.2 10^3/uL (4.0-10.0)
[2021-10-12] MEDS: aspirin 81 mg Chew Tablet 324 MG PO (06:52)
[2021-10-12 07:06] LABS: Alanine Aminotransferase 25 U/L (0-41); Albumin Level 4.3 g/dL (3.5-5.2); Alkaline Phosphatase 133 U/L (40-130); Anion Gap 13.4 (5-19); Aspartate Amino Transferase 18 U/L (0-40); Blood Urea Nitrogen 15 mg/dL (6-20); Calcium 9.8 mg/dL (8.5-10.5); Carbon Dioxide 28 mmol/L (22-29); Chloride 105 mmol/L (98-107); Creatinine Clr Calc Pharmacy 119.9068; Globulin 2.6 g/dL (1.3-4.6); Glomerular Filtration Rate 115.8 mL/min (90-130); Glucose 94 mg/dL (65-115); Osmolality Calculated 295 mOsm/kg (285-295); Potassium 4.4 mmol/L (3.5-5.1); Sodium 142 mmol/L (136-145); Total Bilirubin 0.2 mg/dL (0.15-1.2); Total Protein 6.9 g/dL (6.6-8.7)
[2021-10-12 07:12] LABS: Troponin(5th) Baseline 6 ng/L (0-15)
--- NOTE | 2021-10-12 07:25 | PC.NURSE ---
pt resting in bed, reports continued epigastric chest pain rated 8/10. Denies nausea. lung sounds clear bilat. speech clear, speaking in complete sentences without difficulty. IV flushes easily with good blood return
--- NOTE | 2021-10-12 08:24 | PC.NURSE ---
pt updated on plan of care. pt requesting his daughter, Carol Tang be called and notified of disposition. Carol: [phone].
--- NOTE | 2021-10-12 08:38 | ECG_ITS ---
[facility] Test Date: 2021-10-12 Pat Name: Javid Mata Department: Room: Gender: Male [employer]: : [id number] Requested By: Ramin Geller Order Number: [id number] Eveline MD: Eze Vincent M.D. Measurements Intervals [place] Rate: 55 P: -16 VA: 155 QRS: 78 QRSD: 99 T: 135 QT: 429 QTc: 413 Interpretive Statements SINUS BRADYCARDIA INFERIOR MYOCARDIAL INFARCTION , PROBABLY OLD [40+ ms Q WAVE AND/OR ST/T ABNORMALITY IN II/aVF] Compared to ECG 09/21/2021 11:05:47 Sinus rhythm no longer present T-wave abnormality no longer present Possible ischemia no longer present Myocardial infarct finding still present Electronically Signed On 10-12-2021 16:34:33 CDT by Eze Vincent M.D. [email or web address]
[2021-10-12 09:44] LABS: Troponin 5 2HR Delta 0 ABS# (0-10)
[2021-10-12] MEDS: lidocaine 2% viscous 15 ML, aluminum-mag hydrox-simethicon 30 ML, sucralfate oral liq 1 GM PO (10:34)
--- NOTE | 2021-10-12 11:45 | PC.NURSE ---
entered room to discharge pt. pt reports pain had returned and does not agree with GERD diagnosis. Pt requesting to speak with physician prior to discharge, physician notified and to bedside. new orders received for [facility].
[2021-10-12] MEDS: ondansetron 2 mg/ML SDV 2 mL 4 MG IVP (11:52)
[2021-10-12 12:39] VITALS: RESP 22; O2SAT 98
[2021-10-12] MEDS: HYDROmorphone 1 mg/mL INJ 1 mL 0.25 MG IVP (12:39)
[2021-10-12 13:42] VITALS: BP 177/92; PULSE 66; RESP 17; O2SAT 95
== END 2021-10-12 13:44 | disposition home or self-care (01) ==
PROVIDERS: Emergency Provider Family Medicine
DX: R07.89 Other chest pain (principal); K21.9 Gastro-esophageal reflux disease without esophagitis; I10 Essential (primary) hypertension; I25.2 Old myocardial infarction; F17.200 Nicotine dependence, unspecified, uncomplicated
CPT/HCPCS: 36415; 71045; 80053; 84484; 85025; 93005; 96374; 96375; 99285; J1170; J2405

== ENCOUNTER 2022-05-24 10:26 | Emergency (ER) | payer SELFPAY ==
[2022-05-24 10:40] VITALS: BP 157/92; PULSE 70; RESP 20; TEMP 36.4; O2SAT 95
--- NOTE | 2022-05-24 10:42 | ED_ITS ---
Documented by User: ADENIKE Peralta 05/25/22 07:43 HPI - Abdominal Pain General: Chief Complaint: Abdominal Pain Stated Complaint: ABDOMINAL PAIN Time Seen by Provider: 05/24/22 10:27 History of Present Illness: Patient is a 57-year-old male comes to the ED via EMS with abdominal pain. Past surgical history of right inguinal hernia repair. Abdominal pain started approximately 4 days ago. Nausea/vomiting and abdominal pain worsens whenever he eats. He rates his pain currently a 10 out of 10. All of his pain is located in the right upper quadrant of his abdomen. Denies any other worsening or improving factors. No bowel movement and decreased urine output over the last couple days because he has not had much to eat or drink since symptoms sta rted. Denies any fevers, diarrhea, chest pain, shortness of breath. Patient received dose of IV Zofran and fentanyl by EMS while in route. Associated Symptoms: Reports nausea and vomiting; Denies chills, constipation, diarrhea, dysuria, fever(s), hematochezia and hematuria Review of Systems Const: Denies: fever(s), chills or fatigue Eyes: Denies: change in vision or eye discomfort ENMT: Denies: throat pain, odynophagia, nasal discharge or nasal congestion Card: Denies: chest pain, palpitations, edema, swelling of feet/ankles, dyspnea on exertion or orthopnea Resp: Denies: dyspnea, productive cough or non-productive cough GI: Reports: abdominal pain, nausea and vomiting; Denies: diarrhea, constipation or hematochezia : Denies: flank pain, difficulty urinating, dysuria or hematuria Musc: Denies: neck pain, back pain or extremity swelling Skin/Breast: Denies: rash or new lesions Neuro: Denies: headache(s), numbness in extremities or weakness in extremities PFSH ED PFSH: Medical History (Updated 06/01/22 @ 00:01 by BON Navarro) Abnormal echocardiogram Benign essential hypertension with target blood pressure below 140/90 Dyslipidemia NSTEMI (non-ST elevated myocardial infarction) Tobacco dependency Two-vessel coronary artery disease Surgical History (Updated 06/01/22 @ 12:46 by Talita Cleveland RN) History of hemorrhoidectomy History of hernia repair Family History Other Cancer Social History Smoking and tobacco status: current every day smoker Alcohol intake: former Physical Exam Const: COMMON NORMALS: patient oriented x3 and alert HENMT: COMMON NORMALS: normocephalic HEAD & SCALP: normocephalic MOUTH: Normal oral and palatal mucosa present THROAT: posterior oropharynx normal and uvula midline Neck/C-Spine: COMMON NORMALS: supple GENERAL: Yes normal visual inspection Resp: COMMON NORMALS: normal respiratory effort, No retractions, No use of accessory muscles and clear to auscultation bilaterally AUSCULTATION: clear to auscultation bilaterally Cardio: COMMON NORMALS: regular rate, regular rhythm, S1 normal heart sound present, S2 normal heart sound present, No gallops present (Cardio), No clicks present (Cardio), No murmurs present (Cardio) and Peripheral pulses 2+ throughout RATE: regular rate RHYTHM: regular rhythm HEART SOUNDS: S1 normal heart sound present and S2 normal heart sound present PERIPHERAL PULS ES: Peripheral pulses 2+ throughout GI: COMMON NORMALS: Normal to inspection, nondistended, normoactive bowel sounds present, Soft to palpation and no masses PALPATION: Yes Soft to palpation and Yes Tenderness to palpation present (GI) Details: RUQ (Positive Trinidad's sign) : COMMON NORMALS: Yes no CVA tenderness BLADDER/KIDNEY EXAM: Yes no CVA tenderness Back/Pelvis: COMMON NORMALS: no CVA tenderness Extremity: COMMON NORMALS: normal to inspection Neuro: COMMON NORMALS: patient oriented x3 SENSORIUM/ORIENTATION: Yes alert GAIT: Yes Normal gait present Skin: GENERAL SKIN EXAM: dry skin Course Vital Signs: Vital signs: Vital Signs Temperature 97.5 F L 05/24/22 10:40 Pulse Rate 70 05/24/22 10:40 Respiratory Rate 20 H 05/24/22 10:40 Blood Pressure 157/92 05/24/22 10:40 Pulse Oximetry 95 05/24/22 10:40 Oxygen Delivery Me thod Room Air 05/24/22 10:40 MDM - Abdominal Pain Medical Decision Making Patient is a 57-year-old male comes to the ED via EMS with abdominal pain. Past surgical history of right inguinal hernia repair. Abdominal pain started approximately 4 days ago. Nausea/vomiting and abdominal pain worsens whenever he eats. He rates his pain currently a 10 out of 10. All of his pain is located in the right upper quadrant of his abdomen. Denies any other worsening or improving factors. No bowel movement and decreased urine output over the last couple days because he has not had much to eat or drink since symptoms started. Denies any fevers, diarrhea, chest pain, shortness of breath. Vital stable. Exam shows some right upper quadrant abdominal tenderness and positive Trinidad sign rest of exam is benign. Labs are all unremarkable patient's white count is 10. Ultrasound gallbladder shows some stones. Patient was given a liter of IV fluids, pain and nausea meds. His symptoms improved greatly and were controlled here in the ED. He was able to tolerate p.o. fluids. He was stable to go home and try outpatient treatment and I placed an order with case management for patient be referred to general surgery for follow-up on gallstones. He was sent home with a prescription for pain med and nausea med. Told to do a clear liquid diet for the next 24 hours and slowly advance diet as tolerated. Strict return to ED precautions given. Patient understood and agreed with plan. Lab Data I reviewed the patient's lab results. 05/24/22 10:05 05/24/22 10:05 Labs/Radiology: Radiology Impressions Gallbladder Ultrasound 05/24/22 10:53 IMPRESSION: 1. Abnormal gallbladder. Contracted gallbladder with wall thickening and highly suspicious for stones in the gallbladder neck. Recommend surgical evaluation. 2. No bile duct dilatation. 3. Heterogeneous liver, hepatic steatosis. Laboratory Results WBC 10.4 10^3/uL (4.0-10.0) H 05/24/22 10:05 RBC 5.23 10^6/uL (4.1-5.3) 05/24/22 10:05 Hgb 15.0 g/dL (11.7-16.6) 05/24/22 10:05 Hct 44.9 % (42.0-52.0) 05/24/22 10:05 MCV 85.9 fl (80-94) 05/24/22 10:05 MCH 28.7 pg (28.0-34.0) 05/24/22 10:05 MCHC 33.4 g/dL (30.0-36.0) 05/24/22 10:05 RDW 11.9 % (12.1-15.1) L 05/24/22 10:05 Plt Count 394 10^3/cmm (130-400) 05/24/22 10:05 MPV 8.5 fL (7.4-10.4) 05/24/22 10:05 Neut % (Auto) 63.1 % 05/24/22 10:05 Lymph % (Auto) 27.6 % 05/24/22 10:05 [place] % (Auto) 7.0 % 05/24/22 10:05 Eos % (Auto) 1.4 % 05/24/22 10:05 Baso % (Auto) 0.5 % 05/24/22 10:05 Neut # (Auto) 6.58 10^3/uL (1.8-7.7) 05/24/22 10:05 Lymph # (Auto) 2.9 10^3/uL (0.8-4.8) 05/24/22 10:05 [place] # (Auto) 0.7 10^3/uL (0.2-0.9) 05/24/22 10:05 Eos # (Auto) 0.2 10^3/uL (0.0-0.8) 05/24/22 10:05 Baso # (Auto) 0.1 10^3/uL (0.0-0.1) 05/24/22 10:05 Nucleated RBC % (auto) 0 % 05/24/22 10:05 Nucleated RBCs # 0.0 /100WBC 05/24/22 10:05 Sodium 141 mmol/L (136-145) 05/24/22 10:05 Potassium 4.3 mmol/L (3.5-5.1) 05/24/22 10:05 Chloride 104 mmol/L (98-107) 05/24/22 10:05 Carbon Dioxide 22 mmol/L (22-29) 05/24/22 10:05 Anion Gap 19.3 (5-19) H 05/24/22 10:05 BUN 18 mg/dL (6-20) 05/24/22 10:05 Creatinine 0.8 mg/dL (0.7-1.2) 05/24/22 10:05 GFR Calculation 98.9 mL/min (90-130) 05/24/22 10:05 Glucose 110 mg/dL (65-115) 05/24/22 10:05 Calculated Osmolality 295 mOsm/kg (285-295) 05/24/22 10:05 Calcium 9.3 mg/dL (8.5-10.5) 05/24/22 10:05 Total Bilirubin 0.3 mg/dL (0.15-1.2) 05/24/22 10:05 AST 13 U/L (0-40) 05/24/22 10:05 ALT 12 U/L (0-41) 05/24/22 10:05 Alkaline Phosphatase 163 U/L (40-130) H 05/24/22 10:05 Total Protein 8.5 g/dL (6.6-8.7) 05/24/22 10:05 Albumin 4.0 g/dL (3.5-5.2) 05/24/22 10:05 Globulin 4.5 g/dL (1.3-4.6) 05/24/22 10:05 Lipase 63 U/L (13-60) H 05/24/22 10:05 Discharge Plan Discharge Patient Disposition: Home Clinical Impression: Cholelithiasis Condition: Stable Prescriptions: No Action acetaminophen 500 mg Tablet 500 mg PO Q6H PRN (Reason: pain) 14 Days Qty: 30 0RF Discharge Orders: Discharge ED (Routine); Ordered 05/24/22 Ordered By: Donavan Edwards Discharge Diet: Advance as tolerated and Clear Liquid Discharge Activity: Increase activity as tolerated Patient Instructions: Biliary Colic (ED), Gallstones (ED), Opioid Safety Activity Restrictions/Additional Instructions: Follow-up with medical provider as directed. Case management should contact you in the next several days set up an appointment with general surgery for follow- up on gallstones. Clear liquid diet for the next 24 to 48 hours and slowly advance diet as tolerated. Take medications as prescribed. Return to the ER or your medical provider if condition worsens and pain is not able to be controlled or cannot keep any food or fluids down. Please read and understand discharge instructions. Thank you for choosing [facility] for your healthcare needs today. Please realize this is an emergency room and that we are providing you with a medical screening exam and this may not be complete and all inclusive of all the testing and or work up that you may need to determine your ailment or severity of your illness. It is very important that you follow up as instructed or that you return to the Emergency Department should you have concerns or if your condition changes or worsens in any way. Coding Level of Care Code ED Sales Assistant Institutional Sales for Doc Fwd Documented by User: Lexa Salas MD 06/07/22 01:32 HPI - Abdominal Pain General: Chief Complaint: Abdominal Pain Stated Complaint: ABDOMINAL PAIN Time Seen by Provider: 05/24/22 10:27 [facility] ED PFSH: Medical History (Updated 06/01/22 @ 00:01 by BON Navarro) Abnormal echocardiogram Benign essential hypertension with target blood pressure below 140/90 Dyslipidemia NSTEMI (non-ST elevated myocardial infarction) Tobacco dependency Two-vessel coronary artery disease Surgical History (Updated 06/01/22 @ 12:46 by Talita Cleveland RN) History of hemorrhoidectomy History of hernia repair Family History Other Cancer Social History Smoking and tobacco status: current every day smoker Alcohol intake: former Course Vital Signs: Vital signs: Vital Signs Temperature 97.5 F L 05/24/22 10:40 Pulse Rate 70 05/24/22 10:40 Respiratory Rate 20 H 05/24/22 10:40 Blood Pressure 157/92 05/24/22 10:40 Pulse Oximetry 95 05/24/22 10:40 Oxygen Delivery Me thod Room Air 05/24/22 10:40 MDM - Abdominal Pain Medical Decision Making Patient is a 57-year-old male comes to the ED via EMS with abdominal pain. Past surgical history of right inguinal hernia repair. Abdominal pain started approximately 4 days ago. Nausea/vomiting and abdominal pain worsens whenever he eats. He rates his pain currently a 10 out of 10. All of his pain is located in the right upper quadrant of his abdomen. Denies any other worsening or improving factors. No bowel movement and decreased urine output over the last couple days because he has not had much to eat or drink since symptoms started. Denies any fevers, diarrhea, chest pain, shortness of breath. Vital stable. Exam shows some right upper quadrant abdominal tenderness and positive Trinidad sign rest of exam is benign. Labs are all unremarkable patient's white count is 10. Ultrasound gallbladder shows some stones. Patient was given a liter of IV fluids, pain and nausea meds. His symptoms improved greatly and were controlled here in the ED. He was able to tolerate p.o. fluids. He was stable to go home and try outpatient treatment and I placed an order with case management for patient be referred to general surgery for follow-up on gallstones. He was sent home with a prescription for pain med and nausea med. Told to do a clear liquid diet for the next 24 hours and slowly advance diet as tolerated. Strict return to ED precautions given. Patient understood and agreed with plan. I have reviewed this documentation by ADENIKE Peralta. I reviewed laboratory studies and imaging. Lexa Salas MD Emergency Medicine Lab Data 05/24/22 10:05 05/24/22 10:05 Labs/Radiology: Radiology Impressions Gallbladder Ultrasound 05/24/22 10:53 IMPRESSION: 1. Abnormal gallbladder. Contracted gallbladder with wall thickening and highly suspicious for stones in the gallbladder neck. Recommend surgical evaluation. 2. No bile duct dilatation. 3. Heterogeneous liver, hepatic steatosis. Laboratory Results WBC 10.4 10^3/uL (4.0-10.0) H 05/24/22 10:05 RBC 5.23 10^6/uL (4.1-5.3) 05/24/22 10:05 Hgb 15.0 g/dL (11.7-16.6) 05/24/22 10:05 Hct 44.9 % (42.0-52.0) 05/24/22 10:05 MCV 85.9 fl (80-94) 05/24/22 10:05 MCH 28.7 pg (28.0-34.0) 05/24/22 10:05 MCHC 33.4 g/dL (30.0-36.0) 05/24/22 10:05 RDW 11.9 % (12.1-15.1) L 05/24/22 10:05 Plt Count 394 10^3/cmm (130-400) 05/24/22 10:05 MPV 8.5 fL (7.4-10.4) 05/24/22 10:05 Neut % (Auto) 63.1 % 05/24/22 10:05 Lymph % (Auto) 27.6 % 05/24/22 10:05 [place] % (Auto) 7.0 % 05/24/22 10:05 Eos % (Auto) 1.4 % 05/24/22 10:05 Baso % (Auto) 0.5 % 05/24/22 10:05 Neut # (Auto) 6.58 10^3/uL (1.8-7.7) 05/24/22 10:05 Lymph # (Auto) 2.9 10^3/uL (0.8-4.8) 05/24/22 10:05 [place] # (Auto) 0.7 10^3/uL (0.2-0.9) 05/24/22 10:05 Eos # (Auto) 0.2 10^3/uL (0.0-0.8) 05/24/22 10:05 Baso # (Auto) 0.1 10^3/uL (0.0-0.1) 05/24/22 10:05 Nucleated RBC % (auto) 0 % 05/24/22 10:05 Nucleated RBCs # 0.0 /100WBC 05/24/22 10:05 Sodium 141 mmol/L (136-145) 05/24/22 10:05 Potassium 4.3 mmol/L (3.5-5.1) 05/24/22 10:05 Chloride 104 mmol/L (98-107) 05/24/22 10:05 Carbon Dioxide 22 mmol/L (22-29) 05/24/22 10:05 Anion Gap 19.3 (5-19) H 05/24/22 10:05 BUN 18 mg/dL (6-20) 05/24/22 10:05 Creatinine 0.8 mg/dL (0.7-1.2) 05/24/22 10:05 GFR Calculation 98.9 mL/min (90-130) 05/24/22 10:05 Glucose 110 mg/dL (65-115) 05/24/22 10:05 Calculated Osmolality 295 mOsm/kg (285-295) 05/24/22 10:05 Calcium 9.3 mg/dL (8.5-10.5) 05/24/22 10:05 Total Bilirubin 0.3 mg/dL (0.15-1.2) 05/24/22 10:05 AST 13 U/L (0-40) 05/24/22 10:05 ALT 12 U/L (0-41) 05/24/22 10:05 Alkaline Phosphatase 163 U/L (40-130) H 05/24/22 10:05 Total Protein 8.5 g/dL (6.6-8.7) 05/24/22 10:05 Albumin 4.0 g/dL (3.5-5.2) 05/24/22 10:05 Globulin 4.5 g/dL (1.3-4.6) 05/24/22 10:05 Lipase 63 U/L (13-60) H 05/24/22 10:05 Discharge Plan Discharge Patient Disposition: Home Clinical Impression: Cholelithiasis Condition: Stable Prescriptions: No Action acetaminophen 500 mg Tablet 500 mg PO Q6H PRN (Reason: pain) 14 Days Qty: 30 0RF Discharge Orders: Discharge ED (Routine); Ordered 05/24/22 Ordered By: Donavan Edwards Discharge Diet: Advance as tolerated and Clear Liquid Discharge Activity: Increase activity as tolerated Patient Instructions: Biliary Colic (ED), Gallstones (ED), Opioid Safety Activity Restrictions/Additional Instructions: Follow-up with medical provider as directed. Case management should contact you in the next several days set up an appointment with general surgery for follow- up on gallstones. Clear liquid diet for the next 24 to 48 hours and slowly advance diet as tolerated. Take medications as prescribed. Return to the ER or your medical provider if condition worsens and pain is not able to be controlled or cannot keep any food or fluids down. Please read and understand discharge instructions. Thank you for choosing [facility] for your healthcare needs today. Please realize this is an emergency room and that we are providing you with a medical screening exam and this may not be complete and all inclusive of all the testing and or work up that you may need to determine your ailment or severity of your illness. It is very important that you follow up as instructed or that you return to the Emergency Department should you have concerns or if your condition changes or worsens in any way. Coding Level of Care Code ED Sales Assistant Institutional Sales for Doc Sharif
--- NOTE | 2022-05-24 10:53 | US_ITS ---
WS: [id number] RIGHT UPPER QUADRANT ULTRASOUND HISTORY: RUQ abdominal tenderness, nausea and vomiting COMPARISON: None available. Liver: 16.7 cm in length. Top normal size liver. Mild heterogeneity throughout the liver. Poorly visu alized liver due to body habitus. Portal Vein: Normal hepatopetal flow with monophasic waveform. Gallbladder: Contracted gallbladder with mild diffuse wall thickening measuring up to 5 mm. There is shadowing from the neck of the gallbladder suggesting stones. Mobile stones are not identified. CBD: 0.5 cm Pancreas: Obscured by bowel gas. Right kidney: 10.0 cm in length. Normal size and echogenicity. No hydronephrosis or mass. Aorta and IVC: Unremarkable abdominal aorta and IVC. No ascites. US/US gall bladder [id number] IMPRESSION: 1. Abnormal gallbladder. Contracted gallbladder with wall thickening and highl y suspicious for stones in the gallbladder neck. Recommend surgical evaluation. 2. No bile duct dilatation. 3. Heterogeneous liver, hepatic steatosis.
[2022-05-24] MEDS: morphine 4 mg/mL SDV 1 mL IVP ×2 (11:03→13:05)
[2022-05-24] MEDS: metoclopramide 5 mg/mL SDV 2 mL 10 MG IVP (11:03)
[2022-05-24] MEDS: sodium chloride 0.9% 1,000 ML 999 ML IV (11:03)
[2022-05-24 11:05] LABS: Basophils # 0.1 10^3/uL (0.0-0.1); Basophils % 0.5 %; Eosinophils # 0.2 10^3/uL (0.0-0.8); Eosinophils % 1.4 %; Hematocrit 44.9 % (42.0-52.0); Lymphocytes # 2.9 10^3/uL (0.8-4.8); Lymphocytes % 27.6 %; Mean Corpuscular HGB Conc 33.4 g/dL (30.0-36.0); Mean Corpuscular Hemoglobin 28.7 pg (28.0-34.0); Mean Corpuscular Volume 85.9 fl (80-94); Mean Platelet Volume 8.5 fL (7.4-10.4); Monocytes # 0.7 10^3/uL (0.2-0.9); Neutrophils # 6.58 10^3/uL (1.8-7.7); Neutrophils % 63.1 %; Nucleated Red Blood Cells % 0 %; Platelet Count 394 10^3/cmm (130-400); Red Blood Count 5.23 10^6/uL (4.1-5.3); Red Cell Distribution Width 11.9 % (12.1-15.1); White Blood Count 10.4 10^3/uL (4.0-10.0)
--- NOTE | 2022-05-24 11:08 | PC.PHAR ---
pt states not taken meds in 2 months or more states he cant afford them-pt states use to be on aspirin 81mg daily-lipitor 40mg daily-plavix 75mg daily-lisinopril 5mg daily-metoprolol tartrate 25mg [id number] 2.5mg bid and protonix 40mg bid ext med history shows all last filled 09/21/21 30d/s
[2022-05-24 11:21] LABS: Alanine Aminotransferase 12 U/L (0-41); Alkaline Phosphatase 163 U/L (40-130); Anion Gap 19.3 (5-19); Aspartate Amino Transferase 13 U/L (0-40); Blood Urea Nitrogen 18 mg/dL (6-20); Calcium 9.3 mg/dL (8.5-10.5); Carbon Dioxide 22 mmol/L (22-29); Chloride 104 mmol/L (98-107); Globulin 4.5 g/dL (1.3-4.6); Glomerular Filtration Rate 98.9 mL/min (90-130); Glucose 110 mg/dL (65-115); Lipase 63 U/L (13-60); Osmolality Calculated 295 mOsm/kg (285-295); Potassium 4.3 mmol/L (3.5-5.1); Sodium 141 mmol/L (136-145); Total Bilirubin 0.3 mg/dL (0.15-1.2); Total Protein 8.5 g/dL (6.6-8.7)
[2022-05-24] MEDS: HYDROmorphone 1 mg/mL INJ 1 mL IVP (13:50)
[2022-05-24] MEDS: ondansetron 2 mg/ML SDV 2 mL 4 MG IVP (13:50)
--- NOTE | 2022-05-24 15:30 | DCPLANNER ---
Addendum entered by Jyotsna Mcconnell 06/09/22 08:48: This appointment was rescheduled Addendum entered by Jyotsna Mcconnell 05/30/22 09:57: Patient has a follow up appointment scheduled for Tuesday, June 07, 2022 at 1:[address] Houston at general surgery. Original Note: recycling program manager had message to schedule a follow up appointment for patient with general surgery. recycling program manager sent patients information to the front office staff at general surgery. Patients information will be printed and reviewed. Clinic will call clinic will appointment information.
[2022-05-24] MEDS: HYDROcodone-acetaminophen 7.5-325 mg Tablet 1 TAB PO (15:44)
--- NOTE | 2022-05-31 13:10 | DCPLANNER ---
personal lines account manager called patient due to no primary care physician - no answer at this time
== END 2022-05-24 15:45 | disposition home or self-care (01) ==
PROVIDERS: Emergency Provider Physician Assistant
DX: K80.20 Calculus of gallbladder without cholecystitis without obstruction (principal); I10 Essential (primary) hypertension; E78.5 Hyperlipidemia, unspecified; I25.2 Old myocardial infarction; F17.210 Nicotine dependence, cigarettes, uncomplicated
CPT/HCPCS: 76705; 80053; 83690; 85025; 96361; 96374; 96375; 96376; 99285; J1170; J2270; J2405; J2765; J7030

== ENCOUNTER 2022-05-25 00:19 | Observation (INO) | payer SELFPAY ==
[2022-05-25] VITALS (23 sets, daily range): BP systolic 140–199; BP diastolic 67–115; PULSE 59–89; RESP 15–23; TEMP 36.1–37.3; O2SAT 90–98; BMI 28.1
--- NOTE | 2022-05-25 00:31 | W.ED.ABDPA2 ---
HPI - Abdominal Pain General: Chief Complaint: Abdominal Pain Stated Complaint: ABD PAIN Time Seen by Provider: 05/25/22 00:21 Source: patient and EMS Mode of arrival: EMS Limitations: no limitations History of Present Illness: Patient is a 57-year-old female presents to the ED today via EMS for reevaluation of right upper quadrant abdominal pain. Patient states he has had constant pain to his right upper abdomen over the past 4 days. He states he has had associated nausea and vomiting. He has not noticed any changes in bowel habits. No urinary complaints. No fever/chills. Patient was seen in our emergency department yesterday for evaluation. Blood work at the time is fairly unremarkable. US of his gallbladder was abnormal showing a contracted gallbladder with wall thickening and highly suspicious for stones in the gallbladder neck. Note from yesterday is not complete so I am not sure if general surgery consult was obtained but patient states he was referred to a general surgeon upon discharge. He states pain has worsened since discharge thus prompting visit currently. PMH significant for CAD wtih cardiac stenting and HTN. He has not taken his prescribed medications in months because he cannot afford them. MD elicited complaint: abdominal pain Pertinent past history: other (diagnosed with gallstones yesterday) Onset (ago): day(s) Pain Consistency: constant Location: RUQ Severity: severe Quality: sharp Radiation: none Migration to: no migration Relieving factors: nothing Associated Symptoms: Reports nausea and vomiting; Denies change in bowel habits, chills, dysuria, fever(s) and hematuria Review of Systems Const: Denies: fever(s), chills, body aches, fatigue or malaise Card: Denies: chest pain Resp: Denies: dyspnea GI: Reports: abdominal pain, nausea and vomiting; Denies: change in bowel habits : Denies: flank pain, dysuria or hematuria Musc: Denies: neck pain, back pain, extremity pain or joint pain Skin/Breast: Denies: rash Neuro: Denies: headache(s) or dizziness [facility] ED PFSH: Medical History Abnormal echocardiogram Benign essential hypertension with target blood pressure below 140/90 Dyslipidemia NSTEMI (non-ST elevated myocardial infarction) Tobacco dependency Two-vessel coronary artery disease Surgical History History of hemorrhoidectomy History of hernia repair Family History Other Cancer Social History Smoking and tobacco status: current every day smoker Alcohol intake: former Physical Exam Const: COMMON NORMALS: average body habitus, patient oriented x3, no limitations, alert and well nourished GENERAL APPEARANCE: cooperative and in distress (appears uncomfortable) ORIENTATION/CONSCIOUSNESS: Yes awake, Yes oriented to person, Yes oriented to place and Yes oriented to time HENMT: COMMON NORMALS: normocephalic and atraumatic HEAD & SCALP: normal to inspection, normocephalic and atraumatic Eye: COMMON NORMALS: no scleral icterus Neck/C-Spine: COMMON NORMALS: full ROM, no lymphadenopathy, supple and no meningeal signs Chest: COMMONS NORMALS: normal inspection of the chest Resp: COMMON NORMALS: normal respiratory effort and clear to auscultation bilaterally AUSCULTATION: clear to auscultation bilaterally Cardio: COMMON NORMALS: regular rate and regular rhythm RATE: regular rate RHYTHM: regular rhythm GI: COMMON NORMALS: Normal to inspection, nondistended, normoactive bowel sounds present, Soft to palpation, No hepatosplenomegaly present and no masses INSPECTION: Yes normal to inspection AUSCULTATION: Yes normoactive bowel sounds PALPATION: Yes Soft to palpation, Yes Tenderness to palpation present (GI) Details: RUQ (+[place]'s), Yes Guarding due to palpation present (GI) in the RUQ, No Rigid due to palpation and Yes No hepatosplenomegaly present : COMMON NORMALS: Yes no CVA tenderness BLADDER/KIDNEY EXAM: Yes no CVA tenderness Back/Pelvis: COMMON NORMALS: no CVA tenderness and thoracic and lumbar spine normal to inspection Extremity: COMMON NORMALS: normal to inspection GENERAL: Yes normal exam except as noted Neuro: BLAN[place] COMA SCALE: document GCS findings [place] coma scale eye opening: Spontaneous [place] coma scale verbal response: Orientated [place] coma scale motor response: Obey commands [place] coma scale total score: 15 COMMON NORMALS: patient oriented x3 SENSORIUM/ORIENTATION: Yes alert, Yes oriented to person, Yes oriented to place and Yes oriented to time MENINGEAL SIGNS: Yes no meningeal signs Skin: COMMON NORMALS: no rashes or lesions noted GENERAL SKIN EXAM: no rashes or lesions noted Course Consultations: Consultation #1: Dr. De La Cruz/general surgery-recommends admission to hospitalist and he will consult on patient Consultation #2: Dr. Bradley-accepts admission Vital Signs: Vital signs: Vital Signs Temperature 98.0 F 05/25/22 00:22 Pulse Rate 66 05/25/22 01:34 Respiratory Rate 16 05/25/22 01:34 Blood Pressure 162/78 05/25/22 01:37 Pulse Oximetry 93 05/25/22 01:34 Oxygen Delivery Me thod 05/25/22 00:22 MDM - Abdominal Pain Medical Decision Making Patient here for continued and worsening right upper quadrant pain. He was seen at our facility approximately 24 hours ago and had ultrasound imaging which showed a contracted gallbladder with mild diffuse wall thickening measuring up to 5 mm also with findings highly suspicious for stones in the gallbladder neck. Labs at that time were unremarkable so patient was discharged home with instructions to follow-up with general surgery. He returns on today's visit, less than 24 hours later, with worsening discomforts. Vital signs are stable apart from hypertension which patient has a history of and is currently not treating. Blood work shows a white count of 12.4 with a lactate of 2.7. Alk phos elevated at 184 but patient has a normal AST/ALT and tbili. I spoke to general surgeon Dr. De La Cruz who would like the patient admitted to the hospitalist and he will consult on patient in the morning and discuss cholecystectomy. Lab Data 05/25/22 00:33 05/25/22 00:33 Labs/Radiology: Laboratory Results WBC 12.4 10^3/uL (4.0-10.0) H 05/25/22 00:33 RBC 5.54 10^6/uL (4.1-5.3) H 05/25/22 00:33 Hgb 15.8 g/dL (11.7-16.6) 05/25/22 00:33 Hct 48.5 % (42.0-52.0) 05/25/22 00:33 MCV 87.5 fl (80-94) 05/25/22 00:33 MCH 28.5 pg (28.0-34.0) 05/25/22 00:33 MCHC 32.6 g/dL (30.0-36.0) 05/25/22 00:33 RDW 12.0 % (12.1-15.1) L 05/25/22 00:33 Plt Count 403 10^3/cmm (130-400) H 05/25/22 00:33 MPV 8.5 fL (7.4-10.4) 05/25/22 00:33 Neut % (Auto) 78.1 % 05/25/22 00:33 Lymph % (Auto) 14.5 % 05/25/22 00:33 [place] % (Auto) 5.9 % 05/25/22 00:33 Eos % (Auto) 1.0 % 05/25/22 00:33 Baso % (Auto) 0.3 % 05/25/22 00:33 Neut # (Auto) 9.72 10^3/uL (1.8-7.7) H 05/25/22 00:33 Lymph # (Auto) 1.8 10^3/uL (0.8-4.8) 05/25/22 00:33 [place] # (Auto) 0.7 10^3/uL (0.2-0.9) 05/25/22 00:33 Eos # (Auto) 0.1 10^3/uL (0.0-0.8) 05/25/22 00:33 Baso # (Auto) 0.0 10^3/uL (0.0-0.1) 05/25/22 00:33 Nucleated RBC % (auto) 0 % 05/25/22 00:33 Nucleated RBCs # 0.0 /100WBC 05/25/22 00:33 Sodium 136 mmol/L (136-145) 05/25/22 00:33 Potassium 4.1 mmol/L (3.5-5.1) 05/25/22 00:33 Chloride 99 mmol/L (98-107) 05/25/22 00:33 Carbon Dioxide 25 mmol/L (22-29) 05/25/22 00:33 Anion Gap 16.1 (5-19) 05/25/22 00:33 BUN 15 mg/dL (6-20) 05/25/22 00:33 Creatinine 0.7 mg/dL (0.7-1.2) 05/25/22 00:33 GFR Calculation 115.4 mL/min (90-130) 05/25/22 00:33 Glucose 122 mg/dL (65-115) H 05/25/22 00:33 Calculated Osmolality 284 mOsm/kg (285-295) L 05/25/22 00:33 Lactic Acid 2.7 mmol/L (0.5-2.2) H 05/25/22 00:56 Calcium 8.7 mg/dL (8.5-10.5) 05/25/22 00:33 Total Bilirubin 0.5 mg/dL (0.15-1.2) 05/25/22 00:33 AST 30 U/L (0-40) 05/25/22 00:33 ALT 36 U/L (0-41) 05/25/22 00:33 Alkaline Phosphatase 184 U/L (40-130) H 05/25/22 00:33 Total Protein 8.7 g/dL (6.6-8.7) 05/25/22 00:33 Albumin 4.0 g/dL (3.5-5.2) 05/25/22 00:33 Globulin 4.7 g/dL (1.3-4.6) H 05/25/22 00:33 Lipase 36 U/L (13-60) 05/25/22 00:33 Discharge Plan Discharge Patient Disposition: Admitted As Inpatient Clinical Impression: Acute calculous cholecystitis Condition: Stable Prescriptions: No Action Reglan 10 mg tablet 10 mg PO Q6H PRN (Reason: nausea and vomiting) Qty: 20 0RF Coding Level of Care Code ED Tin Recovery Worker for Doc Sharif
[2022-05-25 00:39] LABS: Basophils % 0.3 %; Eosinophils # 0.1 10^3/uL (0.0-0.8); Hematocrit 48.5 % (42.0-52.0); Hemoglobin 15.8 g/dL (11.7-16.6); Lymphocytes # 1.8 10^3/uL (0.8-4.8); Lymphocytes % 14.5 %; Mean Corpuscular HGB Conc 32.6 g/dL (30.0-36.0); Mean Corpuscular Hemoglobin 28.5 pg (28.0-34.0); Mean Corpuscular Volume 87.5 fl (80-94); Mean Platelet Volume 8.5 fL (7.4-10.4); Monocytes # 0.7 10^3/uL (0.2-0.9); Monocytes % 5.9 %; Neutrophils # 9.72 10^3/uL (1.8-7.7); Neutrophils % 78.1 %; Nucleated Red Blood Cells % 0 %; Platelet Count 403 10^3/cmm (130-400); Red Blood Count 5.54 10^6/uL (4.1-5.3); White Blood Count 12.4 10^3/uL (4.0-10.0)
[2022-05-25] MEDS: sodium chloride 0.9% 1,000 ML 999 ML IV (00:51)
[2022-05-25] MEDS: morphine 4 mg/mL SDV 1 mL IVP (00:51)
[2022-05-25 01:01] LABS: Alanine Aminotransferase 36 U/L (0-41); Alkaline Phosphatase 184 U/L (40-130); Anion Gap 16.1 (5-19); Aspartate Amino Transferase 30 U/L (0-40); Blood Urea Nitrogen 15 mg/dL (6-20); Calcium 8.7 mg/dL (8.5-10.5); Carbon Dioxide 25 mmol/L (22-29); Chloride 99 mmol/L (98-107); Creatinine Clr Calc Pharmacy 119.9025; Globulin 4.7 g/dL (1.3-4.6); Glomerular Filtration Rate 115.4 mL/min (90-130); Glucose 122 mg/dL (65-115); Lipase 36 U/L (13-60); Osmolality Calculated 284 mOsm/kg (285-295); Potassium 4.1 mmol/L (3.5-5.1); Sodium 136 mmol/L (136-145); Total Bilirubin 0.5 mg/dL (0.15-1.2); Total Protein 8.7 g/dL (6.6-8.7)
--- NOTE | 2022-05-25 01:21 | ECG_ITS ---
[facility] Test Date: 2022-05-25 Pat Name: Javid Mata Department: Room: Gender: Male Rod Filler: : 1965 Requested By: Sangeeta Palma Order Number: [id number] Eveline MD: Wiliam Echevarria M.D. Measurements Intervals [place] Rate: 60 P: 20 MA: 155 QRS: 8 QRSD: 100 T: 52 QT: 410 QTc: 411 Interpretive Statements SINUS RHYTHM INFERIOR MYOCARDIAL INFARCTION , PROBABLY OLD [40+ ms Q WAVE AND/OR ST/T ABNORMALITY IN II/aVF] Compared to ECG 10/12/2021 08:53:06 Sinus bradycardia no longer present Myocardial infarct finding still present Electronically Signed On 05-25-2022 16:50:34 CDT by Wiliam Echevarria M.D. [email or web address]
--- NOTE | 2022-05-25 01:21 | XRR_ITS ---
PROCEDURE INFORMATION: Exam: XR Chest Exam date and time: 05/25/2022 1:28 AM Age: 57 years old Clinical indication: Screening exam; Pre-operative exam; Patient HX: Pre op for general surgery consultation of cholecystitis. ; Additional info: Admission TECHNIQUE: Imaging protocol: Radiologic exam of the chest. Views: 1 view. COMPARISON: CR XR chest 1V portable [id number] 10/12/2021 6:49 AM FINDINGS: Lungs: There are decreased lung volumes with mild perihilar pulmonary vascular congestion. There are no confluent airspace opacities. Pleural spaces: There are no pleural effusions or pneumothorax. Heart/Mediastinum: The heart size is normal. There is a mildly tortuous thoracic aorta. The trachea is in the midline. Bones/joints: No acute abnormalities. XR/XR chest 1V portable [id number] IMPRESSION: Decreased lung volumes with mild perihilar pulmonary vascular congestion. No confluent airspace opacities.
[2022-05-25 01:25] LABS: Lactic Sepsis W/Reflex 2.7 mmol/L (0.5-2.2)
[2022-05-25] MEDS: piperacillin-tazobactam 3.375 GM in sodium chloride 0.9% (plus) 50 ML IV ×3 (01:35→21:10)
--- NOTE | 2022-05-25 01:53 | PM.HP ---
Providers/Chief Complaint Chief Complaint: ABD PAIN History of Present Illness Javid Mata is a 57 year old male who was discharged from the ER earlier today came back for worsening of right upper quadrant pain based on his leukocytosis worsening, high lactic acid, general surgeon has asked to admit the patient to hospital service he will evaluate the patient in the morning. Patient has been answering some abdominal discomfort right upper quadrant pain for last 4 to 5 days associate with food intake, nausea and vomiting. He is feeling dehydrated with decreased urine output. In the ER earlier today he received Zofran, fentanyl by the EMS, gallbladder ultrasound showing stones in gallbladder neck hepatic steatosis. Patient is stating that every time he is eating he gets excruciating pain right upper quadrant and then he starts vomiting, in total he has had 5-6 episodes of emesis today. He was with a friend at home, he smokes 3 to 4 cigarettes a day, denies use of alcohol. Review of Systems Const: Reports: fever(s) and chills Eyes: Denies: change in vision ENMT: Denies: throat pain Card: Denies: chest pain Resp: Denies: dyspnea GI: Reports: abdominal pain and nausea : Denies: flank pain Musc: Denies: neck pain Skin/Breast: Denies: rash Neuro: Denies: headache(s) Psych: Reports: anxiety Medications/Allergies Home Medications Medication Instructions Recorded Confirmed Last Taken Type metoclopramide HCl 10 mg tablet 10 mg PO Q6H PRN nausea and 05/24/22 Unknown Rx (Reglan) vomiting #20 tabs Allergies Allergy/AdvReac Type Severity Reaction Status Date / Time No Known Allergies Allergy Verified 05/24/22 11:07 PFSH Acute PFSH: Medical History Abnormal echocardiogram Benign essential hypertension with target blood pressure below 140/90 Dyslipidemia NSTEMI (non-ST elevated myocardial infarction) Tobacco dependency Two-vessel coronary artery disease Surgical History History of hemorrhoidectomy History of hernia repair Family History Other Cancer Social History Smoking and tobacco status: current every day smoker Alcohol intake: former Vitals/I&O/Wt Last Vital Signs Temp 98.0 F 05/25/22 00:22 Pulse 66 05/25/22 01:34 Resp 16 05/25/22 01:34 BP 162/78 05/25/22 01:37 Pulse Ox 93 05/25/22 01:34 O2 Del Method 05/25/22 00:22 Weight last 48 hrs Weight 83.915 kg Physical Exam Narrative: Awake and alert Right upper quadrant tenderness on palpation Dehydrated Currently on room air Nonfocal neuro exam Unkept appearance Awake and alert Hemogram: GCS 15 Pleasant and cooperative S1, S2 Data 05/25/22 00:33 05/25/22 00:33 A&P Assessment and plan (1) Cholelithiasis: Qualifiers: Biliary obstruction: without biliary obstruction Cholecystitis presence: without cholecystitis Cholelithiasis location: gallbladder Qualified Code(s): K80.20 - Calculus of gallbladder without cholecystitis without obstruction (2) Acute calculous cholecystitis: Plan Acute calculus cholecystitis General surgery consulted N.p.o. Start Zosyn Start IV fluids Lactic acid could be related to multiple emesis Afebrile No active signs of sepsis Signs of endorgan damage Previous echo revealed preserved ejection fraction with diastolic dysfunction Full code N.p.o. DVT prophylaxis SCDs Continue urgent nature of surgery I would not request any preoperative work-up at this point, Hypertension could be related to right upper quadrant pain, monitor for now Check drug screen Patient is agreeable for the surgery if indicated in the morning Attestations Medical Necessity Statement*: More than 2 midnights anticipated Diagnoses Cholelithiasis K80.20 Biliary obstruction: without biliary obstruction Cholecystitis presence: without cholecystitis Cholelithiasis location: gallbladder Acute calculous cholecystitis K80.00
[2022-05-25 02:25] LABS: Procalcitonin 0.26 ng/mL (0-0.5)
[2022-05-25 02:45] LABS: Reflex Lactate Order REFLEX LACTIC ORDERD
--- NOTE | 2022-05-25 02:45 | PC.NURSE ---
Patient states he does not take any medications at home. When looking in external med history, multiple medications appeared to be filled 09/2021 including Plavix, Lisinopril, aspirin, Atorvastatin, and Metoprolol. When asking patient about these medications he states that he cannot afford them.
[2022-05-25 02:52] LABS: Basophils # 0.1 10^3/uL (0.0-0.1); Basophils % 0.5 %; Eosinophils # 0.1 10^3/uL (0.0-0.8); Eosinophils % 0.8 %; Hematocrit 41.7 % (42.0-52.0); Hemoglobin 13.6 g/dL (11.7-16.6); Lymphocytes # 1.9 10^3/uL (0.8-4.8); Lymphocytes % 15.8 %; Mean Corpuscular HGB Conc 32.6 g/dL (30.0-36.0); Mean Corpuscular Hemoglobin 28.6 pg (28.0-34.0); Mean Corpuscular Volume 87.8 fl (80-94); Mean Platelet Volume 8.4 fL (7.4-10.4); Monocytes # 0.9 10^3/uL (0.2-0.9); Monocytes % 7.2 %; Neutrophils # 8.89 10^3/uL (1.8-7.7); Neutrophils % 75.4 %; Nucleated Red Blood Cells % 0 %; Platelet Count 310 10^3/cmm (130-400); Red Blood Count 4.75 10^6/uL (4.1-5.3); White Blood Count 11.8 10^3/uL (4.0-10.0)
[2022-05-25] MEDS: sodium chloride 0.9% 1,000 ML 75 ML IV ×2 (02:59→16:37)
[2022-05-25 03:11] LABS: Lactic Acid level (Lactate) 2.2 mmol/L (0.5-2.2)
[2022-05-25 03:12] LABS: Alanine Aminotransferase 28 U/L (0-41); Albumin Level 3.5 g/dL (3.5-5.2); Alkaline Phosphatase 149 U/L (40-130); Anion Gap 14.3 (5-19); Aspartate Amino Transferase 22 U/L (0-40); Blood Urea Nitrogen 14 mg/dL (6-20); C Reactive Protein 14.9 mg/L (0.0-4.9); Carbon Dioxide 24 mmol/L (22-29); Chloride 102 mmol/L (98-107); Globulin 3.8 g/dL (1.3-4.6); Glomerular Filtration Rate 115.4 mL/min (90-130); Glucose 104 mg/dL (65-115); Magnesium 1.9 mg/dL (1.7-2.3); Osmolality Calculated 283 mOsm/kg (285-295); Potassium 4.3 mmol/L (3.5-5.1); Sodium 136 mmol/L (136-145); Total Bilirubin 0.4 mg/dL (0.15-1.2); Total Protein 7.3 g/dL (6.6-8.7)
[2022-05-25] MEDS: morphine IR 15 mg Tablet PO (05:30)
[2022-05-25 05:32] LABS: Amphetamines Screen Urine Positive (Negative); Barbiturates Screen Urine Negative (Negative); Benzodiazepines Screen Urine Negative (Negative); Cocaine Screen Urine Negative (Negative); Opiate Screen Urine Positive (Negative); PCP Screen Urine Negative (Negative); THC Screen Urine Negative (Negative)
[2022-05-25 05:33] LABS: Add Urine Microscopic? YES; Bilirubin Urine Neg (Negative); Blood Urine Neg (Negative); Glucose Urine UA Norm (Normal); Ketones Urine Negative (Negative); Leukocyte Esterase Urine Negative (Negative); Nitrate Urine Negative (Negative); Protein Urine Trace (Negative); Urine Appearance Clear (CLEAR); Urine Color Yellow (Yellow); Urobilinogen Urine 1 mg/dL (Negative); pH Urine 6 (5-7)
[2022-05-25 05:34] LABS: Add Urine Culture? No; Mucus Urine 2+ /hpf
--- NOTE | 2022-05-25 10:37 | PM.CONSULT ---
Providers/Reason For Consult Consulting Physician/Specialty*: ER physician Reason for Consult*: Acute cholecystitis Attending Physician: Linda Yusuf MD History of Present Illness History of Present Illness Javid Mata is a 57 year old male who presents with a 2-day history of right upper quadrant pain, nausea and vomiting. Until the patient got pain medicine, the patient stated that the pain was extremely sharp and continuous. The patient's not been able to keep anything down. The patient has not had pain like this before. The patient denies fever or chills. He denies constipation or diarrhea. The patient does smoke approximately half a pack of cigarettes per day. Review of Systems General: Reports: 10 or more systems reviewed and unremarkable except in HPI and below Medications/Allergies Home Medications Medication Instructions Recorded Confirmed Last Taken Type No Known Home Medications 05/25/22 05/25/22 Unknown History Allergies Allergy/AdvReac Type Severity Reaction Status Date / Time No Known Allergies Allergy Verified 05/24/22 11:07 Current Medications Generic Name Dose Route Start Last Admin Trade Name Freq PRN Reason Stop Dose Admin Sodium Chloride 1,000 mls @ 75 mls/hr 05/25/22 02:36 05/25/22 02:59 Sodium Chloride 0.9% IV 75 mls/hr .[id number] MONIK Administration Morphine Sulfate 15 mg 05/25/22 02:36 05/25/22 05:30 Morphine Ir 15 Mg Tablet PO 15 mg Q6H PRN Administration pAIN PFSH Acute PFSH: Medical History Abnormal echocardiogram Benign essential hypertension with target blood pressure below 140/90 Dyslipidemia NSTEMI (non-ST elevated myocardial infarction) Tobacco dependency Two-vessel coronary artery disease Surgical History History of hemorrhoidectomy History of hernia repair Family History Other Cancer Social History Smoking and tobacco status: current every day smoker Alcohol intake: former Vitals/I&O/Wt Last Vital Signs Temp 98.0 F 05/25/22 07:59 Pulse 89 05/25/22 08:50 Resp 16 05/25/22 08:50 BP 145/67 05/25/22 07:59 Pulse Ox 91 05/25/22 08:50 O2 Del Method 05/25/22 08:50 05/24/22 05/25/22 05/25/22 22:59 06:59 14:59 Intake Total 1050 / 1050 Output Total 200 / 200 Balance 850 / 850 Weight last 48 hrs Weight 178 lb 11.2 oz Weight 185 lb Physical Exam Narrative: Generally: No acute distress, the patient appears to be somewhat unkempt HEENT is normocephalic atraumatic Neck: Free range of motion. The patient has no thyromegaly Lungs: Clear to auscultation and percussion I do not appreciate any wheezes or rales Heart: Is regular rate and rhythm without murmurs. There is no S3 or S4. There is no rubs clicks or JVD noted Abdomen: Soft, nondistended, slight right upper quadrant tenderness. The patient does not have any rebound. There is no masses that I can appreciate. There is no hepatosplenomegaly. There are no hernias that I can appreciate. (The patient has had a right inguinal hernia repair with mesh several years ago) there is no costovertebral angle tenderness Extremities: There is no obvious deformities or point tenderness suggestive of fracture. The patient has good capillary refill in both his hands and feet Neurologic: The patient is awake, alert, oriented x3. The patient's Daniel Coma Scale is 15. The patient moves all 4 extremities without difficulty. The patient sensations intact to light touch throughout. Data 05/25/22 02:32 05/25/22 02:32 Micro: Microbiology 05/25/22 02:34 Blood Culture - Preliminary Blood SPECIMEN COLLECTED 05/25/22 02:32 Blood Culture - Preliminary Blood SPECIMEN COLLECTED Attestation for Other Data: I personally reviewed and interpreted the following: (I reviewed all the patient's laboratory results over the last 24 hours. Of also reviewed the patient's ultrasound from yesterday.) A&P Assessment and plan (1) Acute calculous cholecystitis: The risk and benefits of laparoscopic cholecystectomy been explained to the patient. The patient seems to understand these risk and benefits and would like to proceed. Take the patient to the operating room later on today for laparoscopic cholecystectomy. We will continue the patient on antibiotics. We will give the patient a bolus of lactated Ringer's. The patient appears to be somewhat dry this morning. Coding Level of Care Code 71432 Diagnoses Acute calculous cholecystitis K80.00
[2022-05-25] MEDS: sennosides-docusate Tablet 1 TAB PO (11:00)
[2022-05-25] MEDS: lactated ringers 1,000 ML 999 ML IV (11:02)
--- NOTE | 2022-05-25 13:25 | ANES.PREANE2 ---
Pre-Anesthetic Assessment Height/Weight: Height 1.73 m Weight 81.057 kg Temp Pulse Resp BP Pulse Ox O2 Del Method 98.3 F 76 16 141/70 93 05/25/22 13:08 05/25/22 13:08 05/25/22 13:08 05/25/22 13:08 05/25/22 13:08 05/25/22 13:08 Preop Diagnosis: acute cholecystitis Operation Date: 05/25/22 13:30 Proposed Procedures p Laparoscopic Cholecystectomy(Not Applicable) - Maryann De La Cruz MD Familial anesthetic complications: None Was Beta Melina taken within 24 hours: N/A Was Clonidine taken within 24 hours: N/A Last intake: Intake Last Liquid Date 05/24/22 Last Liquid Time 14:00 Last Solid Date 05/24/22 Last Solid Time 16:00 Social Tobacco and No alcohol Exam alert, oriented x 3, clear to auscultation bilaterally and regular rate & rhythm Airway Mallampati: Class II Dentition: full CV/HEM Coronary Artery Disease (NSTEMI w/ 2 Stents in 2021) and Hypertension able to achieve > 4 METS without symptoms Metabolic Hyperlipidemia Anesthetic Plan ASA status: 3 Anesthesia: General Risk of > 500 ml blood loss (7ml/kg in children): No Medications/Allergies Home Medications Medication Instructions Recorded Confirmed Last Taken Type No Known Home Medications 05/25/22 05/25/22 Unknown History Allergies Allergy/AdvReac Type Severity Reaction Status Date / Time No Known Allergies Allergy Verified 05/25/22 13:13 Current Medications Generic Name Dose Route Start Last Admin Trade Name Freq PRN Reason Stop Dose Admin Sodium Chloride 1,000 mls @ 75 mls/hr 05/25/22 02:36 05/25/22 02:59 Sodium Chloride 0.9% IV 75 mls/hr .[id number] MONIK Administration Piperacillin Sod/Tazobactam 50 mls @ 12.5 mls/hr 05/25/22 10:00 05/25/22 12:18 Sod 3.375 gm/ Sodium Chloride IV 12.5 mls/hr Q8H MONIK Administration Protocol Morphine Sulfate 15 mg 05/25/22 02:36 05/25/22 05:30 Morphine Ir 15 Mg Tablet PO 15 mg Q6H PRN Administration pAIN Senna/Docusate Sodium 1 tab 05/25/22 09:00 05/25/22 11:00 Sennosides-Docusate Tablet PO 1 tab DAILY MONIK Administration PFS Anesthesia Medical History Abnormal echocardiogram Benign essential hypertension with target blood pressure below 140/90 Dyslipidemia NSTEMI (non-ST elevated myocardial infarction) Tobacco dependency Two-vessel coronary artery disease Surgical History History of hemorrhoidectomy History of hernia repair Family History Other Cancer Social History Smoking and tobacco status: current every day smoker Alcohol intake: former Data Anesthesia 05/25/22 02:32 05/25/22 02:32 Short CBC 05/25/22 05/25/22 Range/Units 00:33 02:32 WBC 12.4 H 11.8 H (4.0-10.0) 10^3/uL Hgb 15.8 13.6 (11.7-16.6) g/dL Hct 48.5 41.7 L (42.0-52.0) % MCV 87.5 87.8 (80-94) fl Plt Count 403 H 310 (130-400) 10^3/cmm Neut % (Auto) 78.1 75.4 % Neut # (Auto) 9.72 H 8.89 H (1.8-7.7) 10^3/uL BMP 05/25/22 05/25/22 00:33 02:32 Sodium 136 136 Potassium 4.1 4.3 Chloride 99 102 Carbon Dioxide 25 24 BUN 15 14 Creatinine 0.7 0.7 Glucose 122 H 104 Calcium 8.7 8.0 L Liver Function 05/25/22 05/25/22 Range/Units 00:33 02:32 Total Bilirubin 0.5 0.4 (0.15-1.2) mg/dL AST 30 22 (0-40) U/L ALT 36 28 (0-41) U/L Alkaline Phosphatase 184 H 149 H (40-130) U/L Albumin 4.0 3.5 (3.5-5.2) g/dL Urine 05/25/22 Range/Units 05:12 Urine Color Yellow (Yellow) Urine Appearance Clear (CLEAR) Urine pH 6 (5-7) Ur Specific [place] 1.020 (1.005-1.030) Urine Protein Trace (Negative) Urine Glucose (UA) Norm (Normal) Urine Ketones Negative (Negative) Urine Nitrate Negative (Negative) Urine Bilirubin Neg (Negative) Ur Leukocyte Esterase Negative (Negative) Urine RBC None (0-2) /hpf Urine WBC None (0-5) /hpf Coags 05/25/22 02:32 C-Reactive Protein 14.9 H Microbiology 05/25/22 02:34 Blood Culture - Preliminary Blood SPECIMEN COLLECTED 05/25/22 02:32 Blood Culture - Preliminary Blood SPECIMEN COLLECTED Cardiac Studies: Echocardiogram 09/19/21
[2022-05-25] MEDS: sodium chloride 0.9% 1,000 ML 30 ML IV (13:33)
--- NOTE | 2022-05-25 15:15 | P.OP_ITS ---
Operative Report Date of procedure: May 25, 2022 Pre-op diagnosis: Preop Diagnosis acute cholecystitis Post-op diagnosis: same Procedure done: Laparoscopic cholecystectomy Specimens removed/disposition: Gallbladder Surgeon: Maryann De La Cruz Anesthesia: General Estimated blood loss (mL): 30 Complications: None noted Findings: Thickened inflamed gallbladder. The gallbladder was contracted. The cystic duct was transected with a MIN stapler. Condition: stable Disposition: PACU Brief History: 57-year-old gentleman presents with right upper quadrant pain, nausea and vomiting. The patient had evidence of a thickened inflamed gallbladder on ultrasound. The patient's white blood cell count was slightly elevated. Because of this he was admitted. He was given IV antibiotics. The risk and benefits of cholecystectomy were explained to the patient. The patient seemed understand these risk and benefits and wanted to proceed. Procedure: Procedure in detail: The patient was brought to the operating placed in supine position. After adequate general endotracheal anesthesia, the patient's abdomen was prepped and draped in usual sterile fashion. Following this a timeout was performed. The patient identifiers as well as the goals procedure were discussed. Everyone in room agreed. A towel clip was placed on each side of the umbilicus, a curvilinear incision was made in the inferior aspect of the umbilicus with an 11 blade knife. Hemostat was used to dissect down to the fascia. Then a 12 mm port was placed through this wound into the abdomen without difficulty. A 10 mm scope was placed through this port and then 3 standard ports were placed 1 in the sound subxiphoid region. This was a 12 mm port. This was placed under direct vision. Then two 5 mm ports 1 in the midclavicular line approximately 2 cm below the costal margin and then 1 along the anterior axillary line. This was another 5 mm port. All these ports were placed again under direct vision. The patient was placed in reverse Trendelenburg and rolled with his left side down his right side up in order for the bowel to fall away from the right upper quadrant. Were unable to grasp the gallbladder because of this a needle was placed in the gallbladder in order to help decompress it and approximately 30 cc worth of clear somewhat viscous fluid was aspirated from the gallbladder. This allowed us to grasp the tensed gallbladder. Should be mentioned the gallbladder appeared to be white it was thick. A grasper was placed on the dome of the gallbladder. Adhesions were taken down from the gallbladder as we worked our way down to the infundibulum. Another grasper was placed around the infundibulum and then further dissection carried as down to the distal portion of the gallbladder. The patient had relatively dense adhesions to the distal portion of his gallbladder. This was omentum which was carefully removed with a [place]. Suction was also used in order to help delineate and help dissect. I spent a good deal of time creating the critical view. This was somewhat difficult because of the adhesions. 1 thing was clear the patient cystic duct was extremely large. It was approximately 12 to 13 mm across. It was also thickened. This clearly was going into the gallbladder. In obtaining the critical view the gallbladder was taken off the gallbladder fossa for several centimeters in the medial aspect of the gallbladder I also flipped the gallbladder over and took it off the lateral aspect of the gallb ladder so therefore it was easy to delineate the cystic duct from the surrounding structures. The cystic artery was identified. It was clipped with a 5 mm clip. 1 clip close to the gallbladder 2 clips more distal and then scissors were used to transect this. Initially, I tried to use a 12 mm clip to clip the cystic duct. Unfortunately these did not go all the way across the duct. Because of this I thought using a MIN stapler would be best. Again, I was 100% sure that this was the cystic duct. This was clearly going into the gallbladder. It was transected. Once transected I was able to flip the gallbladder up and then using the Bovie cautery the gallbladder was removed from the gallbladder fossa. The plane was somewhat obliterated secondary to inflammation but the Bovie cautery was used for hemostasis. Once the gallbladder was removed from the gallbladder fossa The gallbladder was now placed in Endobag. The gallbladder fossa was carefully inspected. Bovie cautery was used for hemostasis. The liver was dry. The blood was suctioned out of the abdomen. Now the gallbladder was removed from the subxiphoid port without difficulty. Now the rest of the ports were removed under direct vision. There was no bleeding from the ports. The fascia was reapproximated at the umbilical port and the subxiphoid port this was done with 0 Vicryl. And then 4-0 Monocryl was used in a subcuticular fashion to close all 4 incisions. The patient was awakened and taken to recovery room in stable condition. I spoke with the patient's significant other/friend Elizabeth Guzman. I explained to her the above findings. All questions were addressed.
[2022-05-25] MEDS: fentaNYL 50 mcg/mL INJ 2mL 100 MCG IVP (15:41)
--- NOTE | 2022-05-25 16:24 | PM.MISC ---
Miscellaneous Note Purpose of Documentation: Overnight labs and H&P reviewed. Patient with acute cholecystitis. Plan for OR intervention today. No new complaints.
[2022-05-26] MEDS: piperacillin-tazobactam 3.375 GM in sodium chloride 0.9% (plus) 50 ML IV (03:51)
[2022-05-26 03:54] VITALS: BP 121/61; PULSE 84; RESP 18; TEMP 36.8; O2SAT 95
[2022-05-26 05:15] LABS: Basophils % 0.3 %; Hematocrit 40.5 % (42.0-52.0); Hemoglobin 13.1 g/dL (11.7-16.6); Lymphocytes # 1.3 10^3/uL (0.8-4.8); Lymphocytes % 10.8 %; Mean Corpuscular HGB Conc 32.3 g/dL (30.0-36.0); Mean Corpuscular Volume 89.6 fl (80-94); Mean Platelet Volume 9.3 fL (7.4-10.4); Monocytes # 0.7 10^3/uL (0.2-0.9); Monocytes % 6.2 %; Neutrophils # 9.81 10^3/uL (1.8-7.7); Neutrophils % 82.4 %; Nucleated Red Blood Cells % 0 %; Platelet Count 228 10^3/cmm (130-400); Red Blood Count 4.52 10^6/uL (4.1-5.3); Red Cell Distribution Width 12.2 % (12.1-15.1); White Blood Count 11.9 10^3/uL (4.0-10.0)
[2022-05-26 05:39] LABS: Alanine Aminotransferase 52 U/L (0-41); Albumin Level 3.2 g/dL (3.5-5.2); Alkaline Phosphatase 138 U/L (40-130); Blood Urea Nitrogen 7 mg/dL (6-20); Calcium 8.2 mg/dL (8.5-10.5); Carbon Dioxide 20 mmol/L (22-29); Chloride 105 mmol/L (98-107); Globulin 3.8 g/dL (1.3-4.6); Glomerular Filtration Rate 137.9 mL/min (90-130); Glucose 137 mg/dL (65-115); Osmolality Calculated 288 mOsm/kg (285-295); Sodium 139 mmol/L (136-145); Total Bilirubin 0.4 mg/dL (0.15-1.2)
[2022-05-26 05:43] LABS: Anion Gap 18.8 (5-19); Aspartate Amino Transferase 44 U/L (0-40); Potassium 4.8 mmol/L (3.5-5.1)
[2022-05-26] MEDS: sodium chloride 0.9% 1,000 ML 75 ML IV (07:24)
[2022-05-26 07:48] VITALS: BP 157/76; PULSE 86; RESP 18; TEMP 36.9; O2SAT 95
--- NOTE | 2022-05-26 09:45 | PM.PN ---
Subjective Subjective: This patient is status post laparoscopic cholecystectomy. The patient is afebrile. The patient is done well overnight. The patient states that his pain is under good control. The patient is tolerating a full liquid diet. The patient denies nausea or vomiting. He denies constipation or diarrhea. Vitals/I&O/Wt Last Vital Signs Temp 98.4 F 05/26/22 07:48 Pulse 86 05/26/22 07:48 Resp 18 05/26/22 07:48 BP 157/76 05/26/22 07:48 Pulse Ox 95 05/26/22 07:48 O2 Del Method 05/26/22 07:48 O2 Flow Rate 6 05/25/22 15:25 05/25/22 05/26/22 05/26/22 22:59 06:59 14:59 Intake Total 4460 / 4510 1530 / 6040 410 / 410 Output Total 375 / 650 5175 / 5825 Balance 4085 / 3860 -3645 / 215 410 / 410 Weight last 48 hrs Weight 178 lb 11.2 oz Weight 185 lb Physical Exam Narrative: Generally: No acute distress Lungs: Clear to auscultation Heart: Regular rate and rhythm Abdomen: Soft, nontender without masses. Patient has decreased bowel sounds. All incisions look clean and dry. Data 05/26/22 04:52 05/26/22 04:52 Micro: Microbiology 05/25/22 02:34 Blood Culture - Preliminary Blood NEGATIVE TO DATE 05/25/22 02:32 Blood Culture - Preliminary Blood NEGATIVE TO DATE Attestation for Other Data: I personally reviewed and interpreted the following: (Reviewed all labs. The patient's total bilirubin is normal.) A&P Assessment and plan (1) Acute calculous cholecystitis: Status post laparoscopic cholecystectomy. We will feed the patient a regular diet. Patient if the patient tolerates a regular diet, the patient be discharged home this afternoon. The patient can follow-up with Dr. Houston in 1 week. The patient's total bilirubin is normal. The patient's AST and ALT are slightly elevated. This is probably secondary to the dissection in the gallbladder fossa. Attestations Medical Necessity Statement*: Probably home today Coding Level of Care Code Acute Code for [facility] Diagnoses Acute calculous cholecystitis K80.00
--- NOTE | 2022-05-26 10:20 | P.DS_ITS ---
Discharge Providers Date of Admission: 05/25/22 01:49 Date of Discharge: May 26, 2022 Attending Provider at Admission: Isaias Bradley MD Attending Provider at Discharge: Linda Yusuf MD Diagnoses at Discharge Discharge Diagnosis (1) Acute calculous cholecystitis: Details from hospital stay: This is a 57-year-old gentleman who presents with right upper quadrant pain. The patient is found to have acute cholecystitis. The patient was taken the operating room where he underwent a laparoscopic cholecystectomy. The patient was started on Zosyn. The patient had a mild elevation of his white blood cell count. Postoperatively, the patient is done well. Patient is tolerating regular diet. I believe the patient be discharged home at this time. Status: Acute Reason for Visit Reason for Visit: ABD PAIN Hospital Course Hospital Course This patient is done well. Patient's pain is under good control. Physical Exam Narrative: Abdominal exam, soft, nondistended, nontender. The patient's wounds look good. The patient is decreased bowel sounds. Discharge Data Studies Completed and Pending Completed Studies During Hospitalization Category Date Time Status XR chest 1V portable [id number] Urgent Exams 05/25/22 01:21 Completed Pending at discharge Category Date Time Status Blood Culture Stat Lab 05/25/22 02:34 Results Pathology: Surgical [PTH] Routine Pth 05/25/22 15:05 Ordered Radiology Impressions Chest X-Ray 05/25/22 01:21 IMPRESSION: Decreased lung volumes with mild perihilar pulmonary vascular congestion. No confluent airspace opacities. Laboratory Results WBC 11.9 10^3/uL (4.0-10.0) H 05/26/22 04:52 RBC 4.52 10^6/uL (4.1-5.3) 05/26/22 04:52 Hgb 13.1 g/dL (11.7-16.6) 05/26/22 04:52 Hct 40.5 % (42.0-52.0) L 05/26/22 04:52 MCV 89.6 fl (80-94) 05/26/22 04:52 MCH 29.0 pg (28.0-34.0) 05/26/22 04:52 MCHC 32.3 g/dL (30.0-36.0) 05/26/22 04:52 RDW 12.2 % (12.1-15.1) 05/26/22 04:52 Plt Count 228 10^3/cmm (130-400) 05/26/22 04:52 MPV 9.3 fL (7.4-10.4) 05/26/22 04:52 Neut % (Auto) 82.4 % 05/26/22 04:52 Lymph % (Auto) 10.8 % 05/26/22 04:52 Carlton % (Auto) 6.2 % 05/26/22 04:52 Eos % (Auto) 0.0 % 05/26/22 04:52 Baso % (Auto) 0.3 % 05/26/22 04:52 Neut # (Auto) 9.81 10^3/uL (1.8-7.7) H 05/26/22 04:52 Lymph # (Auto) 1.3 10^3/uL (0.8-4.8) 05/26/22 04:52 Carlton # (Auto) 0.7 10^3/uL (0.2-0.9) 05/26/22 04:52 Eos # (Auto) 0.0 10^3/uL (0.0-0.8) 05/26/22 04:52 Baso # (Auto) 0.0 10^3/uL (0.0-0.1) 05/26/22 04:52 Nucleated RBC % (auto) 0 % 05/26/22 04:52 Nucleated RBCs # 0.0 /100WBC 05/26/22 04:52 Sodium 139 mmol/L (136-145) 05/26/22 04:52 Potassium 4.8 mmol/L (3.5-5.1) 05/26/22 04:52 Chloride 105 mmol/L (98-107) 05/26/22 04:52 Carbon Dioxide 20 mmol/L (22-29) L 05/26/22 04:52 Anion Gap 18.8 (5-19) 05/26/22 04:52 BUN 7 mg/dL (6-20) 05/26/22 04:52 Creatinine 0.6 mg/dL (0.7-1.2) L 05/26/22 04:52 GFR Calculation 137.9 mL/min (90-130) H 05/26/22 04:52 Glucose 137 mg/dL (65-115) H 05/26/22 04:52 Calculated Osmolality 288 mOsm/kg (285-295) 05/26/22 04:52 Lactic Acid 2.7 mmol/L (0.5-2.2) H 05/25/22 00:56 Lactic Acid (Sepsis) 2.2 mmol/L (0.5-2.2) 05/25/22 02:32 Calcium 8.2 mg/dL (8.5-10.5) L 05/26/22 04:52 Magnesium 1.9 mg/dL (1.7-2.3) 05/25/22 02:32 Total Bilirubin 0.4 mg/dL (0.15-1.2) 05/26/22 04:52 AST 44 U/L (0-40) H 05/26/22 04:52 ALT 52 U/L (0-41) H 05/26/22 04:52 Alkaline Phosphatase 138 U/L (40-130) H 05/26/22 04:52 C-Reactive Protein 14.9 mg/L (0.0-4.9) H 05/25/22 02:32 Total Protein 7.0 g/dL (6.6-8.7) 05/26/22 04:52 Albumin 3.2 g/dL (3.5-5.2) L 05/26/22 04:52 Globulin 3.8 g/dL (1.3-4.6) 05/26/22 04:52 Lipase 36 U/L (13-60) 05/25/22 00:33 Procalcitonin 0.26 ng/mL (0-0.5) 05/25/22 00:33 Urine Color Yellow (Yellow) 05/25/22 05:12 Urine Appearance Clear (CLEAR) 05/25/22 05:12 Urine pH 6 (5-7) 05/25/22 05:12 Ur Specific Hines 1.020 (1.005-1.030) 05/25/22 05:12 Urine Protein Trace (Negative) 05/25/22 05:12 Urine Glucose (UA) Norm (Normal) 05/25/22 05:12 Urine Ketones Negative (Negative) 05/25/22 05:12 Urine Blood Neg (Negative) 05/25/22 05:12 Urine Nitrate Negative (Negative) 05/25/22 05:12 Urine Bilirubin Neg (Negative) 05/25/22 05:12 Urine Urobilinogen 1 mg/dL (Negative) H 05/25/22 05:12 Ur Leukocyte Esterase Negative (Negative) 05/25/22 05:12 Urine RBC None /hpf (0-2) 05/25/22 05:12 Urine WBC None /hpf (0-5) 05/25/22 05:12 Ur Squamous Epith Cells None /hpf (0-5) 05/25/22 05:12 Amorphous Sediment Not Reportable 05/25/22 05:12 Urine Bacteria None /hpf (NONE) 05/25/22 05:12 Urine Mucus 2+ /hpf 05/25/22 05:12 Urine Opiates Screen Positive ng/mL (Negative) H 05/25/22 05:12 Ur Barbiturates Screen Negative ng/mL (Negative) 05/25/22 05:12 Ur Phencyclidine Scrn Negative ng/mL (Negative) 05/25/22 05:12 Ur Amphetamines Screen Positive ng/mL (Negative) H 05/25/22 05:12 U Benzodiazepines Scrn Negative ng/mL (Negative) 05/25/22 05:12 Urine Cocaine Screen Negative ng/mL (Negative) 05/25/22 05:12 U Marijuana (THC) Screen Negative ng/mL (Negative) 05/25/22 05:12 Vitals Last Vital Signs Temp 98.4 F 05/26/22 07:48 Pulse 86 05/26/22 07:48 Resp 18 05/26/22 07:48 BP 157/76 05/26/22 07:48 Pulse Ox 95 05/26/22 07:48 O2 Del Method 05/26/22 07:48 O2 Flow Rate 6 05/25/22 15:25 Discharge Plan Discharge Patient Disposition: Home Condition: Stable Prescriptions: New acetaminophen 500 mg Tablet 500 mg PO Q6H PRN (Reason: pain) 14 Days Qty: 30 0RF Motrin IB 200 mg capsule 600 mg PO Q8H PRN (Reason: pain) 7 Days Qty: 60 0RF Discharge Orders: Discharge Order (Routine); Ordered 05/26/22 Ordered By: Maryann De La Cruz Referrals: John Houston DO [Physician] - 06/07/22 4:15 pm Horace Snell MD [Referring] - 06/05/22 1:45 pm (You have a new patient appointment with Dr. Snell scheduled for June 05. They ask that you arrive at 1:45 pm to complete paperwork and they will provide information on the sliding scale payment. If you have any questions or need to reschedule please contact them at [phone].) Discharge Diet: Usual diet Discharge Activity: Increase activity as tolerated Patient Instructions: Opioid Safety, Post Anesthesia Care Activity Restrictions/Additional Instructions: no lifting greater than 10 lbs for 1 week. then may return to regular activity. Cleanse wounds with hydrogen peroxide twice daily. May shower but no baths for a week. Dry wounds completely after shower. Discharge Attestations Time Spent in Discharge Care*: less than 30 min Status at Discharge: Cognitive status at discharge: cognitively intact , Behavioral status at discharge: cooperative , Quality Metrics Clinical Quality Measures [ No reported AMI, CVA or VTE this stay] Coding Level of Care Code 54944 Diagnoses Acute calculous cholecystitis K80.00
--- NOTE | 2022-05-26 10:52 | PC.NURSE ---
Notified Mary patient's ride that patient will be discharged. Mary states that she will not be able to pick patient up until after 1:30.
[2022-05-26 14:10] VITALS: BP 157/76; PULSE 86; RESP 18; TEMP 36.9; O2SAT 95
--- NOTE | 2022-05-26 14:11 | PC.NURSE ---
IV removed intact. Patient tolerated well. Patient is A&Ox3. Respirations even and non-labored on room air. Reviewed discharge instructions with patient and friend at bedside. Patient verbalized understanding of discharge instructions and follow up appointment and over the counter medications for pain. Patient wheel chaired to private car.
== END 2022-05-26 14:05 | disposition home or self-care (01) ==
LOC: ER 01:50 → MEDSURG 02:26
PROVIDERS: Surgery Surgical Critical Care; Admitting Provider Internal Medicine; Emergency Provider Physician Assistant; Visit Provider Student in an Organized Health Care Education/Training Program
PROC: 0FT44ZZ Resection of Gallbladder, Percutaneous Endoscopic Approach (ICD-10-PCS; CPT 47562; principal; 2022-05-25 13:30)
DX: K80.00 Calculus of gallbladder with acute cholecystitis without obstruction (principal); I10 Essential (primary) hypertension; I25.10 Atherosclerotic heart disease of native coronary artery without angina pectoris; Z95.5 Presence of coronary angioplasty implant and graft; E78.5 Hyperlipidemia, unspecified; R94.31 Abnormal electrocardiogram [ECG] [EKG]; F17.210 Nicotine dependence, cigarettes, uncomplicated; Z91.14 Patient's other noncompliance with medication regimen
CPT/HCPCS: 47562; 36415; 71045; 80053; 80306; 81001; 83605; 83690; 83735; 84145; 85025; 86140; 87040; 88304; 93005; 96365; 96375; 99285; A4216; G0378; J1100; J2250; J2270; J2405; J2543; J2704; J2710; J3010; J3490; J7030; J7120

== ENCOUNTER 2022-07-26 16:07 | Emergency (ER) | payer SELFPAY ==
[2022-07-26 16:09] VITALS: BP 162/93; PULSE 87; RESP 16; O2SAT 95
--- NOTE | 2022-07-26 16:22 | ECG_ITS ---
[facility] Test Date: 2022-07-26 Pat Name: Javid Mata Department: Room: Gender: Male Client Services Representative: : 1965 Requested By: Vu Jalloh Order Number: [id number] Eveline MD: Wiliam Echevarria M.D. Measurements Intervals [place] Rate: 73 P: 44 CO: 143 QRS: 3 QRSD: 101 T: 54 QT: 398 QTc: 440 Interpretive Statements SINUS RHYTHM INFERIOR MYOCARDIAL INFARCTION , PROBABLY OLD [40+ ms Q WAVE AND/OR ST/T ABNORMALITY IN II/aVF] Compared to ECG 05/25/2022 01:33:50 No significant changes Electronically Signed On 07-26-2022 18:19:17 CDT by Wiliam Echevarria M.D. [email or web address]
--- NOTE | 2022-07-26 16:27 | CTR_ITS ---
PROCEDURE INFORMATION: Exam: CT Head Without Contrast Exam date and time: 07/26/2022 4:41 PM Age: 57 years old Clinical indication: Numbness / parasthesia; Left; Additional info: Intermittent left sided numbness tingling TECHNIQUE: Imaging protocol: Computed tomography of the head without contrast. Radiation optimization: All CT scans at this facility use at least one of these dose optimization techniques: automated exposure control; mA and/or kV adjustment per patient size (includes targeted exams where dose is matched to clinical indication); or iterative reconstruction. REPORTING DATA: Count of CT and Cardiac NM exams in prior 12 months: This patient has received [address] and 0 known cardiac nuclear medicine studies in the 12 months prior to the current study. COMPARISON: CT Head wo IV contrast* [id number] 11/09/2018 10:45 PM RADIATION DOSE METRICS: Total DLP (mGy-cm): 1138 FINDINGS: Brain: Normal. No hemorrhage. Unremarkable white matter. No mass effect. Cerebral ventricles: No ventriculomegaly. Paranasal sinuses: Visualized sinuses are unremarkable. No fluid levels. Mastoid air cells: Visualized mastoid air cells are well aerated. Bones/joints: Unremarkable. No acute fracture. Soft tissues: Unremarkable. CT/CT head wo con* [id number] IMPRESSION: No acute intracranial abnormality.
--- NOTE | 2022-07-26 16:31 | ED_ITS ---
HPI - Dizziness General: Chief Complaint: Dizziness Stated Complaint: NUMBNESS Time Seen by Provider: 07/26/22 16:10 History of Present Illness: HPI Narrative: Patient complains of intermittent left-sided numbness and tingling of his entire body. Patient said this started today about 1545 and, and went through 4 times in the next 45 minutes. Patient said he looked pale and when he sat down the symptoms resolved and stayed away. Patient denies any symptoms at this time. Patient does state he should take blood pressure medicine but he does not take it. Patient is never had this before. MD elicited complaint: other (Numbness and tingling) Onset (ago): hour(s) (About 1 hour) Timing: intermittent Severity: mild History of similar symptoms: No Exacerbating factors: nothing Relieving factors: nothing Associated neuro symptoms: Reports facial numbness and numbness in extremities Review of Systems General: Reports: 10 or more systems reviewed and unremarkable except in HPI and below Neuro: Reports: numbness in extremities [facility] ED PFSH: Medical History Abnormal echocardiogram Benign essential hypertension with target blood pressure below 140/90 Dyslipidemia NSTEMI (non-ST elevated myocardial infarction) Tobacco dependency Two-vessel coronary artery disease Surgical History History of hemorrhoidectomy History of hernia repair Family History Other Cancer Social History Smoking and tobacco status: current every day smoker Alcohol intake: former Substance/Drug Use: former Physical Exam Const: COMMON NORMALS: no acute distress, average body habitus, patient oriented x3, no limitations, healthy appearing, alert and well nourished HENMT: COMMON NORMALS: normocephalic, atraumatic, hearing grossly normal bilaterally, external ears normal, Normal external nose present and moist oral mucous membranes HEAD & SCALP: normocephalic and atraumatic NOSE: Normal e xternal nose present EXTERNAL EAR: Yes external ears normal Eye: COMMON NORMALS: Equal, round and reactive pupils present, EOMs intact bilaterally, conjunctivae normal and no scleral icterus CONJUNCTIVA: Yes conjunctivae normal PUPIL: Yes Equal, round and reactive pupils present Neck/C-Spine: COMMON NORMALS: full ROM, no lymphadenopathy, supple, no meningeal signs, no JVD and Thyroid normal THYROID: Thyroid normal Lymph: LYMPHATIC: no lymphadenopathy noted Chest: COMMONS NORMALS: normal inspection of the chest and normal palpation of entire chest wall Resp: COMMON NORMALS: normal respiratory effort, No retractions, No use of accessory muscles and clear to auscultation bilaterally AUSCULTATION: clear to auscultation bilaterally Cardio: COMMON NORMALS: no JVD, regular rate, regular rhythm, S1 normal heart sound present, S2 normal heart sound present, No gallops present (Cardio), No clicks present (Cardio), No murmurs present (Cardio) and No rub (Cardio) RATE: regular rate RHYTHM: regular rhythm HEART SOUNDS: S1 normal heart sound present and S2 normal heart sound present GI: COMMON NORMALS: Normal to inspection, nondistended, normoactive bowel sounds present, Soft to palpation, non-tender, No hepatosplenomegaly present and no masses PALPATION: Yes Soft to palpation and Yes No hepatosplenomegaly present : COMMON NORMALS: Yes no CVA tenderness BLADDER/KIDNEY EXAM: Yes no CVA tenderness Back/Pelvis: COMMON NORMALS: no CVA tenderness Neuro: COMMON NORMALS: patient oriented x3 SENSORIUM/ORIENTATION: Yes alert MENINGEAL SIGNS: Yes no meningeal signs Course Vital Signs: Vital signs: Vital Signs Pulse Rate 76 07/26/22 19:00 Respiratory Rate 16 07/26/22 19:00 Blood Pressure 163/97 07/26/22 19:00 Pulse Oximetry 95 07/26/22 19:00 Oxygen Delivery Me thod Room Air 07/26/22 16:45 MDM - Dizziness Medical Decision Making Patient presents to the ER with complaints of left-sided numbness and tingling off and on that lasted about 45 minutes. Patient is never had this before. Patient did admit noncompliance with medication use. Physical exam was performed work-up was obtained lab work was essentially benign except for positive amphetamines on urine drug screen, head CT was negative. Patient be discharged home to follow-up with his PCP in the next 7 to 10 days as needed. Differential Diagnosis Unlikely adverse reaction to drug, benign paroxysmal positional vertigo, orthostatic hypotension, vertebral basilar insufficiency, cerebrovascular a ccident, acute vestibular neuronitis or transient cerebral ischemia Medical Records I reviewed the patient's medical records. Lab Data I reviewed the patient's lab results. 07/26/22 16:37 07/26/22 16:[address] 07/26/22 16:27 IMPRESSION: No acute intracranial abnormality. Laboratory Results WBC 6.9 10^3/uL (4.0-10.0) 07/26/22 16:37 RBC 4.72 10^6/uL (4.1-5.3) 07/26/22 16:37 Hgb 13.0 g/dL (11.7-16.6) 07/26/22 16:37 Hct 40.9 % (42.0-52.0) L 07/26/22 16:37 MCV 86.7 fl (80-94) 07/26/22 16:37 MCH 27.5 pg (28.0-34.0) L 07/26/22 16:37 MCHC 31.8 g/dL (30.0-36.0) 07/26/22 16:37 RDW 12.7 % (12.1-15.1) 07/26/22 16:37 Plt Count 282 10^3/cmm (130-400) 07/26/22 16:37 MPV 8.6 fL (7.4-10.4) 07/26/22 16:37 Neut % (Auto) 57.5 % 07/26/22 16:37 Lymph % (Auto) 30.0 % 07/26/22 16:37 [place] % (Auto) 8.5 % 07/26/22 16:37 Eos % (Auto) 3.0 % 07/26/22 16:37 Baso % (Auto) 0.9 % 07/26/22 16:37 Neut # (Auto) 3.97 10^3/uL (1.8-7.7) 07/26/22 16:37 Lymph # (Auto) 2.1 10^3/uL (0.8-4.8) 07/26/22 16:37 [place] # (Auto) 0.6 10^3/uL (0.2-0.9) 07/26/22 16:37 Eos # (Auto) 0.2 10^3/uL (0.0-0.8) 07/26/22 16:37 Baso # (Auto) 0.1 10^3/uL (0.0-0.1) 07/26/22 16:37 Nucleated RBC % (auto) 0 % 07/26/22 16:37 Nucleated RBCs # 0.0 /100WBC 07/26/22 16:37 Sodium 140 mmol/L (136-145) 07/26/22 16:37 Potassium 4.1 mmol/L (3.5-5.1) 07/26/22 16:37 Chloride 104 mmol/L (98-107) 07/26/22 16:37 Carbon Dioxide 27 mmol/L (22-29) 07/26/22 16:37 Anion Gap 13.1 (5-19) 07/26/22 16:37 BUN 13 mg/dL (6-20) 07/26/22 16:37 Creatinine 1.1 mg/dL (0.7-1.2) 07/26/22 16:37 GFR Calculation 68.5 mL/min (90-130) L 07/26/22 16:37 Glucose 89 mg/dL (65-115) 07/26/22 16:37 Calculated Osmolality 290 mOsm/kg (285-295) 07/26/22 16:37 Calcium 8.7 mg/dL (8.5-10.5) 07/26/22 16:37 Total Bilirubin 0.2 mg/dL (0.15-1.2) 07/26/22 16:37 AST 10 U/L (0-40) 07/26/22 16:37 ALT 10 U/L (0-41) 07/26/22 16:37 Alkaline Phosphatase 144 U/L (40-130) H 07/26/22 16:37 Troponin T Baseline 6 ng/L (0-15) 07/26/22 16:37 Troponin T 120 Minute 6.00 ng/L (0-15) 07/26/22 18:37 Delta Troponin T 0 ABS# (0-10) 07/26/22 18:37 Total Protein 7.0 g/dL (6.6-8.7) 07/26/22 16:37 Albumin 3.9 g/dL (3.5-5.2) 07/26/22 16:37 Globulin 3.1 g/dL (1.3-4.6) 07/26/22 16:37 Urine Color Yellow (Yellow) 07/26/22 18:54 Urine Appearance Clear (CLEAR) 07/26/22 18:54 Urine pH 6 (5-7) 07/26/22 18:54 Ur Specific [place] 1.015 (1.005-1.030) 07/26/22 18:54 Urine Protein Neg (Negative) 07/26/22 18:54 Urine Glucose (UA) Norm (Normal) 07/26/22 18:54 Urine Ketones Negative (Negative) 07/26/22 18:54 Urine Blood Neg (Negative) 07/26/22 18:54 Urine Nitrate Negative (Negative) 07/26/22 18:54 Urine Bilirubin Neg (Negative) 07/26/22 18:54 Urine Urobilinogen Norm mg/dL (Negative) 07/26/22 18:54 Ur Leukocyte Esterase Negative (Negative) 07/26/22 18:54 Urine Opiates Screen Negative ng/mL (Negative) 07/26/22 18:54 Ur Barbiturates Screen Negative ng/mL (Negative) 07/26/22 18:54 Ur Phencyclidine Scrn Negative ng/mL (Negative) 07/26/22 18:54 Ur Amphetamines Screen Positive ng/mL (Negative) H 07/26/22 18:54 U Benzodiazepines Scrn Negative ng/mL (Negative) 07/26/22 18:54 Urine Cocaine Screen Negative ng/mL (Negative) 07/26/22 18:54 U Marijuana (THC) Screen Negative ng/mL (Negative) 07/26/22 18:54 EKG Data EKG 1: I personally reviewed and interpreted this EKG as follows: EKG interpretation date: 07/26/22 EKG interpretation time: 17:09 Prior EKG tracings: not available for review Interpretation: EKG showed ventricular rate of 73 bpm, [place] interval 143, QRS duration 101, QTc of 424, sinus rhythm, Q waves and/or ST abnormalities in leads II/aVF. Discharge Plan Discharge Patient Disposition: Home Clinical Impression: Numbness and tingling, Amphetamine use Hypertension Qualifiers: Hypertension type: primary hypertension Qualified Code(s): I10 - Essential (primary) hypertension Condition: Stable Discharge Orders: Discharge ED (Routine); Ordered 07/26/22 Ordered By: Vu Jalloh Patient Instructions: Hypertension, Methamphetamine Use Disorder (ED), Numbness and Tingling Activity Restrictions/Additional Instructions: Please find yourself a primary care physician and follow-up for your hypertension as you may benefit from medication. You may also benefit from further evaluation testing for your numbness and tingling.. Please do not use any more amphetamines as this may potentiate your problem and cause other problems. 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
[2022-07-26 16:45] VITALS: BP 156/100; PULSE 76; O2SAT 95
[2022-07-26 16:46] LABS: Basophils # 0.1 10^3/uL (0.0-0.1); Basophils % 0.9 %; Eosinophils # 0.2 10^3/uL (0.0-0.8); Hematocrit 40.9 % (42.0-52.0); Lymphocytes # 2.1 10^3/uL (0.8-4.8); Mean Corpuscular HGB Conc 31.8 g/dL (30.0-36.0); Mean Corpuscular Hemoglobin 27.5 pg (28.0-34.0); Mean Corpuscular Volume 86.7 fl (80-94); Mean Platelet Volume 8.6 fL (7.4-10.4); Monocytes # 0.6 10^3/uL (0.2-0.9); Monocytes % 8.5 %; Neutrophils # 3.97 10^3/uL (1.8-7.7); Neutrophils % 57.5 %; Nucleated Red Blood Cells % 0 %; Platelet Count 282 10^3/cmm (130-400); Red Blood Count 4.72 10^6/uL (4.1-5.3); Red Cell Distribution Width 12.7 % (12.1-15.1); White Blood Count 6.9 10^3/uL (4.0-10.0)
[2022-07-26 17:02] LABS: Troponin(5th) Baseline 6 ng/L (0-15)
[2022-07-26 17:06] LABS: Alanine Aminotransferase 10 U/L (0-41); Albumin Level 3.9 g/dL (3.5-5.2); Alkaline Phosphatase 144 U/L (40-130); Anion Gap 13.1 (5-19); Aspartate Amino Transferase 10 U/L (0-40); Blood Urea Nitrogen 13 mg/dL (6-20); Calcium 8.7 mg/dL (8.5-10.5); Carbon Dioxide 27 mmol/L (22-29); Chloride 104 mmol/L (98-107); Creatinine Clr Calc Pharmacy 75.3738; Globulin 3.1 g/dL (1.3-4.6); Glomerular Filtration Rate 68.5 mL/min (90-130); Glucose 89 mg/dL (65-115); Osmolality Calculated 290 mOsm/kg (285-295); Potassium 4.1 mmol/L (3.5-5.1); Sodium 140 mmol/L (136-145); Total Bilirubin 0.2 mg/dL (0.15-1.2)
[2022-07-26 17:15] VITALS: BP 154/95; PULSE 81; O2SAT 95
[2022-07-26] MEDS: sodium chloride 0.9% 1,000 ML 999 ML IV (18:18)
[2022-07-26 19:00] VITALS: BP 163/97; PULSE 76; RESP 16; O2SAT 95
[2022-07-26 19:01] LABS: Add Urine Microscopic? NO; Charge for UA Resulting for Rev
[2022-07-26 19:06] LABS: Glucose Urine UA Norm (Normal); Protein Urine Neg (Negative); Specific Gravity, Urine 1.015 (1.005-1.030); Urine Appearance Clear (CLEAR); Urine Color Yellow (Yellow); pH Urine 6 (5-7)
[2022-07-26 19:07] LABS: Bilirubin Urine Neg (Negative); Blood Urine Neg (Negative); Ketones Urine Negative (Negative); Leukocyte Esterase Urine Negative (Negative); Nitrate Urine Negative (Negative); Urobilinogen Urine Norm (Negative)
[2022-07-26 19:16] LABS: Troponin 5 2HR Delta 0 ABS# (0-10)
[2022-07-26 19:44] LABS: Amphetamines Screen Urine Positive (Negative); Barbiturates Screen Urine Negative (Negative); Benzodiazepines Screen Urine Negative (Negative); Cocaine Screen Urine Negative (Negative); Opiate Screen Urine Negative (Negative); PCP Screen Urine Negative (Negative); THC Screen Urine Negative (Negative)
[2022-07-26 20:15] VITALS: BP 167/94; PULSE 82; RESP 16; O2SAT 95
--- NOTE | 2022-08-03 13:28 | DCPLANNER ---
manager assembly called patient due to no primary care physician - no answer at this time.
== END 2022-07-26 20:17 | disposition home or self-care (01) ==
PROVIDERS: Emergency Provider Emergency Medicine
DX: R20.0 Anesthesia of skin (principal); I10 Essential (primary) hypertension; F15.90 Other stimulant use, unspecified, uncomplicated; E78.5 Hyperlipidemia, unspecified; I25.2 Old myocardial infarction; I25.10 Atherosclerotic heart disease of native coronary artery without angina pectoris; F17.210 Nicotine dependence, cigarettes, uncomplicated
CPT/HCPCS: 36415; 70450; 80053; 80306; 81003; 84484; 85025; 93005; 99285; J7030